=== PATIENT | male | born 1950 | race Caucasian/White ===

== ENCOUNTER → 2017-04-26 | Outpatient (CLI) | payer MEDICARE ==
[2017-04-26 11:00] LABS: Blood Urea Nitrogen 21 mg/dL (9-20)
== END | disposition home or self-care (01) ==
LOC: LABWHC1 10:19
PROVIDERS: ATTEND Orthopaedic Surgery
DX: S43.422A Sprain of left rotator cuff capsule, initial encounter (principal); M25.511 Pain in right shoulder; M75.41 Impingement syndrome of right shoulder; M65.811 Other synovitis and tenosynovitis, right shoulder; E11.9 Type 2 diabetes mellitus without complications; M19.011 Primary osteoarthritis, right shoulder; M25.512 Pain in left shoulder; M75.42 Impingement syndrome of left shoulder; M19.012 Primary osteoarthritis, left shoulder; M65.812 Other synovitis and tenosynovitis, left shoulder
CPT/HCPCS: 36415; 82565; 84520

== ENCOUNTER → 2017-04-30 | Outpatient (CLI) | payer MEDICARE ==
[2017-04-30 17:30] LABS: Blood Urea Nitrogen 21 mg/dL (9-20)
--- NOTE | 2017-04-30 18:08 | CT ---
EXAMINATION TYPE: CT shoulder RT w con DATE OF EXAM: 04/30/2017 COMPARISON: NONE HISTORY: Right shoulder pain. CT DLP: 318.8 mGycm Automated exposure control for dose reduction was used. CONTRAST: Performed with IV Contrast, patient injected with 100 mL of Omnipaque 300. FINDINGS: There is severe narrowing of the glenohumeral joint space. There is spurring of the humeral head and glenoid demi. There is subchondral cystic change on both sides of the shoulder joint. There is some spurring at the AC joint. There is some calcification at the greater tuberosity of the humerus. IMPRESSION: SEVERE OSTEOARTHRITIS AT THE GLENOHUMERAL JOINT. MILD CALCIFIC TENDINITIS. NO FRACTURE SEEN.
--- NOTE | 2017-04-30 18:42 | CT ---
EXAMINATION TYPE: CT shoulder LT w con DATE OF EXAM: 04/30/2017 COMPARISON: NONE HISTORY: Left shoulder pain and catching. CT DLP: 318.8 mGycm Automated exposure control for dose reduction was used. CONTRAST: Performed with IV Contrast, patient injected with 100 mL of Omnipaque 300. FINDINGS: There is extensive metal artifact from the left shoulder prosthesis. I see no fracture nor dislocatio n. There is spurring of the glenoid demi. The scapula appears intact. The acromioclavicular joint is intact. Prosthesis appears in reasonable anatomic position. I see no pathologic enhancement. IMPRESSION: LIMITED EXAM DUE TO METAL ARTIFACT. NO FRACTURE SEEN. PROSTHESIS APPEARS IN ANATOMIC POSITION.
== END | disposition home or self-care (01) ==
LOC: RADCTMAIN 15:50
PROVIDERS: ATTEND Orthopaedic Surgery
DX: M19.011 Primary osteoarthritis, right shoulder (principal); M25.512 Pain in left shoulder; M25.511 Pain in right shoulder; M75.41 Impingement syndrome of right shoulder; M65.811 Other synovitis and tenosynovitis, right shoulder; E11.9 Type 2 diabetes mellitus without complications; S43.422A Sprain of left rotator cuff capsule, initial encounter; M75.42 Impingement syndrome of left shoulder; M19.012 Primary osteoarthritis, left shoulder; M65.812 Other synovitis and tenosynovitis, left shoulder
CPT/HCPCS: 82565; 84520; 73201 ×2; Q9967

== ENCOUNTER → 2019-05-20 | Outpatient (CLI) | payer MEDICARE ==
--- NOTE | 2019-05-20 12:04 | XR ---
EXAMINATION TYPE: XR chest 2V DATE OF EXAM: 05/20/2019 COMPARISON: 10/19/2013 TECHNIQUE: PA and lateral views submitted. HISTORY: Preop FINDINGS: No pleural effusion or pneumothorax. Postsurgical change left shoulder. Degenerative change of the sp ine. Coarsened interstitium with subsegmental changes at both lung bases. IMPRESSION: 1. Basilar atelectasis bilaterally likely related to reduced inspiration. 2. Coarsened interstitium may been the basis of mild chronic interstitial lung disease or secondary t o poor inspiration. Interstitial pneumonitis or venous congestion felt less likely correlate clinical ly..
== END | disposition home or self-care (01) ==
LOC: RADXRMAIN 11:47
PROVIDERS: ATTEND Family Medicine
DX: J98.11 Atelectasis (principal); R91.8 Other nonspecific abnormal finding of lung field
CPT/HCPCS: 71046

== ENCOUNTER → 2019-10-01 | Outpatient (CLI) | payer MEDICARE ==
[2019-10-01 16:49] LABS: African American GFR (CKD) 101.4 (60.0-200.0); Albumin 4.1 g/dL (3.80-4.90); Albumin/Globulin Ratio 1.86 (1.60-3.17); Anion Gap 5.2 mmol/L (4.00-12.00); BUN/Creat Ratio 17.78 Ratio (12.00-20.00); Calcium 8.9 mg/dL (8.7-10.3); Carbon Dioxide 30.8 mmol/L (21.6-31.8); Chol/HDL Ratio 2.85; Globulin 2.2 g/dL (1.6-3.3); LDL Cholesterol,Calculated 59.8 mg/dL (0.0-131.0); Non-African American GFR(CKD) 87.5 (60.0-200.0); Potassium 4.3 mmol/L (3.5-5.5); Total Bilirubin 1.1 mg/dL (0.2-1.2); Total Protein 6.3 g/dL (6.2-8.2); VLDL Calculation 16.2 mg/dL (5.00-40.00)
[2019-10-01 17:45] LABS: Urine Creatinine 108.2 mg/dL
[2019-10-01 19:51] LABS: Hemoglobin A1C 7.1 % (4.0-6.0)
== END | disposition home or self-care (01) ==
LOC: LABWHC1 07:20
PROVIDERS: ATTEND Internal Medicine Endocrinology, Diabetes & Metabolism
DX: E11.65 Type 2 diabetes mellitus with hyperglycemia (principal)
CPT/HCPCS: 36415; 80053; 80061; 82043; 82570; 83036; 84443

== ENCOUNTER → 2020-01-11 | Outpatient (CLI) | payer MEDICARE ==
--- NOTE | 2020-01-11 16:11 | CT ---
EXAMINATION TYPE: CT chest wo con DATE OF EXAM: 01/11/2020 COMPARISON: Chest x-ray dated 12/24/2019 HISTORY: Pneumonia CT DLP: 1635.4 mGycm. Automated Exposure Control for Dose Reduction was Utilized. TECHNIQUE: CT scan of the thorax is performed without IV contrast in prone and supine positions in a limited fashion using high-resolution algorithm. FINDINGS: Lack of intravenous contrast could compromise sensitivity. LUNGS: The lungs are remarkable for some thickened parenchymal bands within the lingula, there is no concerning parenchymal mass or nodule identified. There is no pleural effusion or pneumothorax seen . The tracheobronchial tree is patent. MEDIASTINUM: Lack of IV contrast is noted to limit evaluation for mediastinal and especially hilar ad enopathy. There are no definitive greater than 1 cm hilar or mediastinal lymph nodes. No cardiomega ly or pericardial effusion is seen. There are prominent epicardial fat pads OTHER: Ascending aorta is aneurysmal at 4.8 cm, there are coronary artery calcifications, possible mi tral annular calcification. There is thoracic spondylosis. IMPRESSION: Pneumonia is not evident. Some probable scarring suspected within the lingula. Aortic ane urysm, coronary artery disease.
== END | disposition home or self-care (01) ==
LOC: RADCTMAIN 07:02
PROVIDERS: ATTEND Internal Medicine Critical Care Medicine
DX: I25.10 Atherosclerotic heart disease of native coronary artery without angina pectoris (principal); I25.41 Coronary artery aneurysm; J18.9 Pneumonia, unspecified organism
CPT/HCPCS: 71250

== ENCOUNTER 2020-05-10 12:43 | Inpatient (IN) | payer MEDICARE ==
[2020-05-10] MEDS ORDERED: ALBUTEROL NEBULIZED 2.5 MG/3 ML INHALATION STA (14:12)
--- NOTE | 2020-05-10 14:20 | ED ---
SOB HPI - General Chief Complaint: Shortness of Breath Stated Complaint: SOB Time Seen by Provider: 05/10/20 14:00 Source: patient, family, RN notes reviewed Mode of arrival: ambulatory Limitations: no limitations - History of Present Illness Initial Comments: Patient is 70-year-old male presents to emergency department complaining of shortness of breath. He noted that for about the last year he's been battling several bouts of pneumonia and has taken several antibiotic courses to no benefit. He states that he follows up with Dr. Lemos. He is also seen Dr. Galloway. He noted that the prednisone and albuterol inhaler help with shortness of breath temporarily. He noted that he is short of breath at rest, but can sit there for a decent amount time and then gets a dyspneic spell where he starts to cough. He noted that he has a dry cough and only infrequently gets a production of white/yellow mucus. He did note the patient has gained weight since being on steroids. Patient states that he has to sit up while laying in bed or chairs to prevent himself from being short of breath. She denied any chest pain headache nausea vomiting diarrhea constipation fever fatigue chills. 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 He does not smoke. - Related Data Home Medications Medication Instructions Recorded Confirmed Atorvastatin [Lipitor] 40 mg PO HS 07/26/13 05/10/20 Cetirizine HCl [Zyrtec] 10 mg PO DAILY 07/26/13 05/10/20 Albuterol Nebulized [Ventolin 2.5 mg INHALATION RT-QID PRN 05/10/20 05/10/20 Nebulized] Apixaban [Eliquis] 5 mg PO DAILY 05/10/20 05/10/20 Carvedilol [Coreg] 12.5 mg PO HS 05/10/20 05/10/20 Cyclobenzaprine [Flexeril] 10 mg PO TID PRN 05/10/20 05/10/20 Exenatide Microspheres [Bydureon 2 mg SQ MO 05/10/20 05/10/20 Pen] INSULIN ASPART (NovoLOG) [NovoLOG 5 - 15 unit SQ TID-W/MEALS 05/10/20 05/10/20 (formulary)] Insulin Glargine,Hum.rec.anlog 80 unit SQ DAILY 05/10/20 05/10/20 [Paulino Hicks] Magnesium Oxide [Funk] 500 mg PO HS 05/10/20 05/10/20 Multivitamins, Thera [Multivitamin 1 tab PO DAILY 05/10/20 05/10/20 (formulary)] Olmesartan Medoxomil [Benicar] 20 mg PO DAILY 05/10/20 05/10/20 Potassium Gluconate 99 mg PO HS 05/10/20 05/10/20 hydroCHLOROthiazide 25 mg PO DAILY 05/10/20 05/10/20 metFORMIN HCL [Glucophage] 1,000 mg PO BID 05/10/20 05/10/20 traMADol HCL [Ultram] 50 mg PO DAILY PRN 05/10/20 05/10/20 Allergies Allergy/AdvReac Type Severity Reaction Status Date / Time adhesive Allergy Rash/Hives Verified 05/10/20 12:59 Penicillins Allergy Rash/Hives Verified 05/10/20 12:59 Review of Systems ROS Statement: Those systems with pertinent positive or pertinent negative responses have been documented in the HPI. ROS Other: All systems not noted in ROS Statement are negative. Past Medical History Past Medical History: Diabetes Mellitus, Hyperlipidemia, Hypertension, Musculoskeletal Disorder, Sleep Apnea/CPAP/BIPAP Additional Past Medical History / Comment(s): HX OF BLACK LUNG, DOESN'T USE CPAP, History of Any Multi-Drug Resistant Organisms: None Reported Past Surgical History: Hernia Repair, Joint Replacement, Tonsillectomy Additional Past Surgical History / Comment(s): JACY KNEE REPLACEMENT, LEFT SHOULDER "BALL" REPLACED, Additional Past Anesthesia/Blood Transfusion Reaction / Comment(s): STATES HAS AWAKENED DURING SEVERAL SX INCLUDING JOINT REPLACEMENT Past Psychological History: No Psychological Hx Reported Smoking Status: Never smoker Past Alcohol Use History: None Reported Past Drug Use History: None Reported General Exam Limitations: no limitations General appearance: alert, in no apparent distress, obese Head exam: Present: atraumatic, normocephalic, normal inspection Eye exam: Present: normal appearance, PERRL, EOMI. Absent: scleral icterus, conjunctival injection, periorbital swelling ENT exam: Present: normal exam, mucous membranes moist Neck exam: Present: normal inspection. Absent: tenderness, meningismus, lymphadenopathy Respiratory exam: Present: wheezes (In the left middle lobe.), decreased breath sounds. Absent: respiratory distress, rales, rhonchi, stridor Cardiovascular Exam: Present: regular rate, normal rhythm, normal heart sounds. Absent: systolic murmur, diastolic murmur, rubs, gallop, clicks GI/Abdominal exam: Present: soft, normal bowel sounds. Absent: distended, tenderness, guarding, rebound, rigid Extremities exam: Present: normal inspection, full ROM, normal capillary refill. Absent: tenderness, pedal edema, joint swelling, calf tenderness Neurological exam: Present: alert, oriented X3, CN II-XII intact Psychiatric exam: Present: normal affect, normal mood Skin exam: Present: warm, dry, intact, normal color. Absent: rash Course Vital Signs 05/10/20 05/10/20 05/10/20 13:00 14:40 14:50 Temperature 98 F Pulse Rate 73 76 76 Respiratory 24 Rate Blood Pressure 149/88 O2 Sat by Pulse 93 L Oximetry 05/10/20 05/10/20 05/10/20 17:38 20:01 21:29 Temperature 97.9 F Pulse Rate 76 82 82 Respiratory 18 18 18 Rate Blood Pressure 114/66 124/75 133/79 O2 Sat by Pulse 93 L 94 L 94 L Oximetry - Reevaluation(s) Reevaluation #1: 05/10/20 16:12 Patient did note that the breathing treatment did improve his dyspnea. He noted that he was more relaxed. He was informed that we will be ordering a CT chest for PE. Reevaluation #2: 05/10/20 17:28 Upon reevaluation patient's blood glucose was borderline low, he was informed that we could give him a couple things of orange juice to raise her blood sugar. While he waits for CT. Medical Decision Making - Medical Decision Making 70-year-old male complaining of shortness of breath for the past year, located by several bouts of pneumonia. winemaker, EKG, oxygen via nasal cannula at 2 L/m him a labs, chest x-ray ordered. Albuterol nebulize treatment ordered. - Lab Data Result diagrams: 05/10/20 14:38 05/10/20 14:38 Lab Results 05/10/20 05/10/20 05/10/20 Range/Units 14:38 14:38 14:38 WBC 8.7 (3.8-10.6) k/uL RBC 6.06 H (4.30-5.90) m/uL Hgb 17.5 (13.0-17.5) gm/dL Hct 54.2 H (39.0-53.0) % MCV 89.5 (80.0-100.0) fL MCH 29.0 (25.0-35.0) pg MCHC 32.4 (31.0-37.0) g/dL RDW 14.2 (11.5-15.5) % Plt Count 242 (150-450) k/uL MPV 7.0 Neutrophils % 66 % Lymphocytes % 17 % Monocytes % 11 % Eosinophils % 3 % Basophils % 1 % Neutrophils # 5.7 (1.3-7.7) k/uL Lymphocytes # 1.5 (1.0-4.8) k/uL Monocytes # 1.0 (0-1.0) k/uL Eosinophils # 0.3 (0-0.7) k/uL Basophils # 0.1 (0-0.2) k/uL PT 10.2 (9.0-12.0) sec INR 0.9 (<1.2) APTT 24.7 (22.0-30.0) sec Sodium (137-145) mmol/L Potassium (3.5-5.1) mmol/L Chloride (98-107) mmol/L Carbon Dioxide (22-30) mmol/L Anion Gap mmol/L BUN (9-20) mg/dL Creatinine (0.66-1.25) mg/dL Est GFR (CKD-EPI)AfAm (>60 ml/min/1.73 sqM) Est GFR (CKD-EPI)NonAf (>60 ml/min/1.73 sqM) Glucose (74-99) mg/dL POC Glucose (mg/dL) (75-99) mg/dL POC Glu Label Drier ID Plasma Lactic Acid Vel (0.7-2.0) mmol/L Calcium (8.4-10.2) mg/dL Total Bilirubin (0.2-1.3) mg/dL AST (17-59) U/L ALT (4-49) U/L Alkaline Phosphatase (38-126) U/L Troponin I (0.000-0.034) ng/mL NT-Pro-B Natriuret Pep pg/mL Total Protein (6.3-8.2) g/dL Albumin (3.5-5.0) g/dL Urine Color Yellow Urine Appearance Clear (Clear) Urine pH 6.5 (5.0-8.0) Ur Specific Bradford 1.013 (1.001-1.035) Urine Protein Negative (Negative) Urine Glucose (UA) Negative (Negative) Urine Ketones Negative (Negative) Urine Blood Negative (Negative) Urine Nitrite Negative (Negative) Urine Bilirubin Negative (Negative) Urine Urobilinogen <2.0 (<2.0) mg/dL Ur Leukocyte Esterase Negative (Negative) Coronavirus (PCR) (Not Detectd) 05/10/20 05/10/20 05/10/20 Range/Units 14:38 14:38 14:38 WBC (3.8-10.6) k/uL RBC (4.30-5.90) m/uL Hgb (13.0-17.5) gm/dL Hct (39.0-53.0) % MCV (80.0-100.0) fL MCH (25.0-35.0) pg MCHC (31.0-37.0) g/dL RDW (11.5-15.5) % Plt Count (150-450) k/uL MPV Neutrophils % % Lymphocytes % % Monocytes % % Eosinophils % % Basophils % % Neutrophils # (1.3-7.7) k/uL Lymphocytes # (1.0-4.8) k/uL Monocytes # (0-1.0) k/uL Eosinophils # (0-0.7) k/uL Basophils # (0-0.2) k/uL PT (9.0-12.0) sec INR (<1.2) APTT (22.0-30.0) sec Sodium 139 (137-145) mmol/L Potassium 4.3 (3.5-5.1) mmol/L Chloride 100 (98-107) mmol/L Carbon Dioxide 31 H (22-30) mmol/L Anion Gap 8 mmol/L BUN 19 (9-20) mg/dL Creatinine 0.83 (0.66-1.25) mg/dL Est GFR (CKD-EPI)AfAm >90 (>60 ml/min/1.73 sqM) Est GFR (CKD-EPI)NonAf 90 (>60 ml/min/1.73 sqM) Glucose 77 (74-99) mg/dL POC Glucose (mg/dL) (75-99) mg/dL POC Glu Label Drier ID Plasma Lactic Acid Vel 1.4 (0.7-2.0) mmol/L Calcium 9.5 (8.4-10.2) mg/dL Total Bilirubin 1.8 H (0.2-1.3) mg/dL AST 34 (17-59) U/L ALT 38 (4-49) U/L Alkaline Phosphatase 80 (38-126) U/L Troponin I <0.012 (0.000-0.034) ng/mL NT-Pro-B Natriuret Pep pg/mL Total Protein 6.9 (6.3-8.2) g/dL Albumin 4.2 (3.5-5.0) g/dL Urine Color Urine Appearance (Clear) Urine pH (5.0-8.0) Ur Specific Bradford (1.001-1.035) Urine Protein (Negative) Urine Glucose (UA) (Negative) Urine Ketones (Negative) Urine Blood (Negative) Urine Nitrite (Negative) Urine Bilirubin (Negative) Urine Urobilinogen (<2.0) mg/dL Ur Leukocyte Esterase (Negative) Coronavirus (PCR) (Not Detectd) 05/10/20 05/10/20 05/10/20 Range/Units 14:38 17:24 18:51 WBC (3.8-10.6) k/uL RBC (4.30-5.90) m/uL Hgb (13.0-17.5) gm/dL Hct (39.0-53.0) % MCV (80.0-100.0) fL MCH (25.0-35.0) pg MCHC (31.0-37.0) g/dL RDW (11.5-15.5) % Plt Count (150-450) k/uL MPV Neutrophils % % Lymphocytes % % Monocytes % % Eosinophils % % Basophils % % Neutrophils # (1.3-7.7) k/uL Lymphocytes # (1.0-4.8) k/uL Monocytes # (0-1.0) k/uL Eosinophils # (0-0.7) k/uL Basophils # (0-0.2) k/uL PT (9.0-12.0) sec INR (<1.2) APTT (22.0-30.0) sec Sodium (137-145) mmol/L Potassium (3.5-5.1) mmol/L Chloride (98-107) mmol/L Carbon Dioxide (22-30) mmol/L Anion Gap mmol/L BUN (9-20) mg/dL Creatinine (0.66-1.25) mg/dL Est GFR (CKD-EPI)AfAm (>60 ml/min/1.73 sqM) Est GFR (CKD-EPI)NonAf (>60 ml/min/1.73 sqM) Glucose (74-99) mg/dL POC Glucose (mg/dL) 76 83 (75-99) mg/dL POC Glu Label Drier ID MarioDvein Tammy Plasma Lactic Acid Vel (0.7-2.0) mmol/L Calcium (8.4-10.2) mg/dL Total Bilirubin (0.2-1.3) mg/dL AST (17-59) U/L ALT (4-49) U/L Alkaline Phosphatase (38-126) U/L Troponin I (0.000-0.034) ng/mL NT-Pro-B Natriuret Pep 225 pg/mL Total Protein (6.3-8.2) g/dL Albumin (3.5-5.0) g/dL Urine Color Urine Appearance (Clear) Urine pH (5.0-8.0) Ur Specific Bradford (1.001-1.035) Urine Protein (Negative) Urine Glucose (UA) (Negative) Urine Ketones (Negative) Urine Blood (Negative) Urine Nitrite (Negative) Urine Bilirubin (Negative) Urine Urobilinogen (<2.0) mg/dL Ur Leukocyte Esterase (Negative) Coronavirus (PCR) (Not Detectd) 05/10/20 Range/Units 20:02 WBC (3.8-10.6) k/uL RBC (4.30-5.90) m/uL Hgb (13.0-17.5) gm/dL Hct (39.0-53.0) % MCV (80.0-100.0) fL MCH (25.0-35.0) pg MCHC (31.0-37.0) g/dL RDW (11.5-15.5) % Plt Count (150-450) k/uL MPV Neutrophils % % Lymphocytes % % Monocytes % % Eosinophils % % Basophils % % Neutrophils # (1.3-7.7) k/uL Lymphocytes # (1.0-4.8) k/uL Monocytes # (0-1.0) k/uL Eosinophils # (0-0.7) k/uL Basophils # (0-0.2) k/uL PT (9.0-12.0) sec INR (<1.2) APTT (22.0-30.0) sec Sodium (137-145) mmol/L Potassium (3.5-5.1) mmol/L Chloride (98-107) mmol/L Carbon Dioxide (22-30) mmol/L Anion Gap mmol/L BUN (9-20) mg/dL Creatinine (0.66-1.25) mg/dL Est GFR (CKD-EPI)AfAm (>60 ml/min/1.73 sqM) Est GFR (CKD-EPI)NonAf (>60 ml/min/1.73 sqM) Glucose (74-99) mg/dL POC Glucose (mg/dL) (75-99) mg/dL POC Glu Label Drier ID Plasma Lactic Acid Vel (0.7-2.0) mmol/L Calcium (8.4-10.2) mg/dL Total Bilirubin (0.2-1.3) mg/dL AST (17-59) U/L ALT (4-49) U/L Alkaline Phosphatase (38-126) U/L Troponin I (0.000-0.034) ng/mL NT-Pro-B Natriuret Pep pg/mL Total Protein (6.3-8.2) g/dL Albumin (3.5-5.0) g/dL Urine Color Urine Appearance (Clear) Urine pH (5.0-8.0) Ur Specific Bradford (1.001-1.035) Urine Protein (Negative) Urine Glucose (UA) (Negative) Urine Ketones (Negative) Urine Blood (Negative) Urine Nitrite (Negative) Urine Bilirubin (Negative) Urine Urobilinogen (<2.0) mg/dL Ur Leukocyte Esterase (Negative) Coronavirus (PCR) Not Detected (Not Detectd) - EKG Data -: EKG Interpreted by Me EKG Comments: Ventricular rate 73 bpm, SD interval*'s, QRS duration 106 she'll sinus, QT/QTc 416/458 ms, PheartT axes 2064/-67/98. Atrial flutter, left axis deviation, pulmonary disease pattern, incomplete right bundle branch block, inferior infarct, age undetermined, abnormal ECG. - Radiology Data Radiology results: report reviewed, image reviewed Chest x-ray: Mild cardiomegaly without acute pulmonary process CT chest angiogram:No acute PE or other cardiopulmonary abnormality. Disposition Clinical Impression: Dyspnea Disposition: ADMITTED IP TO THIS HOSP Is patient prescribed a controlled substance at d/c from ED?: No Time of Disposition: 21:45
--- NOTE | 2020-05-10 14:40 | XR ---
EXAMINATION TYPE: XR chest 2V DATE OF EXAM: 05/10/2020 COMPARISON: Chest x-ray May 20, 2019. CT chest January 11, 2020 HISTORY: Difficulty in breathing. Cough for one year. TECHNIQUE: Frontal and lateral views of the chest are obtained. FINDINGS: There is mild chronic parenchymal change without suspicious new focal air space opacity, p leural effusion, or pneumothorax seen. The cardiac silhouette size is stable and mildly enlarged. Gill rgical changes in both shoulders partially imaged. IMPRESSION: Mild cardiomegaly without acute pulmonary process.
[2020-05-10 14:53] LABS: Appearance,Urine Clear (Clear); Basophils # (A) 0.1 k/uL (0-0.2); Basophils % (A) 1 %; Bilirubin,Urine Negative (Negative); Blood,Urine Negative (Negative); Color,Urine Yellow; Eosinophils # (A) 0.3 k/uL (0-0.7); Eosinophils % (A) 3 %; Glucose,Urine (UA) Negative (Negative); HCT 54.2 % (39.0-53.0); HGB 17.5 gm/dL (13.0-17.5); Ketones,Urine Negative (Negative); Leukocyte Esterase,Urine Negative (Negative); Lymphocytes # (A) 1.5 k/uL (1.0-4.8); Lymphocytes % (A) 17 %; MCHC 32.4 g/dL (31.0-37.0); MCV 89.5 fL (80.0-100.0); Monocytes % (A) 11 %; Neutrophils # (A) 5.7 k/uL (1.3-7.7); Neutrophils % (A) 66 %; Nitrite,Urine Negative (Negative); PH, Urine 6.5 (5.0-8.0); Platelet Count 242 k/uL (150-450); Protein,Urine Negative (Negative); RBC 6.06 m/uL (4.30-5.90); RDW 14.2 % (11.5-15.5); Specific Gravity,Urine 1.013 (1.001-1.035); Urobilinogen,Urine <2.0 mg/dL (<2.0); WBC 8.7 k/uL (3.8-10.6)
[2020-05-10 15:04] LABS: INR 0.9 (<1.2); Partial Thromboplastin Time 24.7 sec (22.0-30.0); Prothrombin Time 10.2 sec (9.0-12.0)
[2020-05-10 15:08] LABS: ALT 38 U/L (4-49); AST 34 U/L (17-59); African American GFR (CKD) >90 (>60 ml/min/1.73 sqM); Albumin 4.2 g/dL (3.5-5.0); Alkaline Phosphatase 80 U/L (38-126); Anion Gap 8 mmol/L; Blood Urea Nitrogen 19 mg/dL (9-20); Calcium 9.5 mg/dL (8.4-10.2); Carbon Dioxide 31 mmol/L (22-30); Chloride 100 mmol/L (98-107); Glucose 77 mg/dL (74-99); Non-African American GFR(CKD) 90 (>60 ml/min/1.73 sqM); Potassium 4.3 mmol/L (3.5-5.1); Sodium 139 mmol/L (137-145); Total Bilirubin 1.8 mg/dL (0.2-1.3); Total Protein 6.9 g/dL (6.3-8.2)
[2020-05-10 17:25] LABS: Glucose,Whole Blood 76 mg/dL (75-99)
--- NOTE | 2020-05-10 18:11 | CT ---
EXAMINATION TYPE: CT chest angio for PE DATE OF EXAM: 05/10/2020 COMPARISON: Same-day radiograph. CT 01/11/2020. HISTORY: Dyspnea upon exertion x1 year. CT DLP: 856.7 mGycm Automated exposure control for dose reduction was used. CONTRAST: CT Chest for pulmonary embolism performed with with IV Contrast, patient injected with 100ml mL of Is ovue 370. FINDINGS: LUNGS: The lungs are grossly clear, there is no concerning parenchymal mass or nodule identified. T here is no pleural effusion or pneumothorax seen. The tracheobronchial tree is patent. MEDIASTINUM: There is satisfactory enhancement of the pulmonary artery and its branches, there is no CT evidence for pulmonary embolism. There are no greater than 1 cm hilar or mediastinal lymph nodes. No pericardial effusion is seen. OTHER: No additional significant abnormality is seen. Moderate to severe lumbar spondylosis with ank ylosis of T7-T9. IMPRESSION: No acute PE or other cardiopulmonary abnormality.
[2020-05-10 18:53] LABS: Glucose,Whole Blood 83 mg/dL (75-99)
[2020-05-10] MEDS ORDERED: ALBUTEROL NEBULIZED 2.5 MG/3 ML INHALATION PRN (21:11)
[2020-05-10] MEDS ORDERED: traMADol 50 MG TAB PO PRN (21:11)
[2020-05-10] MEDS ORDERED: CYCLOBENZAPRINE 10 MG TAB PO PRN (21:11)
[2020-05-11] MEDS: IPRATROPIUM-ALBUTEROL 3 ML NEB INHALATION PRN (00:34)
[2020-05-11 07:20] LABS: Glucose,Whole Blood 186 mg/dL (75-99)
[2020-05-11] MEDS ORDERED: INSULIN ASPART (NovoLOG) 100 UNIT/ML VIAL SQ SCH (07:30)
[2020-05-11] MEDS: IPRATROPIUM-ALBUTEROL 3 ML NEB INHALATION SCH ×4 (07:51→19:49)
[2020-05-11] MEDS: INSULIN DETEMIR (LEVEMIR) 100 UNIT/ML SYR SQ SCH (08:44)
[2020-05-11] MEDS: INSULIN ASPART (NovoLOG) 100 UNIT/ML VIAL SQ SCH ×5 (08:44→22:50)
[2020-05-11] MEDS: PANTOPRAZOLE 40 MG TABLET PO SCH (08:46)
[2020-05-11] MEDS: metFORMIN 500 MG TAB PO SCH ×2 (08:46→22:51)
[2020-05-11] MEDS: LOSARTAN 50 MG TAB PO SCH (08:47)
[2020-05-11] MEDS: hydroCHLOROthiazide 25 MG TAB PO SCH (08:47)
[2020-05-11] MEDS: MULTIVITAMINS, THERA 1 EACH TAB PO SCH (08:47)
[2020-05-11] MEDS ORDERED: APIXABAN 5 MG TAB PO SCH (09:00)
[2020-05-11] MEDS ORDERED: dexAMETHasone 2 MG TAB PO SCH (09:00)
[2020-05-11 09:20] LABS: HCT 53.3 % (39.6-50.0); HGB 16.5 g/dL (13.0-17.0); MCH 28.5 pg (27.0-32.0); MCV 92.2 fL (80.0-97.0); Mean Platelet Volume 9.7 fL (9.5-12.2); Platelet Count 217 X 10*3/uL (140-440); RBC 5.78 X 10*6/uL (4.40-5.60); RDW 14.4 % (11.5-14.5); WBC 7.62 X 10*3/uL (4.50-10.00)
[2020-05-11] MEDS: DOXYCYCLINE 100 MG CAP PO SCH (09:35)
[2020-05-11] MEDS: acetaZOLAMIDE 250 MG TAB PO SCH (09:35)
[2020-05-11] MEDS: LORATADINE 10 MG TAB PO SCH (09:40)
[2020-05-11 10:18] LABS: African American GFR (CKD) 88.6 (60.0-200.0); Albumin 4.2 g/dL (3.80-4.90); Albumin/Globulin Ratio 2.33 (1.60-3.17); Anion Gap 10.1 mmol/L (4.00-12.00); Calcium 8.7 mg/dL (8.7-10.3); Carbon Dioxide 29.9 mmol/L (21.6-31.8); Globulin 1.8 g/dL (1.6-3.3); Non-African American GFR(CKD) 76.5 (60.0-200.0); Potassium 4.4 mmol/L (3.5-5.5); Total Bilirubin 1.6 mg/dL (0.2-1.2)
--- NOTE | 2020-05-11 10:46 | ECHOF ---
Referral Reason:LVF MEASUREMENTS -------- HEIGHT: 172.7 cm WEIGHT: 152.0 kg BP: 134/84 RVIDd: 3.3 cm (< 3.3) IVSd: 1.8 cm (0.6 - 1.1) LVIDd: 4.2 cm (3.9 - 5.3) LVPWd: 1.6 cm (0.6 - 1.1) IVSs: 2.0 cm LVIDs: 2.1 cm LVPWs: 2.1 cm LA Diam: 4.2 cm (2.7 - 3.8) Ao Diam: 3.3 cm (2.0 - 3.7) AV Cusp: 2.1 cm (1.5 - 2.6) AV maxP.92 mmHg AV meanP.69 mmHg RAP: 5.00 mmHg RVSP: 40.64 mmHg FINDINGS -------- This was a technically difficult study with suboptimal views. The left ventricular size is normal. There is severe concentric left ventricular hypertrophy. Lef t ventricular systolic function is hyperdynamic with an estimated EF of >70%. The right ventricle is mildly enlarged. The left atrium is mildly dilated. The right atrium is normal in size. 5.0mg of Lumason was utilized for enhancement of images Interatrial and interventricular septum intact. Aortic valve is trileaflet and is mildly thickened. Peak/mean gradient across the Aortic Valve is 1 4.92mmHg / 8.69mmHg. The mitral valve is normal. Mild tricuspid regurgitation present. There is mild pulmonary hypertension. The right ventricular systolic pressure, as measured by Doppler, is 40.64mmHg. The pulmonic valve was not well visualized. The aortic root size is normal. Normal inferior vena cava with normal inspiratory collapse consistent with estimated right atrial pre ssure of 5 mmHg. There is no pericardial effusion. CONCLUSIONS -------- 1. This was a technically difficult study with suboptimal views. 2. The left ventricular size is normal. 3. There is severe concentric left ventricular hypertrophy. 4. Left ventricular systolic function is hyperdynamic with an estimated EF of >70%. 5. The right ventricle is mildly enlarged. 6. The left atrium is mildly dilated. 7. 5.0mg of Lumason was utilized for enhancement of images 8. Aortic valve is trileaflet and is mildly thickened. 9. Peak/mean gradient across the Aortic Valve is 14.92mmHg / 8.69mmHg. 10. Mild tricuspid regurgitation present. 11. There is mild pulmonary hypertension. 12. The right ventricular systolic pressure, as measured by Doppler, is 40.64mmHg. 13. There is no pericardial effusion. ACOUSTICAL ENGINEER: CALISTA Cruz
[2020-05-11 11:40] LABS: Glucose,Whole Blood 217 mg/dL (75-99)
--- NOTE | 2020-05-11 11:47 | P.CNPUL ---
History of Present Illness Consult date: 05/11/20 Requesting physician: Salbador Ward Reason for consult: dyspnea, cough, asthma, COPD Chief complaint: Shortness of breath and cough. History of present illness: 70-year-old male, who presented to the emergency department, complaining of shortness of breath and cough. He's had this problem for about a year or so. I saw him for the first time in the office back in December 2019. When I saw him, his complaint was that of recurrent episodes of bronchitis, requiring antibiotics and corticosteroids. When I saw him, I was impressed with the fact that he likely had acute bronchospasm, of unclear etiology. I thought it might relate to underlying infection. He is a lifelong nonsmoker. His pulmonary function was more consistent with restriction. He had a computed tomography scan which did not reveal any major abnormalities other than for some minor lingular scarring. On this admission, the patient had a chest x-ray that was normal, and a CT angiogram that was negative, for anything acute, and negative for pulmonary embolism. He does cough up occasional phlegm, with some slight yellow mucus. He seems to think that sometimes it relates to his sinuses. He does get relief with breathing treatments and corticosteroids although, the corticosteroids have caused him to gain weight. 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 Again, he is a lifelong nonsmoker. He is quite obese. In addition to the above, I did recommend a sleep evaluation for possible obstructive sleep apnea syndrome. He has a history of diabetes mellitus, hyperlipidemia, hypertension, and probable sleep apnea syndrome. He apparently was recently scheduled for sleep study but canceled it. He also tells me that he has a history of "black lung". Review of Systems REVIEW OF SYSTEMS: CONSTITUTIONAL: [Negative.] NEUROLOGIC: [ Negative.] HEENT: [ Negative.] CARDIAC: [Negative.] PULMONARY: Shortness of breath, cough, occasional phlegm production. GI: [Negative.] : [Negative.] RHEUMATOLOGIC: [ Negative.] IMMUNOLOGIC: [ Negative.] ENDOCRINE: [Negative. ] DERMATOLOGIC: [Negative.] Past Medical History Past Medical History: Atrial Flutter, COPD, Diabetes Mellitus, Hyperlipidemia, Hypertension, Musculoskeletal Disorder, Pneumonia, Prostate Disorder, Sleep Apnea/CPAP/BIPAP Additional Past Medical History / Comment(s): HX OF BLACK LUNG, DOESN'T USE CPAP, History of Any Multi-Drug Resistant Organisms: None Reported Past Surgical History: Back Surgery, Hernia Repair, Joint Replacement, Tonsillectomy Additional Past Surgical History / Comment(s): JACY KNEE REPLACEMENT, LEFT SHOULDER "BALL" REPLACED, Additional Past Anesthesia/Blood Transfusion Reaction / Comment(s): STATES HAS AWAKENED DURING SEVERAL SX INCLUDING JOINT REPLACEMENT Past Psychological History: No Psychological Hx Reported Smoking Status: Never smoker Past Alcohol Use History: None Reported Past Drug Use History: None Reported - Past Family History Mother Family Medical History: CVA/TIA Father Additional Family Medical History / Comment(s): etoh Medications and Allergies Home Medications Medication Instructions Recorded Confirmed Type Atorvastatin [Lipitor] 40 mg PO HS 07/26/13 05/10/20 History Cetirizine HCl [Zyrtec] 10 mg PO DAILY 07/26/13 05/10/20 History Albuterol Nebulized [Ventolin 2.5 mg INHALATION RT-QID PRN 05/10/20 05/10/20 History Nebulized] Apixaban [Eliquis] 5 mg PO DAILY 05/10/20 05/10/20 History Carvedilol [Coreg] 12.5 mg PO HS 05/10/20 05/10/20 History Cyclobenzaprine [Flexeril] 10 mg PO TID PRN 05/10/20 05/10/20 History Exenatide Microspheres [Bydureon 2 mg SQ MO 05/10/20 05/10/20 History Pen] INSULIN ASPART (NovoLOG) [NovoLOG 5 - 15 unit SQ TID-W/MEALS 05/10/20 05/10/20 History (formulary)] Insulin Glargine,Hum.rec.anlog 80 unit SQ DAILY 05/10/20 05/10/20 History [Tokrista Solostdesiree] Magnesium Oxide [Funk] 500 mg PO HS 05/10/20 05/10/20 History Multivitamins, Thera [Multivitamin 1 tab PO DAILY 05/10/20 05/10/20 History (formulary)] Olmesartan Medoxomil [Benicar] 20 mg PO DAILY 05/10/20 05/10/20 History Potassium Gluconate 99 mg PO HS 05/10/20 05/10/20 History hydroCHLOROthiazide 25 mg PO DAILY 05/10/20 05/10/20 History metFORMIN HCL [Glucophage] 1,000 mg PO BID 05/10/20 05/10/20 History traMADol HCL [Ultram] 50 mg PO DAILY PRN 05/10/20 05/10/20 History Allergies Allergy/AdvReac Type Severity Reaction Status Date / Time adhesive Allergy Rash/Hives Verified 05/10/20 12:59 Penicillins Allergy Rash/Hives Verified 05/10/20 12:59 Physical Exam Osteopathic Statement: *. No significant issues noted on an osteopathic structural exam other than those noted in the History and Physical/Consult. Vitals: Vital Signs Temp Pulse Pulse Pulse Resp BP BP 05/11/20 08:01 82 05/11/20 08:00 20 05/11/20 07:51 79 05/11/20 07:00 97.7 F 104 H 20 134/84 05/11/20 02:55 98.1 F 50 L 20 136/89 05/11/20 00:37 88 05/10/20 21:56 97.5 F L 87 22 120/81 05/10/20 21:29 97.9 F 82 18 133/79 05/10/20 20:01 82 18 124/75 05/10/20 17:38 76 18 114/66 05/10/20 14:50 76 05/10/20 14:40 76 05/10/20 13:00 98 F 73 24 149/88 Pulse Ox 05/11/20 08:01 05/11/20 08:00 05/11/20 07:51 95 05/11/20 07:00 95 05/11/20 02:55 92 L 05/11/20 00:37 05/10/20 21:56 94 L 05/10/20 21:29 94 L 05/10/20 20:01 94 L 05/10/20 17:38 93 L 05/10/20 14:50 05/10/20 14:40 05/10/20 13:00 93 L Intake and Output 05/10/20 05/11/20 05/11/20 22:59 06:59 14:59 Intake Total 416 Balance 416 Intake: Oral 416 Other: Voiding Method Toilet # Voids 1 Weight 151.953 kg No acute distress, oriented 3. Frequent wet cough, and no conversational dyspnea, or audible wheezing. HEENT examination is grossly unremarkable. Mucous membranes are moist. No oral lesions. Neck supple. Full range of motion. No adenopathy thyromegaly or neck vein distention. Cardiovascular examination reveals regular rhythm rate. S1-S2 normal. No S3 or S4. No discernible murmur noted. Heart sounds are distant. Heart rate is 75 bpm. Lungs reveal expiratory wheezes and rhonchi. The patient is bronchospastic. No crackles. Slight prolongation on forced maneuver. Exhalation does cause the patient to cough. Abdomen soft bowel sounds are heard. No masses or tenderness. Extremities are intact. No cyanosis clubbing or edema. Skin is without rash or lesion. Neurologic examination is brief but nonfocal. Results - Laboratory Findings CBC and BMP: 05/11/20 05:24 05/11/20 05:24 PT/INR, D-dimer PT 10.2 sec (9.0-12.0) 05/10/20 14:38 INR 0.9 (<1.2) 05/10/20 14:38 Abnormal lab findings: Abnormal Labs 05/10/20 05/10/20 05/11/20 14:38 14:38 05:24 RBC 6.06 H 5.78 H Hct 54.2 H 53.3 H MCHC 31.0 L Carbon Dioxide 31 H Glucose POC Glucose (mg/dL) Total Bilirubin 1.8 H Total Protein 05/11/20 05/11/20 05:24 07:17 RBC Hct MCHC Carbon Dioxide Glucose 259 H POC Glucose (mg/dL) 186 H Total Bilirubin 1.6 H Total Protein 6.0 L - Diagnostic Findings Chest x-ray: image reviewed CT scan - chest: image reviewed Assessment and Plan Assessment: Acute on chronic bronchitis with bronchospasm, possibly related to underlying asthma. No evidence of any acute process on CT angiogram including pulmonary embolism. History of hyperlipidemia. Probable sleep apnea syndrome. History of diabetes mellitus. History of hypertension. Morbid obesity. Plan: Plan dated 05/11/2020. The patient's white count is 7.62, hemoglobin 16.5, hematocrit 53.3, and emy telet count 217,000. PT, INR, and PTT are normal. Electrolyte profile including sodium, potassium, chloride, CO2, anion gap, BUN, and creatinine, are normal. Calcium 8.7, bilirubin 1.6, liver function tests normal. N-terminal proBNP normal. Troponin negative. Urine was negative. Chest x-ray and CAT scan of both reviewed. No abnormalities noted. Office notes are reviewed. Medications will be reviewed. The patient should be on Solu-Medrol 60 mg every 6 hours, Pulmicort and formoterol twice a day, and duo nebs 4 times a day and when necessary. In addition, will put him on an oral antibiotic. Additional recommendations and suggestions are forthcoming. Prognosis is guarded. Time with Patient: Greater than 30
[2020-05-11] MEDS ORDERED: INSULIN ASPART (NovoLOG) 100 UNIT/ML VIAL SQ ONE (12:01)
[2020-05-11] MEDS: methylPREDNISolone SOD SUCCI 125 MG/2 ML VIAL IV SCH ×2 (12:22→17:51)
--- NOTE | 2020-05-11 13:11 | P.HPIM ---
History of Present Illness H&P Date: 05/11/20 HISTORY OF PRESENT ILLNESS This is a 70-year-old male patient of Dr. Lemos and Dr. Galloway with past medical history of diabetes mellitus type 2, hypertension, hy perlipidemia, suspected obstructive sleep apnea, history of atrial flutter on eliquis. He complains of cough and has been seen by Dr. Nava and placed on steroids on 2 episodes along with antibiotics. He states that he completes the steroids and the cough returns in about 2 weeks after that. He states he is having difficulty laying flat cough and choking. Patient states he was at his PCP office for a regularly scheduled appointment and his doctor found him gasping for air was unable to catch his breath and was instructed to come in the hospital for evaluation. Patient presented to [facility] emergency center and found to be afebrile, heart rate 73, respiratory rate 24, blood pressure 149/88, pulse ox 93% on room air. Chest x-ray revealed mild cardiomegaly without acute pulmonary process. CAT scan angiogram of the chest showed no pulmonary embolism. No cardial pulm onary abnormality. CBC is unremarkable. CO2 31 otherwise electrolytes and renal function normal. Blood sugar 77. Urinalysis negative for infection. Lactic acid 1.4. Troponin negative. Liver function tests within normal limits. ProBNP 225. Carotid virus PCR not detected. EKG atrial flutter. Echocardiogram reveals EF greater than 70%, severe concentric left and clear hypertrophy, mild tricuspid regurgitation, mild pulmonary hypertension. [facility] and consult with pulmonary medicine requested. REVIEW OF SYSTEMS Constitutional: No fever, no chills, no night sweats. No weight change. No weakness, fatigue or lethargy. No daytime sleepiness. EENT: No headache. No blurred vision or double vision, no loss of vision. No loss of Hearing, no ringing in the ears, no dizziness. No nasal drainage or congestion. No epistaxis. No sore throat. Lungs: Reports shortness of breath, reports cough, no sputum production. Reports wheezing. Cardiovascular: No chest pain, no lower extremity edema. No palpitations. No paroxysmal nocturnal dyspnea. Reports orthopnea. No lightheadedness or dizziness. No syncopal episodes. Abdominal: No abdominal pain. No nausea, vomiting. No diarrhea. No constipation. No bloody or tarry stools.. No loss of appetite. Genitourinary: No dysuria, increased frequency, urgency. No urinary retention. Musculoskeletal: No myalgias. No muscle weakness, no gait dysfunction, no frequent falls. No back pain. No neck pain. Integumentary: No wounds, no lesions. No rash or pruritus. No unusual b ruising. No change in hair or nails. Neurologic: No aphasia. No facial droop. No change in mentation. No head injury. No headache. No paralysis. No paresthesia. Psychiatric: No depression. No anxiety. Endocrine: No abnormal blood sugars. SOCIAL HISTORY Patient is a lifelong nonsmoker, no illicit drug use, no marijuana use. No alcohol abuse. 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 He does not have oxygen, nebulizer, CPAP. FAMILY HISTORY Father is alive at age 89 with history of alcohol abuse. Mother in her late 60s from a CVA. Patient has 2 sisters and 1 brother. One brother has diabetes. PHYSICAL EXAMINATION Gen: This is a morbidly obese male sitting in recliner and appears to be comfortable at rest. HEENT: Head is atraumatic, normocephalic. Pupils equal, round. Sclerae is anicteric. NECK: Supple. No JVD. No lymphadenopathy. No thyromegaly. LUNGS: Scattered wheezes and rhonchi throughout. No intercostal retractions. HEART: Regular rate and rhythm. No murmur. ABDOMEN: Soft. Bowel sounds are present. No masses. No tenderness. EXTREMITIES: No pedal edema. No calf tenderness. Dorsalis pedis palpable bilaterally. NEUROLOGICAL: Patient is awake, alert and oriented x3. Cranial nerves 2 through 12 are grossly intact. ASSESSMENT AND PLAN 1. Acute on chronic bronchitis with bronchospasm, no pneumonia noted on CT/chest x-ray. Consult with pulmonary medicine appreciated. Continue DuoNeb treatments 4 times daily and every 4 hours as needed, Pulmicort 1 mg twice daily, doxycycline 100 mg twice daily, Diamox 250 mg daily, Solu-Medrol 60 mg IV every 6 hours, Perforomist. 2. Suspected obstructive sleep apnea. Patient has been advised for sleep study. 3. History of atrial flutter. Continue eliquis 5 mg twice daily. 4. Hypertension. Continue Coreg 12.5 mg at bedtime, hydrochlorothiazide 25 mg daily, Benicar 20 mg daily. 5. Hyperlipidemia. Continue Lipitor 40 mg at bedtime. 6. Diabetes mellitus type 2. Continue Levemir 60 units daily, NovoLog scale before meals and at bedtime, metformin 1000 mg twice daily. 7. Seasonal ALLERGIES. Claritin 10 mg daily, Singulair 10 mg at bedtime. 8. Suspected GERD and GI prophylaxis. Protonix 40 mg daily. 9. DVT prophylaxis. Heparin subcu. Patient will be admitted to the hospital for a minimum of 2 night stay. DISCHARGE PLAN Home from a possible home care. Impression and plan of care have been directed as dictated by the signing physician. Tawnya Mir nurse practitioner acting as scribe for signing physician. Past Medical History Past Medical History: Atrial Flutter, COPD, Diabetes Mellitus, Hyperlipidemia, Hypertension, Musculoskeletal Disorder, Pneumonia, Prostate Disorder, Sleep Apnea/CPAP/BIPAP Additional Past Medical History / Comment(s): HX OF BLACK LUNG, DOESN'T USE CPAP, History of Any Multi-Drug Resistant Organisms: None Reported Past Surgical History: Back Surgery, Hernia Repair, Joint Replacement, Tonsillectomy Additional Past Surgical History / Comment(s): JACY KNEE REPLACEMENT, LEFT SHOULDER "BALL" REPLACED, right shoulder reverse arthroplasty in September 2019 at [facility] Additional Past Anesthesia/Blood Transfusion Reaction / Comment(s): STATES HAS AWAKENED DURING SEVERAL SX INCLUDING JOINT REPLACEMENT Past Psychological History: No Psychological Hx Reported Smoking Status: Never smoker Past Alcohol Use History: None Reported Past Drug Use History: None Reported - Past Family History Mother Family Medical History: CVA/TIA Father Additional Family Medical History / Comment(s): etoh Medications and Allergies Home Medications Medication Instructions Recorded Confirmed Type Atorvastatin [Lipitor] 40 mg PO HS 07/26/13 05/10/20 History Cetirizine HCl [Zyrtec] 10 mg PO DAILY 07/26/13 05/10/20 History Albuterol Nebulized [Ventolin 2.5 mg INHALATION RT-QID PRN 05/10/20 05/10/20 History Nebulized] Apixaban [Eliquis] 5 mg PO DAILY 05/10/20 05/10/20 History Carvedilol [Coreg] 12.5 mg PO HS 05/10/20 05/10/20 History Cyclobenzaprine [Flexeril] 10 mg PO TID PRN 05/10/20 05/10/20 History Exenatide Microspheres [Bydureon 2 mg SQ MO 05/10/20 05/10/20 History Pen] INSULIN ASPART (NovoLOG) [NovoLOG 5 - 15 unit SQ TID-W/MEALS 05/10/20 05/10/20 History (formulary)] Insulin Glargine,Hum.rec.anlog 80 unit SQ DAILY 05/10/20 05/10/20 History [Tokrista Solluciano] Magnesium Oxide [Funk] 500 mg PO HS 05/10/20 05/10/20 History Multivitamins, Thera [Multivitamin 1 tab PO DAILY 05/10/20 05/10/20 History (formulary)] Olmesartan Medoxomil [Benicar] 20 mg PO DAILY 05/10/20 05/10/20 History Potassium Gluconate 99 mg PO HS 05/10/20 05/10/20 History hydroCHLOROthiazide 25 mg PO DAILY 05/10/20 05/10/20 History metFORMIN HCL [Glucophage] 1,000 mg PO BID 05/10/20 05/10/20 History traMADol HCL [Ultram] 50 mg PO DAILY PRN 05/10/20 05/10/20 History Allergies Allergy/AdvReac Type Severity Reaction Status Date / Time adhesive Allergy Rash/Hives Verified 05/10/20 12:59 Penicillins Allergy Rash/Hives Verified 05/10/20 12:59 Physical Exam Vitals: Vital Signs Temp Pulse Pulse Pulse Resp BP BP 05/11/20 08:01 82 05/11/20 07:51 79 05/11/20 07:00 97.7 F 104 H 20 134/84 05/11/20 02:55 98.1 F 50 L 20 136/89 05/11/20 00:37 88 05/10/20 21:56 97.5 F L 87 22 120/81 05/10/20 21:29 97.9 F 82 18 133/79 05/10/20 20:01 82 18 124/75 05/10/20 17:38 76 18 114/66 05/10/20 14:50 76 05/10/20 14:40 76 05/10/20 13:00 98 F 73 24 149/88 Pulse Ox 02/24/21 08:01 05/11/20 07:51 95 05/11/20 07:00 95 05/11/20 02:55 92 L 05/11/20 00:37 05/10/20 21:56 94 L 05/10/20 21:29 94 L 05/10/20 20:01 94 L 05/10/20 17:38 93 L 05/10/20 14:50 05/10/20 14:40 05/10/20 13:00 93 L Intake and Output 05/10/20 05/11/20 05/11/20 22:59 06:59 14:59 Other: # Voids 1 Weight 151.953 kg Results CBC & Chem 7: 05/11/20 05:24 05/11/20 05:24 Labs: Abnormal Lab Results - Last 24 Hours (Table) 05/10/20 05/10/20 05/11/20 Range/Units 14:38 14:38 07:17 RBC 6.06 H (4.30-5.90) m/uL Hct 54.2 H (39.0-53.0) % Carbon Dioxide 31 H (22-30) mmol/L POC Glucose (mg/dL) 186 H (75-99) mg/dL Total Bilirubin 1.8 H (0.2-1.3) mg/dL Thrombosis Risk Factor Assmnt - Choose All That Apply Any of the Below Risk Factors Present?: Yes Each Factor Represents 1 point: Abnormal pulmonary function (COPD), Obesity (BMI >25) Other Risk Factors: Yes Each Risk Factor Represents 2 Points: Age 61-74 years Other congenital or acquired thrombophilia - If yes, enter type in comment: No Thrombosis Risk Factor Assessment Total Risk Factor Score: 4 Thrombosis Risk Factor Assessment Level: Moderate Risk
[2020-05-11 16:40] LABS: Glucose,Whole Blood 237 mg/dL (75-99)
[2020-05-11] MEDS: carvediloL 12.5 MG TAB PO SCH (17:40)
[2020-05-11 19:45] LABS: Glucose,Whole Blood 284 mg/dL (75-99)
[2020-05-11] MEDS: FORMOTEROL FUMARATE 20 MCG/2 ML NEBU INHALATION SCH (19:49)
[2020-05-11] MEDS: BUDESONIDE 1 MG/2 ML NEBU INHALATION SCH (19:49)
[2020-05-11] MEDS ORDERED: NON FORMULARY DRUG (Potassium Gluconate [Potassium Gluconate] 99 MG Tablet.Er) PO SCH (21:00)
[2020-05-11] MEDS ORDERED: carvediloL 12.5 MG TAB PO SCH (21:00)
[2020-05-11] MEDS: MONTELUKAST 10 MG TAB PO SCH (22:51)
[2020-05-11] MEDS: APIXABAN 5 MG TAB PO SCH (22:51)
[2020-05-11] MEDS: MAGNESIUM OXIDE 400 MG TAB PO SCH ×2 (22:51→22:52)
[2020-05-11] MEDS: ATORVASTATIN 40 MG TAB PO SCH (22:52)
[2020-05-12] MEDS: methylPREDNISolone SOD SUCCI 125 MG/2 ML VIAL IV SCH ×4 (00:17→21:36)
[2020-05-12 00:22] LABS: Glucose,Whole Blood 313 mg/dL (75-99)
[2020-05-12] MEDS ORDERED: INSULIN ASPART (NovoLOG) 100 UNIT/ML VIAL SQ ONE (00:25)
[2020-05-12] MEDS: DOXYCYCLINE 100 MG CAP PO SCH ×3 (00:34→21:41)
[2020-05-12 05:05] LABS: Glucose,Whole Blood 263 mg/dL (75-99)
[2020-05-12 07:01] LABS: Glucose,Whole Blood 282 mg/dL (75-99)
[2020-05-12] MEDS: IPRATROPIUM-ALBUTEROL 3 ML NEB INHALATION SCH ×4 (07:20→19:27)
[2020-05-12] MEDS: BUDESONIDE 1 MG/2 ML NEBU INHALATION SCH ×2 (07:20→19:27)
[2020-05-12] MEDS: FORMOTEROL FUMARATE 20 MCG/2 ML NEBU INHALATION SCH ×2 (07:20→19:40)
[2020-05-12] MEDS: INSULIN DETEMIR (LEVEMIR) 100 UNIT/ML SYR SQ SCH (08:14)
[2020-05-12] MEDS: INSULIN ASPART (NovoLOG) 100 UNIT/ML VIAL SQ SCH ×7 (08:15→21:37)
[2020-05-12] MEDS: LORATADINE 10 MG TAB PO SCH (08:16)
[2020-05-12] MEDS: hydroCHLOROthiazide 25 MG TAB PO SCH (08:16)
[2020-05-12] MEDS: MULTIVITAMINS, THERA 1 EACH TAB PO SCH (08:16)
[2020-05-12] MEDS: metFORMIN 500 MG TAB PO SCH ×2 (08:16→21:38)
[2020-05-12] MEDS: carvediloL 12.5 MG TAB PO SCH ×2 (08:16→18:30)
[2020-05-12] MEDS: LOSARTAN 50 MG TAB PO SCH (08:16)
[2020-05-12] MEDS: APIXABAN 5 MG TAB PO SCH ×2 (08:16→21:38)
[2020-05-12] MEDS: PANTOPRAZOLE 40 MG TABLET PO SCH (08:16)
[2020-05-12] MEDS: acetaZOLAMIDE 250 MG TAB PO SCH (08:16)
--- NOTE | 2020-05-12 08:46 | P.PN ---
Subjective Progress Note Date: 05/12/20 HISTORY OF PRESENT ILLNESS This is a 70-year-old male patient of Dr. Lemos and Dr. Galloway with past medical history of diabetes mellitus type 2, hypertension, hyperlip idemia, suspected obstructive sleep apnea, history of atrial flutter on eliquis. He complains of cough and has been seen by Dr. Nava and placed on steroids on 2 episodes along with antibiotics. He states that he completes the steroids and the cough returns in about 2 weeks after that. He states he is having difficulty laying flat cough and choking. Patient states he was at his PCP office for a regularly scheduled appointment and his doctor found him gasping for air was unable to catch his breath and was instructed to come in the hospital for evaluation. Patient presented to [facility] emergency center and found to be afebrile, heart rate 73, respiratory rate 24, blood pressure 149/88, pulse ox 93% on room air. Chest x-ray revealed mild cardiomegaly without acute pulmonary process. CAT scan angiogram of the chest showed no pulmonary embolism. No cardial pulmonary abnormality. CBC is unremarkable. CO2 31 otherwise electrolytes and renal function normal. Blood sugar 77. Urinalysis negative for infection. Lactic acid 1.4. Troponin negative. Liver function tests within normal limits. ProBNP 225. Carotid virus PCR not detected. EKG atrial flutter. Echo cardiogram reveals EF greater than 70%, severe concentric left and clear hypertrophy, mild tricuspid regurgitation, mild pulmonary hypertension. Patient admitted to the [facility] floor and consult with pulmonary medicine requested. 05/12: Has been seen by phone or medicine and medications have been adjusted. No plan for bronchoscopy. He has been started on Solu-Medrol 60 mg IV every 6 hours. Blood sugars have been running in the 200s to low 300s and NovoLog with meals has been added. He has been afebrile, heart rate 104, blood pressure 118/80, pulse ox 92% on room air. Patient states he was able to lie flat for 3 hours last night without coughing. He starts coughing with deep inspiration. No fever or chills. PT has recommended home with home care. REVIEW OF SYSTEMS Constitutional: No fever, no chills, no night sweats. No weight change. No weakness, fatigue or lethargy. No daytime sleepiness. EENT: No headache. No blurred vision or double vision, no loss of vision. No loss of Hearing, no ringing in the ears, no dizziness. No nasal drainage or congestion. No epistaxis. No sore throat. Lungs: Reports shortness of breath, reports cough, no sputum production. Reports wheezing. Cardiovascular: No chest pain, no lower extremity edema. No palpitations. No paroxysmal nocturnal dyspnea. No lightheadedness or dizziness. No syncopal episodes. Abdominal: No abdominal pain. No nausea, vomiting. No diarrhea. No constipation. No bloody or tarry stools.. No loss of appetite. Genitourinary: No dysuria, increased frequency, urgency. No urinary retention. Musculoskeletal: No myalgias. No muscle weakness, no gait dysfunction, no frequent falls. No back pain. No neck pain. Integumentary: No wounds, no lesions. No rash or pruritus. No unusual bruising. No change in hair or nails. Neurologic: No aphasia. No facial droop. No change in mentation. No head injury. No headache. No paralysis. No paresthesia. Psychiatric: No depression. No anxiety. Endocrine: No abnormal blood sugars. PHYSICAL EXAMINATION Gen: This is a morbidly obese male sitting in recliner and appears to be comfortable at rest. HEENT: Head is atraumatic, normocephalic. Pupils equal, round. Sclerae is anicteric. NECK: Supple. No JVD. No lymphadenopathy. No thyromegaly. LUNGS: Scattered wheezes and rhonchi throughout bilat. No intercostal retractions. +cough. HEART: Regular rate and rhythm. No murmur. ABDOMEN: Soft. Bowel sounds are present. No masses. No tenderness. EXTREMITIES: No pedal edema. No calf tenderness. Dorsalis pedis palpable bilaterally. NEUROLOGICAL: Patient is awake, alert and oriented x3. Cranial nerves 2 through 12 are grossly intact. ASSESSMENT AND PLAN 1. Acute on chronic bronchitis with bronchospasm, no pneumonia noted on CT/chest x-ray. Consult with pulmonary medicine appreciated. Continue DuoNeb treatments 4 times daily and every 4 hours as needed, Pulmicort 1 mg twice daily, doxycycline 100 mg twice daily, Diamox 250 mg daily, Solu-Medrol 60 mg IV every 6 hours, Perforomist. 2. Suspected obstructive sleep apnea. Patient has been advised for sleep study as an outpatient. 3. History of atrial flutter. Continue eliquis 5 mg twice daily. 4. Hypertension. Continue Coreg 12.5 mg at bedtime, hydrochlorothiazide 25 mg daily, Benicar 20 mg daily. 5. Hyperlipidemia. Continue Lipitor 40 mg at bedtime. 6. Diabetes mellitus type 2. Continue Levemir 60 units daily, NovoLog scale before meals and at bedtime, metformin 1000 mg twice daily. 7. Seasonal ALLERGIES. Claritin 10 mg daily, Singulair 10 mg at bedtime. 8. Suspected GERD and GI prophylaxis. Protonix 40 mg daily. 9. DVT prophylaxis. Heparin subcu. DISCHARGE PLAN Home with home care. Impression and plan of care have been directed as dictated by the signing physician. Tawnya Mir nurse practitioner acting as scribe for signing physician. Objective - Vital Signs Vital signs: Vital Signs Temp 98.4 F 05/12/20 02:00 Pulse 104 H 05/12/20 07:46 Resp 20 05/12/20 07:32 BP 99/67 05/12/20 02:00 Pulse Ox 94 L 05/12/20 02:00 Intake & Output 05/11/20 05/12/20 05/12/20 18:59 06:59 18:59 Intake Total 596 Balance 596 Intake: Oral 596 Other: Voiding Method Toilet # Voids 2 1 - Labs CBC & Chem 7: 05/11/20 05:24 05/11/20 05:24 Labs: Abnormal Lab Results - Last 24 Hours (Table) 05/11/20 05/11/20 05/11/20 Range/Units 05:24 05:24 11:39 RBC 5.78 H (4.40-5.60) X 10*6/uL Hct 53.3 H (39.6-50.0) % MCHC 31.0 L (32.0-37.0) g/dL Glucose 259 H (70-110) mg/dL POC Glucose (mg/dL) 217 H (75-99) mg/dL Total Bilirubin 1.6 H (0.2-1.2) mg/dL Total Protein 6.0 L (6.2-8.2) g/dL 05/11/20 05/11/20 05/12/20 Range/Units 16:39 19:42 00:16 RBC (4.40-5.60) X 10*6/uL Hct (39.6-50.0) % MCHC (32.0-37.0) g/dL Glucose (70-110) mg/dL POC Glucose (mg/dL) 237 H 284 H 313 H (75-99) mg/dL Total Bilirubin (0.2-1.2) mg/dL Total Protein (6.2-8.2) g/dL 05/12/20 05/12/20 Range/Units 05:02 06:59 RBC (4.40-5.60) X 10*6/uL Hct (39.6-50.0) % MCHC (32.0-37.0) g/dL Glucose (70-110) mg/dL POC Glucose (mg/dL) 263 H 282 H (75-99) mg/dL Total Bilirubin (0.2-1.2) mg/dL Total Protein (6.2-8.2) g/dL
[2020-05-12 10:31] LABS: Hemoglobin A1C 8.1 % (4.0-6.0)
[2020-05-12 11:14] LABS: Glucose,Whole Blood 288 mg/dL (75-99)
--- NOTE | 2020-05-12 12:59 | P.PN ---
Subjective Progress Note Date: 05/12/20 Principal diagnosis: Acute exacerbation of chronic bronchitis with bronchospasm 70-year-old male, who presented to the emergency department, complaining of shortness of breath and cough. He's had this problem for about a year or so. I saw him for the first time in the office back in December 2019. When I saw him, his complaint was that of recurrent episodes of bronchitis, requiring antibiotics and corticosteroids. When I saw him, I was impressed with the fact that he likely had acute bronchospasm, of unclear etiology. I thought it might relate to underlying infection. He is a lifelong nonsmoker. His pulmonary function was more consistent with restriction. He had a computed tomography scan which did not reveal any major abnormalities other than for some minor paolo gular scarring. On this admission, the patient had a chest x-ray that was normal, and a CT angiogram that was negative, for anything acute, and negative for pulmonary embolism. He does cough up occasional phlegm, with some slight yellow mucus. He seems to think that sometimes it relates to his sinuses. He does get relief with breathing treatments and corticosteroids although, the corticosteroids have caused him to gain weight. 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 Again, he is a lifelong nonsmoker. He is quite obese. In addition to the above, I did recommend a sleep evaluation for possible obstructive sleep apnea syndrome. He has a history of diabetes mellitus, hyperlipidemia, hypertension, and probable sleep apnea syndrome. He apparently was recently scheduled for sleep study but canceled it. He also tells me that he has a history of "black lung". The patient is seen today 05/12/2020 in follow-up on the regular medical floor. He is currently sitting up in a chair at the bedside. Awake and alert in no acute distress. Doing quite a bit better today compared to yesterday. Less bronchospastic. He will have a conversation without coughing. Maintaining O2 saturations in the 90s on room air. He's been afebrile. Blood glucose 288. He remains on Diamox. DuoNeb inhalations, Pulmicort and Perforomist inhalations, Singulair, IV Solu-Medrol. Empiric antibiotics in the form of doxycycline. Anticoagulated with Eliquis. Objective - Vital Signs Vital signs: Vital Signs Temp 97.4 F L 05/12/20 07:00 Pulse 100 05/12/20 11:06 Resp 20 05/12/20 07:32 BP 118/80 05/12/20 07:00 Pulse Ox 92 L 05/12/20 07:00 Intake & Output 05/11/20 05/12/20 05/12/20 18:59 06:59 18:59 Intake Total 596 Balance 596 Intake: Oral 596 Other: Voiding Method Toilet # Voids 2 1 - Exam GENERAL EXAM: Alert, morbidly obese 70-year-old gentleman, on room air comfortable in no apparent distress. HEAD: Normocephalic. EYES: Normal reaction of pupils, equal size. NOSE: Clear with pink turbinates. THROAT: There is crowding the posterior pharynx. No erythema or exudates. NECK: Short No masses, no JVD. CHEST: No chest wall deformity. LUNGS: Equal air entry with bilateral end expiratory wheeze CVS: S1 and S2 normal with no audible murmur, regular rhythm. ABDOMEN: No hepatosplenomegaly, normal bowel sounds, no guarding or rigidity. SPINE: No scoliosis or deformity SKIN: No rashes CENTRAL NERVOUS SYSTEM: No focal deficits, tone is normal in all 4 extremities. EXTREMITIES: There is 1+ peripheral edema. No clubbing, no cyanosis. Peripheral pulses are intact. - Labs CBC & Chem 7: 05/11/20 05:24 05/11/20 05:24 Labs: Abnormal Lab Results - Last 24 Hours (Table) 05/11/20 05/11/20 05/12/20 Range/Units 16:39 19:42 00:16 POC Glucose (mg/dL) 237 H 284 H 313 H (75-99) mg/dL Hemoglobin A1c (4.0-6.0) % 05/12/20 05/12/20 05/12/20 Range/Units 05:02 05:37 06:59 POC Glucose (mg/dL) 263 H 282 H (75-99) mg/dL Hemoglobin A1c 8.1 H (4.0-6.0) % 05/12/20 Range/Units 11:12 POC Glucose (mg/dL) 288 H (75-99) mg/dL Hemoglobin A1c (4.0-6.0) % Assessment and Plan Assessment: 1 Acute on chronic bronchitis with bronchospasm, possibly related to underlying asthma. No evidence of any acute process on CT angiogram including pulmonary embolism. 2 History of hyperlipidemia. 3 Probable sleep apnea syndrome. 4 History of diabetes mellitus. 5 History of hypertension. 6 Morbid obesity. Plan: The patient was seen and evaluated by Dr. Galloway Improved but not quite back to his baseline Continue the current treatment plan Increase his activity as tolerated We will continue to follow I, the cosigning physician, performed a history & physical examination of the patient. Lungs sounds with bilateral end expiratory wheeze. Maintaining good O2 saturations in the 90s on room air. I discussed the assessment and plan of care with my nurse practitioner, Carlie Sarabia. I attest to the above note as dictated by her.
[2020-05-12 17:17] LABS: Glucose,Whole Blood 274 mg/dL (75-99)
[2020-05-12 21:21] LABS: Glucose,Whole Blood 278 mg/dL (75-99)
[2020-05-12] MEDS: ATORVASTATIN 40 MG TAB PO SCH (21:39)
[2020-05-12] MEDS: MONTELUKAST 10 MG TAB PO SCH (21:39)
[2020-05-13 00:22] LABS: Glucose,Whole Blood 216 mg/dL (75-99)
[2020-05-13] MEDS ORDERED: INSULIN ASPART (NovoLOG) 100 UNIT/ML VIAL SQ ONE (00:24)
[2020-05-13] MEDS: methylPREDNISolone SOD SUCCI 125 MG/2 ML VIAL IV SCH ×3 (00:30→12:09)
[2020-05-13 07:18] LABS: Glucose,Whole Blood 259 mg/dL (75-99)
[2020-05-13] MEDS: FORMOTEROL FUMARATE 20 MCG/2 ML NEBU INHALATION SCH ×2 (07:30→20:29)
[2020-05-13] MEDS ORDERED: INSULIN ASPART (NovoLOG) 100 UNIT/ML VIAL SQ SCH (07:30)
[2020-05-13] MEDS: BUDESONIDE 1 MG/2 ML NEBU INHALATION SCH ×2 (07:30→20:29)
[2020-05-13] MEDS: IPRATROPIUM-ALBUTEROL 3 ML NEB INHALATION SCH ×4 (07:30→20:30)
[2020-05-13] MEDS: INSULIN ASPART (NovoLOG) 100 UNIT/ML VIAL SQ SCH ×6 (07:45→20:07)
[2020-05-13] MEDS: carvediloL 12.5 MG TAB PO SCH ×2 (07:46→18:14)
[2020-05-13] MEDS: PANTOPRAZOLE 40 MG TABLET PO SCH (07:48)
[2020-05-13] MEDS: INSULIN DETEMIR (LEVEMIR) 100 UNIT/ML SYR SQ SCH (08:32)
[2020-05-13] MEDS: metFORMIN 500 MG TAB PO SCH ×2 (08:32→20:07)
[2020-05-13] MEDS: acetaZOLAMIDE 250 MG TAB PO SCH (08:32)
[2020-05-13] MEDS: LORATADINE 10 MG TAB PO SCH (08:32)
[2020-05-13] MEDS: MULTIVITAMINS, THERA 1 EACH TAB PO SCH (08:33)
[2020-05-13] MEDS: hydroCHLOROthiazide 25 MG TAB PO SCH (08:33)
[2020-05-13] MEDS: LOSARTAN 50 MG TAB PO SCH (08:33)
[2020-05-13] MEDS: APIXABAN 5 MG TAB PO SCH ×2 (08:33→20:08)
[2020-05-13] MEDS: DOXYCYCLINE 100 MG CAP PO SCH ×2 (08:33→20:08)
--- NOTE | 2020-05-13 11:28 | P.PN ---
Subjective Progress Note Date: 05/13/20 HISTORY OF PRESENT ILLNESS This is a 70-year-old male patient of Dr. Lemos and Dr. Galloway with past medical history of diabetes mellitus type 2, hypertension, hyperlip idemia, suspected obstructive sleep apnea, history of atrial flutter on eliquis. He complains of cough and has been seen by Dr. Nava and placed on steroids on 2 episodes along with antibiotics. He states that he completes the steroids and the cough returns in about 2 weeks after that. He states he is having difficulty laying flat cough and choking. Patient states he was at his PCP office for a regularly scheduled appointment and his doctor found him gasping for air was unable to catch his breath and was instructed to come in the hospital for evaluation. Patient presented to [facility] emergency center and found to be afebrile, heart rate 73, respiratory rate 24, blood pressure 149/88, pulse ox 93% on room air. Chest x-ray revealed mild cardiomegaly without acute pulmonary process. CAT scan angiogram of the chest showed no pulmonary embolism. No cardial pulmonary abnormality. CBC is unremarkable. CO2 31 otherwise electrolytes and renal function normal. Blood sugar 77. Urinalysis negative for infection. Lactic acid 1.4. Troponin negative. Liver function tests within normal limits. ProBNP 225. Carotid virus PCR not detected. EKG atrial flutter. Echo cardiogram reveals EF greater than 70%, severe concentric left and clear hypertrophy, mild tricuspid regurgitation, mild pulmonary hypertension. Patient admitted to the MedSur floor and consult with pulmonary medicine requested. 05/12: Has been seen by phone or medicine and medications have been adjusted. No plan for bronchoscopy. He has been started on Solu-Medrol 60 mg IV every 6 hours. Blood sugars have been running in the 200s to low 300s and NovoLog with meals has been added. He has been afebrile, heart rate 104, blood pressure 118/80, pulse ox 92% on room air. Patient states he was able to lie flat for 3 hours last night without coughing. He starts coughing with deep inspiration. No fever or chills. PT has recommended home with home care. 05/13: Patient remains afebrile, heart rate running 102-108, blood pressure this morning was 116/78 prior to medications. Pulse ox 92-94% on room air. Sugars are running between 216 and 278. Scheduled NovoLog will be increased from 8 units to 10 units with meals. Patient states that he is getting better. He was able to sleep without coughing through the night. He is having less cough throughout the day. REVIEW OF SYSTEMS Constitutional: No fever, no chills, no night sweats. No weight change. No weakness, fatigue or lethargy. No daytime sleepiness. EENT: No headache. No blurred vision or double vision, no loss of vision. No loss of Hearing, no ringing in the ears, no dizziness. No nasal drainage or congestion. No epistaxis. No sore throat. Lungs: Reports shortness of breath, reports cough, no sputum production. Reports wheezing. Cardiovascular: No chest pain, no lower extremity edema. No palpitations. No paroxysmal nocturnal dyspnea. No lightheadedness or dizziness. No syncopal episodes. Abdominal: No abdominal pain. No nausea, vomiting. No diarrhea. No constipation. No bloody or tarry stools.. No loss of appetite. Genitourinary: No dysuria, increased frequency, urgency. No urinary retention. Musculoskeletal: No myalgias. No muscle weakness, no gait dysfunction, no freq uent falls. No back pain. No neck pain. Integumentary: No wounds, no lesions. No rash or pruritus. No unusual bruising. No change in hair or nails. Neurologic: No aphasia. No facial droop. No change in mentation. No head injury. No headache. No paralysis. No paresthesia. Psychiatric: No depression. No anxiety. Endocrine: Reported abnormal blood sugars. PHYSICAL EXAMINATION Gen: This is a morbidly obese male sitting in recliner and appears to be comfortable at rest. HEENT: Head is atraumatic, normocephalic. Pupils equal, round. Sclerae is anicteric. NECK: Supple. No JVD. No lymphadenopathy. No thyromegaly. LUNGS: Scattered wheezes and rhonchi throughout bilat. No intercostal retractions. +cough. HEART: Regular rate and rhythm. No murmur. ABDOMEN: Soft. Bowel sounds are present. No masses. No tenderness. EXTREMITIES: No pedal edema. No calf tenderness. Dorsalis pedis palpable bilaterally. NEUROLOGICAL: Patient is awake, alert and oriented x3. Cranial nerves 2 through 12 are grossly intact. ASSESSMENT AND PLAN 1. Acute on chronic bronchitis with bronchospasm, no pneumonia noted on CT/chest x-ray. Consult with pulmonary medicine appreciated. Continue DuoNeb treatments 4 times daily and every 4 hours as needed, Pulmicort 1 mg twice daily, doxycycline 100 mg twice daily, Diamox 250 mg daily, Solu-Medrol 60 mg IV every 6 hours, Perforomist. 2. Suspected obstructive sleep apnea. Patient has been advised for sleep study as an outpatient. 3. History of atrial flutter. Continue eliquis 5 mg twice daily. 4. Hypertension. Continue Coreg 12.5 mg at bedtime, hydrochlorothiazide 25 mg daily, Benicar 20 mg daily. 5. Hyperlipidemia. Continue Lipitor 40 mg at bedtime. 6. Diabetes mellitus type 2, uncontrolled with hyperglycemia secondary to steroids. Continue Levemir 60 units daily, NovoLog scheduled 10 units with meals, NovoLog scale before meals and at bedtime, metformin 1000 mg twice daily. 7. Seasonal ALLERGIES. Claritin 10 mg daily, Singulair 10 mg at bedtime. 8. Suspected GERD and GI prophylaxis. Protonix 40 mg daily. 9. DVT prophylaxis. Heparin subcu. DISCHARGE PLAN Home this weekend. Impression and plan of care have been directed as dictated by the signing physician. Tawnya Mir nurse practitioner acting as scribe for signing physician. Objective - Vital Signs Vital signs: Vital Signs Temp 97.8 F 05/13/20 07:00 Pulse 104 H 05/13/20 08:01 Resp 20 05/13/20 07:00 BP 166/103 05/13/20 07:00 Pulse Ox 92 L 05/13/20 07:00 Intake & Output 05/12/20 05/13/20 05/13/20 18:59 06:59 18:59 Intake Total 400 Balance 400 Intake: Oral 400 Other: Voiding Method Toilet # Voids 2 3 - Labs CBC & Chem 7: 05/11/20 05:24 05/11/20 05:24 Labs: Abnormal Lab Results - Last 24 Hours (Table) 05/12/20 05/12/20 05/12/20 Range/Units 05:37 11:12 17:15 POC Glucose (mg/dL) 288 H 274 H (75-99) mg/dL Hemoglobin A1c 8.1 H (4.0-6.0) % 05/12/20 05/13/20 05/13/20 Range/Units 21:20 00:21 07:17 POC Glucose (mg/dL) 278 H 216 H 259 H (75-99) mg/dL Hemoglobin A1c (4.0-6.0) %
[2020-05-13 12:09] LABS: Glucose,Whole Blood 326 mg/dL (75-99)
--- NOTE | 2020-05-13 13:31 | P.PN ---
Subjective Progress Note Date: 05/13/20 Principal diagnosis: Acute exacerbation of chronic bronchitis with bronchospasm 70-year-old male, who presented to the emergency department, complaining of shortness of breath and cough. He's had this problem for about a year or so. I saw him for the first time in the office back in December 2019. When I saw him, his complaint was that of recurrent episodes of bronchitis, requiring antibiotics and corticosteroids. When I saw him, I was impressed with the fact that he likely had acute bronchospasm, of unclear etiology. I thought it might relate to underlying infection. He is a lifelong nonsmoker. His pulmonary function was more consistent with restriction. He had a computed tomography scan which did not reveal any major abnormalities other than for some minor paolo gular scarring. On this admission, the patient had a chest x-ray that was normal, and a CT angiogram that was negative, for anything acute, and negative for pulmonary embolism. He does cough up occasional phlegm, with some slight yellow mucus. He seems to think that sometimes it relates to his sinuses. He does get relief with breathing treatments and corticosteroids although, the corticosteroids have caused him to gain weight. 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 Again, he is a lifelong nonsmoker. He is quite obese. In addition to the above, I did recommend a sleep evaluation for possible obstructive sleep apnea syndrome. He has a history of diabetes mellitus, hyperlipidemia, hypertension, and probable sleep apnea syndrome. He apparently was recently scheduled for sleep study but canceled it. He also tells me that he has a history of "black lung". The patient is seen today 05/12/2020 in follow-up on the regular medical floor. He is currently sitting up in a chair at the bedside. Awake and alert in no acute distress. Doing quite a bit better today compared to yesterday. Less bronchospastic. He will have a conversation without coughing. Maintaining O2 saturations in the 90s on room air. He's been afebrile. Blood glucose 288. He remains on Diamox. DuoNeb inhalations, Pulmicort and Perforomist inhalations, Singulair, IV Solu-Medrol. Empiric antibiotics in the form of doxycycline. Anticoagulated with Eliquis. The patient is seen today for very 2020 follow-up on the regular medical floor. He is currently sitting up in a chair at the bedside. Awake and alert in no acute distress. Continues to improve daily. With short of breath. Less edema of the lower extremities. He is having issues with elevated blood glucose levels. Currently 326. He remains on DuoNeb inhalations, Pulmicort and Perforomist inhalations, IV Solu-Medrol, Singulair. Anticoagulated with Eliquis. Empiric antibiotics in the form of doxycycline. Objective - Vital Signs Vital signs: Vital Signs Temp 97.8 F 05/13/20 07:00 Pulse 104 H 05/13/20 11:35 Resp 22 05/13/20 08:00 BP 166/103 05/13/20 07:00 Pulse Ox 92 L 05/13/20 07:00 Intake & Output 05/12/20 05/13/20 05/13/20 18:59 06:59 18:59 Intake Total 400 Balance 400 Intake: Oral 400 Other: Voiding Method Toilet # Voids 2 3 - Exam GENERAL EXAM: Alert, morbidly obese, 70-year-old gentleman, on room air, comfortable in no apparent distress. HEAD: Normocephalic. EYES: Normal reaction of pupils, equal size. NOSE: Clear with pink turbinates. THROAT: There is crowding the posterior pharynx. No erythema or exudates. NECK: Short No masses, no JVD. CHEST: No chest wall deformity. LUNGS: Equal air entry with bilateral end expiratory wheeze, diminished. CVS: S1 and S2 normal with no audible murmur, regular rhythm. ABDOMEN: No hepatosplenomegaly, normal bowel sounds, no guarding or rigidity. SPINE: No scoliosis or deformity SKIN: No rashes CENTRAL NERVOUS SYSTEM: No focal deficits, tone is normal in all 4 extremities. EXTREMITIES: There is 1+ peripheral edema. No clubbing, no cyanosis. Perip heral pulses are intact. - Labs CBC & Chem 7: 05/11/20 05:24 05/11/20 05:24 Labs: Abnormal Lab Results - Last 24 Hours (Table) 05/12/20 05/12/20 05/13/20 Range/Units 17:15 21:20 00:21 POC Glucose (mg/dL) 274 H 278 H 216 H (75-99) mg/dL 05/13/20 05/13/20 Range/Units 07:17 12:07 POC Glucose (mg/dL) 259 H 326 H (75-99) mg/dL Assessment and Plan Assessment: 1 Acute on chronic bronchitis with bronchospasm, possibly related to underlying asthma. No evidence of any acute process on CT angiogram including pulmonary embolism. 2 History of hyperlipidemia. 3 Probable sleep apnea syndromepickwickian syndrome. 4 Diabetes mellitus. 5 History of hypertension. 6 Morbid obesity. Plan: The patient was seen and evaluated by Dr. Galloway Continue the current treatment plan We'll discontinue IV Solu-Medrol Started prednisone taper at 40 mg daily 4 days Increase his activity as tolerated Cleared for discharge from the pulmonary standpoint Follow up with Dr. Galloway in our office in 1-2 weeks I, the cosigning physician, performed a history & physical examination of the patient. Lungs sounds with bilateral end expiratory wheeze. Maintaining good O2 saturations in the 90s on room air. I discussed the assessment and plan of care with my nurse practitioner, Carlie Sarabia. I attest to the above note as dictated by her.
[2020-05-13 17:37] LABS: Glucose,Whole Blood 280 mg/dL (75-99)
[2020-05-13 19:59] LABS: Glucose,Whole Blood 246 mg/dL (75-99)
[2020-05-13] MEDS: ATORVASTATIN 40 MG TAB PO SCH (20:07)
[2020-05-13] MEDS: MONTELUKAST 10 MG TAB PO SCH (20:08)
[2020-05-13] MEDS: MAGNESIUM OXIDE 400 MG TAB PO SCH (20:08)
[2020-05-14] MEDS: IPRATROPIUM-ALBUTEROL 3 ML NEB INHALATION PRN (04:51)
[2020-05-14] MEDS: BUDESONIDE 1 MG/2 ML NEBU INHALATION SCH (06:59)
[2020-05-14] MEDS: IPRATROPIUM-ALBUTEROL 3 ML NEB INHALATION SCH ×3 (07:00→15:49)
[2020-05-14] MEDS: FORMOTEROL FUMARATE 20 MCG/2 ML NEBU INHALATION SCH (07:00)
[2020-05-14 07:11] LABS: Glucose,Whole Blood 134 mg/dL (75-99)
[2020-05-14 07:17] VITALS: RESP 20; TEMP 98.1
[2020-05-14] MEDS: INSULIN ASPART (NovoLOG) 100 UNIT/ML VIAL SQ SCH ×4 (08:09→13:06)
[2020-05-14] MEDS: APIXABAN 5 MG TAB PO SCH (08:20)
[2020-05-14] MEDS: metFORMIN 500 MG TAB PO SCH (08:20)
[2020-05-14] MEDS: carvediloL 12.5 MG TAB PO SCH (08:20)
[2020-05-14] MEDS: hydroCHLOROthiazide 25 MG TAB PO SCH (08:21)
[2020-05-14] MEDS: acetaZOLAMIDE 250 MG TAB PO SCH (08:21)
[2020-05-14] MEDS: PANTOPRAZOLE 40 MG TABLET PO SCH (08:21)
[2020-05-14] MEDS: DOXYCYCLINE 100 MG CAP PO SCH (08:21)
[2020-05-14] MEDS: LOSARTAN 50 MG TAB PO SCH (08:21)
[2020-05-14] MEDS: MULTIVITAMINS, THERA 1 EACH TAB PO SCH (08:21)
[2020-05-14] MEDS: LORATADINE 10 MG TAB PO SCH (08:21)
[2020-05-14] MEDS: INSULIN DETEMIR (LEVEMIR) 100 UNIT/ML SYR SQ SCH (08:37)
[2020-05-14] MEDS ORDERED: predniSONE 20 MG TAB PO SCH (09:00)
--- NOTE | 2020-05-14 11:11 | P.DS ---
Providers Date of admission: 05/11/20 09:43 Expected date of discharge: 05/14/20 Attending physician: Salbador Ward Consults: 05/10/20 20:26 Consult Physician Routine Consulting Provider: Thony Galloway Consult Reason/Comments: established pt, sob, cyanosis Do you want consulting provider notified?: Yes, Notify in am Primary care physician: Julio Canelo [facility] Course: HISTORY OF PRESENT ILLNESS This is a 70-year-old male patient of Dr. Lemos and Dr. Galloway with past medical history of diabetes mellitus type 2, hypertension, hyperli pidemia, suspected obstructive sleep apnea, history of atrial flutter on eliquis. He complains of cough and has been seen by Dr. Nava and placed on steroids on 2 episodes along with antibiotics. He states that he completes the steroids and the cough returns in about 2 weeks after that. He states he is having difficulty laying flat cough and choking. Patient states he was at his PCP office for a regularly scheduled appointment and his doctor found him gasping for air was unable to catch his breath and was instructed to come in the hospital for evaluation. Patient presented to [facility] emergency center and found to be afebrile, heart rate 73, respiratory rate 24, blood pressure 149/88, pulse ox 93% on room air. Chest x-ray revealed mild cardiomegaly without acute pulmonary process. CAT scan angiogram of the chest showed no pulmonary embolism. No cardial pulmonary abnormality. CBC is unremarkable. CO2 31 otherwise electrolytes and renal function normal. Blood sugar 77. Urinalysis negative for infection. Lactic acid 1.4. Troponin negative. Liver function tests within normal limits. ProBNP 225. Carotid virus PCR not detected. EKG atrial flutter. Ech ocardiogram reveals EF greater than 70%, severe concentric left and clear hypertrophy, mild tricuspid regurgitation, mild pulmonary hypertension. Patient admitted to the MedSurg floor and consult with pulmonary medicine requested. 05/12: Has been seen by phone or medicine and medications have been adjusted. No plan for bronchoscopy. He has been started on Solu-Medrol 60 mg IV every 6 hours. Blood sugars have been running in the 200s to low 300s and NovoLog with meals has been added. He has been afebrile, heart rate 104, blood pressure 118/80, pulse ox 92% on room air. Patient states he was able to lie flat for 3 hours last night without coughing. He starts coughing with deep inspiration. No fever or chills. PT has recommended home with home care. 05/13: Patient remains afebrile, heart rate running 102-108, blood pressure this morning was 116/78 prior to medications. Pulse ox 92-94% on room air. Sugars are running between 216 and 278. Scheduled NovoLog will be increased from 8 uni ts to 10 units with meals. Patient states that he is getting better. He was able to sleep without coughing through the night. He is having less cough throughout the day. 05/14: Patient states that he continues to progress and feel better. He is able to talk without coughing. He states he was also able to sleep during the night. He states he had 2 episodes where he was drinking water and felt that his airway blocked off. He is able to eat without any difficulty. Patient drank tea at the bedside to demonstrate and he was able to swallow without any difficulties. No coughing or aspiration was noted. Discussed in detail the patient may benefit from ALLERGY testing as well as sleep study as an outpatient. He has been afebrile, heart rate 82, blood pressure 113/69, pulse ox 89% on room air. Patient was cleared for discharge yesterday by pulmonary medicine. He was transitioned from IV Solu-Medrol to prednisone. Patient will be discharged home today in stable condition. ASSESSMENT AND PLAN 1. Acute on chronic bronchitis with bronchospasm, no pneumonia noted on CT/chest x-ray. 2. Suspected obstructive sleep apnea. 3. History of atrial flutter. 4. Hypertension. 5. Hyperlipidemia. 6. Diabetes mellitus type 2, uncontrolled with hyperglycemia secondary to steroids. 7. Seasonal ALLERGIES. 8. Suspected GERD. DISCHARGE PLAN Home. Impression and plan of care have been directed as dictated by the signing physician. Tawnya Mir nurse practitioner acting as scribe for signing physician. Plan - Discharge Summary New Discharge Prescriptions: New Ipratropium-Albuterol Nebulize [Duoneb 0.5 mg-3 mg/3 ml Soln] 3 ml INHALATION QID #120 neb predniSONE 0 mg PO DIRECTED #30 tab Pantoprazole [Protonix] 40 mg PO AC-BRKFST #30 tablet. Montelukast [Singulair] 10 mg PO HS #30 tab Doxycycline [Vibramycin] 100 mg PO BID #10 cap Budesonide [Pulmicort] 1 mg INHALATION BID #60 neb Continue Atorvastatin [Lipitor] 40 mg PO HS Cetirizine HCl [Zyrtec] 10 mg PO DAILY Multivitamins, Thera [Multivitamin (formulary)] 1 tab PO DAILY Magnesium Oxide [Funk] 500 mg PO HS Cyclobenzaprine [Flexeril] 10 mg PO TID PRN PRN Reason: Pain traMADol HCL [Ultram] 50 mg PO DAILY PRN PRN Reason: Pain Olmesartan Medoxomil [Benicar] 20 mg PO DAILY Insulin Glargine,Hum.rec.anlog [Toujeo Solostar] 80 unit SQ DAILY INSULIN ASPART (NovoLOG) [NovoLOG (formulary)] 5 - 15 unit SQ TID-W/MEALS hydroCHLOROthiazide 25 mg PO DAILY metFORMIN HCL [Glucophage] 1,000 mg PO BID Apixaban [Eliquis] 5 mg PO DAILY Carvedilol [Coreg] 12.5 mg PO BID-W/MEALS Exenatide Microspheres [Bydureon Pen] 2 mg SQ MO Albuterol Nebulized [Ventolin Nebulized] 2.5 mg INHALATION RT-QID PRN PRN Reason: Shortness Of Breath Potassium Gluconate 99 mg PO HS Discharge Medication List Atorvastatin [Lipitor] 40 mg PO HS 07/26/13 [History] Cetirizine HCl [Zyrtec] 10 mg PO DAILY 07/26/13 [History] Albuterol Nebulized [Ventolin Nebulized] 2.5 mg INHALATION RT-QID PRN 05/10/20 [History] Apixaban [Eliquis] 5 mg PO DAILY 05/10/20 [History] Carvedilol [Coreg] 12.5 mg PO BID-W/MEALS 05/10/20 [History] Cyclobenzaprine [Flexeril] 10 mg PO TID PRN 05/10/20 [History] Exenatide Microspheres [Bydureon Pen] 2 mg SQ MO 05/10/20 [History] INSULIN ASPART (NovoLOG) [NovoLOG (formulary)] 5 - 15 unit SQ TID-W/MEALS 05/10/20 [History] Insulin Glargine,Hum.rec.anlog [Toujeo Solostar] 80 unit SQ DAILY 05/10/20 [History] Magnesium Oxide [Funk] 500 mg PO HS 05/10/20 [History] Multivitamins, Thera [Multivitamin (formulary)] 1 tab PO DAILY 05/10/20 [History] Olmesartan Medoxomil [Benicar] 20 mg PO DAILY 05/10/20 [History] Potassium Gluconate 99 mg PO HS 05/10/20 [History] hydroCHLOROthiazide 25 mg PO DAILY 05/10/20 [History] metFORMIN HCL [Glucophage] 1,000 mg PO BID 05/10/20 [History] traMADol HCL [Ultram] 50 mg PO DAILY PRN 05/10/20 [History] Ipratropium-Albuterol Nebulize [Duoneb 0.5 mg-3 mg/3 ml Soln] 3 ml INHALATION QID #120 neb 05/13/20 [Rx] Budesonide [Pulmicort] 1 mg INHALATION BID #60 neb 05/14/20 [Rx] Doxycycline [Vibramycin] 100 mg PO BID #10 cap 05/14/20 [Rx] Montelukast [Singulair] 10 mg PO HS #30 tab 05/14/20 [Rx] Pantoprazole [Protonix] 40 mg PO AC-BRKFST #30 tablet. 05/14/20 [Rx] predniSONE 0 mg PO DIRECTED #30 tab 05/14/20 [Rx] Follow up Appointment(s)/Referral(s): [facility] [NON-STAFF] - As Needed (Supplier of nebulizer. ) Thony Galloway DO [Family Provider] - 1 Week Julio Lemos DO [Primary Care Provider] - 1 Week Activity/Diet/Wound Care/Special Instructions: [facility] can be reached at and a fax number of . Discharge Disposition: HOME SELF-CARE
--- NOTE | 2020-05-14 11:32 | P.PN ---
Subjective Progress Note Date: 05/14/20 Principal diagnosis: Acute exacerbation of chronic bronchitis with bronchospasm 70-year-old male, who presented to the emergency department, complaining of shortness of breath and cough. He's had this problem for about a year or so. I saw him for the first time in the office back in December 2019. When I saw him, his complaint was that of recurrent episodes of bronchitis, requiring antibiotics and corticosteroids. When I saw him, I was impressed with the fact that he likely had acute bronchospasm, of unclear etiology. I thought it might relate to underlying infection. He is a lifelong nonsmoker. His pulmonary function was more consistent with restriction. He had a computed tomography scan which did not reveal any major abnormalities other than for some minor paolo gular scarring. On this admission, the patient had a chest x-ray that was normal, and a CT angiogram that was negative, for anything acute, and negative for pulmonary embolism. He does cough up occasional phlegm, with some slight yellow mucus. He seems to think that sometimes it relates to his sinuses. He does get relief with breathing treatments and corticosteroids although, the corticosteroids have caused him to gain weight. 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 Again, he is a lifelong nonsmoker. He is quite obese. In addition to the above, I did recommend a sleep evaluation for possible obstructive sleep apnea syndrome. He has a history of diabetes mellitus, hyperlipidemia, hypertension, and probable sleep apnea syndrome. He apparently was recently scheduled for sleep study but canceled it. He also tells me that he has a history of "black lung". The patient is seen today 05/12/2020 in follow-up on the regular medical floor. He is currently sitting up in a chair at the bedside. Awake and alert in no acute distress. Doing quite a bit better today compared to yesterday. Less bronchospastic. He will have a conversation without coughing. Maintaining O2 saturations in the 90s on room air. He's been afebrile. Blood glucose 288. He remains on Diamox. DuoNeb inhalations, Pulmicort and Perforomist inhalations, Singulair, IV Solu-Medrol. Empiric antibiotics in the form of doxycycline. Anticoagulated with Eliquis. The patient is seen today for very 26 2020 follow-up on the regular medical floor. He is currently sitting up in a chair at the bedside. Awake and alert in no acute distress. Continues to improve daily. With short of breath. Less edema of the lower extremities. He is having issues with elevated blood glucose levels. Currently 326. He remains on DuoNeb inhalations, Pulmicort and Perforomist inhalations, IV Solu-Medrol, Singulair. Anticoagulated with Eliquis. Empiric antibiotics in the form of doxycycline. The patient is seen today 05/14/2020 follow-up on the regular medical floor. Awake and alert in no acute distress. Up in a chair at the bedside. Breathing is pretty much back to his baseline. O2 saturation 89% on room air. He remains on DuoNeb inhalations, Pulmicort and Perforomist inhalations, IV Solu-Medrol, Singulair. Anticoagulated with Eliquis. Empiric antibiotics in the form of doxycycline. Objective - Vital Signs Vital signs: Vital Signs Temp 98.1 F 05/14/20 07:00 Pulse 94 05/14/20 11:16 Resp 20 05/14/20 07:00 BP 113/69 05/14/20 07:00 Pulse Ox 89 L 05/14/20 07:00 Intake & Output 05/13/20 05/14/20 05/14/20 18:59 06:59 18:59 Intake Total 240 300 Balance 240 300 Intake: Oral 240 300 Other: Voiding Method Toilet Toilet # Voids 2 - Exam GENERAL EXAM: Alert, morbidly obese, 70-year-old gentleman, on room air, comfortable in no apparent distress. HEAD: Normocephalic. EYES: Normal reaction of pupils, equal size. NOSE: Clear with pink turbinates. THROAT: There is crowding the posterior pharynx. No erythema or exudates. NECK: Short No masses, no JVD. CHEST: No chest wall deformity. LUNGS: Equal air entry with bilateral end expiratory wheeze, diminished. CVS: S1 and S2 normal with no audible murmur, regular rhythm. ABDOMEN: No hepatosplenomegaly, normal bowel sounds, no guarding or rigidity. SPINE: No scoliosis or deformity SKIN: No rashes CENTRAL NERVOUS SYSTEM: No focal deficits, tone is normal in all 4 extremities. EXTREMITIES: There is 1+ peripheral edema. No clubbing, no cyanosis. Peripheral pulses are intact. - Labs CBC & Chem 7: 05/11/20 05:24 05/11/20 05:24 Labs: Abnormal Lab Results - Last 24 Hours (Table) 05/13/20 05/13/20 05/13/20 Range/Units 12:07 17:36 19:57 POC Glucose (mg/dL) 326 H 280 H 246 H (75-99) mg/dL 05/14/20 Range/Units 07:09 POC Glucose (mg/dL) 134 H (75-99) mg/dL Assessment and Plan Assessment: 1 Acute on chronic bronchitis with bronchospasm, possibly related to underlying asthma. No evidence of any acute process on CT angiogram including pulmonary embolism. 2 History of hyperlipidemia. 3 Probable sleep apnea syndromepickwickian syndrome. 4 Diabetes mellitus. 5 History of hypertension. 6 Morbid obesity. Plan: The patient was seen and evaluated by Dr. Galloway Continue the current treatment plan Cleared for discharge from the pulmonary standpoint Follow up with Dr. Galloway in our office in 1-2 weeks I, the cosigning physician, performed a history & physical examination of the patient. Lungs sounds with bilateral end expiratory wheeze. Maintaining good O2 saturations in the 90s on room air. I discussed the assessment and plan of care with my nurse practitioner, Carlie Sarabia. I attest to the above note as dictated by her.
[2020-05-14 11:57] LABS: Glucose,Whole Blood 233 mg/dL (75-99)
[2020-05-14] MEDS ORDERED: INSULIN DETEMIR (LEVEMIR) 100 UNIT/ML SYR SQ SCH (14:34)
[2020-05-14 15:27] VITALS: BP 111/72
[2020-05-14 16:01] VITALS: PULSE 76
[2020-05-14 17:17] LABS: Glucose,Whole Blood 139 mg/dL (75-99)
[2020-05-16] MEDS ORDERED: EXENATIDE MICROSPHERES 2 MG/0.65 ML SQ SCH (09:00)
== END 2020-05-14 17:37 | disposition home or self-care (01) | DRG 202 ==
LOC: EC 12:43 → 6NMEDSUR 20:26 → OBSVTOIN 05-11 09:43
PROVIDERS: ADMIT Internal Medicine Geriatric Medicine; ATTEND Internal Medicine Geriatric Medicine
DX: J20.9 Acute bronchitis, unspecified (principal); J44.0 Chronic obstructive pulmonary disease with (acute) lower respiratory infection; J44.1 Chronic obstructive pulmonary disease with (acute) exacerbation; I48.92 Unspecified atrial flutter; J96.11 Chronic respiratory failure with hypoxia; E11.65 Type 2 diabetes mellitus with hyperglycemia; Z79.4 Long term (current) use of insulin; I10 Essential (primary) hypertension; E78.5 Hyperlipidemia, unspecified; G47.33 Obstructive sleep apnea (adult) (pediatric); Z79.01 Long term (current) use of anticoagulants; I27.20 Pulmonary hypertension, unspecified; J30.2 Other seasonal allergic rhinitis; K21.9 Gastro-esophageal reflux disease without esophagitis; Z79.52 Long term (current) use of systemic steroids; E66.01 Morbid (severe) obesity due to excess calories; J60 Coalworker's pneumoconiosis; T38.0X5A Adverse effect of glucocorticoids and synthetic analogues, initial encounter; Z96.653 Presence of artificial knee joint, bilateral; Z96.612 Presence of left artificial shoulder joint
CPT/HCPCS: 36415; 71046; 71275; 80053; 81003; 83036; 83605; 83880; 84484; 85025; 85027; 85610; 85730; 87635; 93005; 93306; 94640; 94760; 99285

== ENCOUNTER → 2020-08-24 | Outpatient (CLI) | payer MEDICARE ==
[2020-08-24 08:41] LABS: ABG Base Excess 13.4 mmol/L; ABG HCO3 38 mmol/L (21-25); ABG PCO2 56 mmHg (35-45); ABG PH 7.44 (7.35-7.45); ABG PO2 66 mmHg (83-108); ABG TCO2 39 mmol/L (19-24); Allen Test Performed? Yes
== END | disposition home or self-care (01) ==
LOC: LABWHC1 08:11
PROVIDERS: ATTEND Internal Medicine Critical Care Medicine
DX: E66.2 Morbid (severe) obesity with alveolar hypoventilation (principal)
CPT/HCPCS: 36600; 82805

== ENCOUNTER 2020-09-01 11:34 | Inpatient (IN) | payer MEDICARE ==
[2020-09-01] MEDS ORDERED: FUROSEMIDE 10 MG/ML 4 ML VIAL IV STA (12:38)
--- NOTE | 2020-09-01 12:42 | ED ---
SOB HPI - General Chief Complaint: Shortness of Breath Stated Complaint: sob Time Seen by Provider: 09/01/20 12:16 Source: patient, family (White), RN notes reviewed Mode of arrival: ambulatory Limitations: physical limitation - History of Present Illness Initial Comments: 70-year-old hard of hearing white male presents to the emergency room with shortness of breath it's been worsening since April. Patient has been seeing Dr. Lemos and Dr. Galloway over the past week and was told yesterday by Dr. Galloway to come to the hospital for admission. Patient has a history of atrial fibrillation, COPD, diabetes, hypertension, and black lung disease. Patient's states that he had a sleep study done and needs CPAP however patient does not use a CPAP machine. Patient recently finished a dose of doxycycline on August 25 for change in sputum with his COPD. Patient states he's gained 47 pounds over the past couple of months and has noticed increased swelling in his bilateral lower extremities. Patient denies any chest pain, nausea vomiting or fevers. states that Dr. Galloway wants patient admitted for IV lasix. MD Complaint: shortness of breath, cough -: month(s) (4 /2) Severity scale (1-10): 0 Associated Symptoms: cough, orthopnea Treatments Prior to Arrival: other (Finished antibiotics August 25) - Related Data Home Medications Medication Instructions Recorded Confirmed Atorvastatin [Lipitor] 40 mg PO HS 07/26/13 09/01/20 Cetirizine HCl [Zyrtec] 10 mg PO DAILY 07/26/13 09/01/20 Apixaban [Eliquis] 5 mg PO BID 05/10/20 09/01/20 Carvedilol [Coreg] 12.5 mg PO BID-W/MEALS 05/10/20 09/01/20 Exenatide Microspheres [Bydureon 2 mg SQ TH 05/10/20 09/01/20 Pen] INSULIN ASPART (NovoLOG) [NovoLOG See Protocol SQ TID-W/MEALS 05/10/20 09/01/20 (formulary)] Insulin Glargine,Hum.rec.anlog 80 unit SQ DAILY 05/10/20 09/01/20 [Paulino Hicks] Magnesium Oxide [Funk] 500 mg PO HS 05/10/20 09/01/20 Multivitamins, Thera [Multivitamin 1 tab PO DAILY 05/10/20 09/01/20 (formulary)] Olmesartan Medoxomil [Benicar] 20 mg PO DAILY 05/10/20 09/01/20 Potassium Gluconate 99 mg PO HS 05/10/20 09/01/20 metFORMIN HCL [Glucophage] 1,000 mg PO BID 05/10/20 09/01/20 Budesonide/Formoterol Fumarate 2 puff INHALATION RT-BID 09/01/20 09/01/20 [Symbicort 160-4.5 Mcg Inhaler] Dextromethorphan Polistirex 10 ml PO DAILY PRN 09/01/20 09/01/20 [Delsym] Dm/Acetaminophen/Doxylamine [Vicks 30 ml PO HS 09/01/20 09/01/20 Nyquil Cold-Flu Liquid] Ipratropium-Albuterol Nebulize 3 ml INHALATION RT-QID 09/01/20 09/01/20 [Duoneb 0.5 mg-3 mg/3 ml Soln] hydroCHLOROthiazide [Hydrodiuril] 50 mg PO DAILY 09/01/20 09/01/20 predniSONE 5 mg PO DAILY 09/01/20 09/01/20 Allergies Allergy/AdvReac Type Severity Reaction Status Date / Time adhesive Allergy Rash/Hives Verified 09/01/20 13:01 Penicillins Allergy Rash/Hives Verified 09/01/20 13:01 Review of Systems ROS Statement: Those systems with pertinent positive or pertinent negative responses have been documented in the HPI. ROS Other: All systems not noted in ROS Statement are negative. Past Medical History Past Medical History: Atrial Flutter, COPD, Diabetes Mellitus, Hyperlipidemia, Hypertension, Musculoskeletal Disorder, Pneumonia, Prostate Disorder, Sleep Apnea/CPAP/BIPAP Additional Past Medical History / Comment(s): HX OF BLACK LUNG, home oxygen History of Any Multi-Drug Resistant Organisms: None Reported Past Surgical History: Back Surgery, Hernia Repair, Joint Replacement, Tonsillectomy Additional Past Surgical History / Comment(s): JACY KNEE REPLACEMENT, LEFT SHOULDER "BALL" REPLACED, right shoulder reverse arthroplasty in September 2019 at [facility] Additional Past Anesthesia/Blood Transfusion Reaction / Comment(s): STATES HAS AWAKENED DURING SEVERAL SX INCLUDING JOINT REPLACEMENT Past Psychological History: No Psychological Hx Reported Smoking Status: Never smoker Past Alcohol Use History: None Reported Past Drug Use History: None Reported - Past Family History Mother Family Medical History: CVA/TIA Father Additional Family Medical History / Comment(s): etoh General Exam Limitations: no limitations ([place] VIEUX), physical limitation General appearance: alert, in no apparent distress Head exam: Present: atraumatic, normocephalic, normal inspection Eye exam: Present: normal appearance, PERRL, EOMI. Absent: scleral icterus, conjunctival injection, periorbital swelling Pupils: Present: normal accommodation ENT exam: Present: normal exam, normal oropharynx, mucous membranes moist Neck exam: Present: normal inspection, full ROM. Absent: tenderness, meningismus, lymphadenopathy Respiratory exam: Present: rales, decreased breath sounds. Absent: respiratory distress (Basis), wheezes, stridor, chest wall tenderness, accessory muscle use Cardiovascular Exam: Present: regular rate, irregular rhythm (Atrial flutter), normal heart sounds. Absent: systolic murmur, diastolic murmur, rubs, gallop, clicks GI/Abdominal exam: Present: soft, distended, normal bowel sounds. Absent: tenderness, guarding, rebound, rigid Rectal exam: Present: deferred Extremities exam: Present: pedal edema (3+ bilateral lower extremity edema). Absent: tenderness, calf tenderness Back exam: Present: normal inspection. Absent: tenderness, CVA tenderness (R), CVA tenderness (L), muscle spasm, paraspinal tenderness Neurological exam: Present: alert, oriented X3, CN II-XII intact Psychiatric exam: Present: normal affect, normal mood Skin exam: Present: warm, dry, intact, normal color. Absent: rash, cyanosis, diaphoretic, erythema, petechiae, pallor, mottled Course Vital Signs 09/01/20 09/01/20 11:49 14:05 Temperature 98.6 F 97.6 F Pulse Rate 72 72 Respiratory 20 18 Rate Blood Pressure 135/70 139/88 O2 Sat by Pulse 95 94 L Oximetry Medical Decision Making - Medical Decision Making 70-year-old morbidly obese male presents to the emergency room with shortness of breath since April. Patient states that he finished antibiotic doxycycline August 25. Was referred to the emergency room by Dr. Galloway yesterday for increasing shortness of breath since April bilateral lower extremity edema. Troponin is negative at 0.012, EKG shows atrial flutter with no significant ch anges compared to April 2020. BNP is 288, WBC count is 7.4, potassium is 3.9 make is 1.9, hemoglobin and hematocrit 15 and 49 consecutively. Chest x-ray shows venous congestion correlates clinically with patient's fluid overload. Patient was given Lasix 40 mg IV and will be admitted for exacerbation of congestive heart failure. Case discussed with Dr. Sanchez and will admit patient to Dr. Cabral with Dr. Galloway on consult. - Lab Data Result diagrams: 09/01/20 12:52 09/01/20 12:52 Lab Results 09/01/20 09/01/20 09/01/20 Range/Units 12:52 12:52 12:52 WBC 7.4 (3.8-10.6) k/uL RBC 5.44 (4.30-5.90) m/uL Hgb 15.4 (13.0-17.5) gm/dL Hct 49.3 (39.0-53.0) % MCV 90.7 (80.0-100.0) fL MCH 28.4 (25.0-35.0) pg MCHC 31.3 (31.0-37.0) g/dL RDW 14.3 (11.5-15.5) % Plt Count 204 (150-450) k/uL MPV 7.4 Neutrophils % 70 % Lymphocytes % 18 % Monocytes % 8 % Eosinophils % 2 % Basophils % 0 % Neutrophils # 5.2 (1.3-7.7) k/uL Lymphocytes # 1.3 (1.0-4.8) k/uL Monocytes # 0.6 (0-1.0) k/uL Eosinophils # 0.2 (0-0.7) k/uL Basophils # 0.0 (0-0.2) k/uL Hypochromasia Slight PT 10.1 (9.0-12.0) sec INR 0.9 (<1.2) APTT 23.9 (22.0-30.0) sec Sodium 139 (137-145) mmol/L Potassium 3.9 (3.5-5.1) mmol/L Chloride 98 (98-107) mmol/L Carbon Dioxide 37 H (22-30) mmol/L Anion Gap 4 mmol/L BUN 14 (9-20) mg/dL Creatinine 0.70 (0.66-1.25) mg/dL Est GFR (CKD-EPI)AfAm >90 (>60 ml/min/1.73 sqM) Est GFR (CKD-EPI)NonAf >90 (>60 ml/min/1.73 sqM) Glucose 141 H (74-99) mg/dL Calcium 9.4 (8.4-10.2) mg/dL Magnesium 1.9 (1.6-2.3) mg/dL Total Bilirubin 1.9 H (0.2-1.3) mg/dL AST 29 (17-59) U/L ALT 29 (4-49) U/L Alkaline Phosphatase 72 (38-126) U/L Troponin I (0.000-0.034) ng/mL NT-Pro-B Natriuret Pep pg/mL Total Protein 6.6 (6.3-8.2) g/dL Albumin 4.3 (3.5-5.0) g/dL 09/01/20 09/01/20 Range/Units 12:52 12:52 WBC (3.8-10.6) k/uL RBC (4.30-5.90) m/uL Hgb (13.0-17.5) gm/dL Hct (39.0-53.0) % MCV (80.0-100.0) fL MCH (25.0-35.0) pg MCHC (31.0-37.0) g/dL RDW (11.5-15.5) % Plt Count (150-450) k/uL MPV Neutrophils % % Lymphocytes % % Monocytes % % Eosinophils % % Basophils % % Neutrophils # (1.3-7.7) k/uL Lymphocytes # (1.0-4.8) k/uL Monocytes # (0-1.0) k/uL Eosinophils # (0-0.7) k/uL Basophils # (0-0.2) k/uL Hypochromasia PT (9.0-12.0) sec INR (<1.2) APTT (22.0-30.0) sec Sodium (137-145) mmol/L Potassium (3.5-5.1) mmol/L Chloride (98-107) mmol/L Carbon Dioxide (22-30) mmol/L Anion Gap mmol/L BUN (9-20) mg/dL Creatinine (0.66-1.25) mg/dL Est GFR (CKD-EPI)AfAm (>60 ml/min/1.73 sqM) Est GFR (CKD-EPI)NonAf (>60 ml/min/1.73 sqM) Glucose (74-99) mg/dL Calcium (8.4-10.2) mg/dL Magnesium (1.6-2.3) mg/dL Total Bilirubin (0.2-1.3) mg/dL AST (17-59) U/L ALT (4-49) U/L Alkaline Phosphatase (38-126) U/L Troponin I <0.012 (0.000-0.034) ng/mL NT-Pro-B Natriuret Pep 288 pg/mL Total Protein (6.3-8.2) g/dL Albumin (3.5-5.0) g/dL - EKG Data Rate: normal (Atrial flutter with Ventricular rate 75, QRS of 0.114, QTC 0.466) When compared to previous EKG there are: no significant change (05/10/20) Disposition Clinical Impression: Fluid overload, unspecified, Pulmonary venous congestion Disposition: ADMITTED IP TO THIS HOSP Condition: Fair Is patient prescribed a controlled substance at d/c from ED?: No Referrals: Julio Lemos DO [Primary Care Provider] - 1-2 days Decision Date: 09/01/20 Decision Time: 14:52
[2020-09-01 13:21] LABS: Basophils % (A) 0 %; Eosinophils # (A) 0.2 k/uL (0-0.7); Eosinophils % (A) 2 %; HCT 49.3 % (39.0-53.0); HGB 15.4 gm/dL (13.0-17.5); Hypochromasia Slight; Lymphocytes # (A) 1.3 k/uL (1.0-4.8); Lymphocytes % (A) 18 %; MCH 28.4 pg (25.0-35.0); MCHC 31.3 g/dL (31.0-37.0); MCV 90.7 fL (80.0-100.0); Mean Platelet Volume 7.4; Monocytes # (A) 0.6 k/uL (0-1.0); Monocytes % (A) 8 %; Neutrophils # (A) 5.2 k/uL (1.3-7.7); Neutrophils % (A) 70 %; Platelet Count 204 k/uL (150-450); RBC 5.44 m/uL (4.30-5.90); RDW 14.3 % (11.5-15.5); WBC 7.4 k/uL (3.8-10.6)
--- NOTE | 2020-09-01 13:27 | XR ---
EXAMINATION TYPE: XR chest 2V DATE OF EXAM: 09/01/2020 COMPARISON: 05/10/2020 TECHNIQUE: PA and lateral views submitted. HISTORY: Difficulty breathing FINDINGS: The lungs are clear and there is no pneumothorax, pleural effusion, or focal pneumonia. Postsurgica l change involving the shoulders. Heart enlarged and there is a diffuse interstitial pattern. IMPRESSION: 1. Correlate for venous congestion or interstitial pneumonia.
[2020-09-01 13:33] LABS: ALT 29 U/L (4-49); AST 29 U/L (17-59); African American GFR (CKD) >90 (>60 ml/min/1.73 sqM); Albumin 4.3 g/dL (3.5-5.0); Alkaline Phosphatase 72 U/L (38-126); Anion Gap 4 mmol/L; Blood Urea Nitrogen 14 mg/dL (9-20); Calcium 9.4 mg/dL (8.4-10.2); Carbon Dioxide 37 mmol/L (22-30); Chloride 98 mmol/L (98-107); Glucose 141 mg/dL (74-99); Magnesium 1.9 mg/dL (1.6-2.3); Non-African American GFR(CKD) >90 (>60 ml/min/1.73 sqM); Potassium 3.9 mmol/L (3.5-5.1); Sodium 139 mmol/L (137-145); Total Bilirubin 1.9 mg/dL (0.2-1.3); Total Protein 6.6 g/dL (6.3-8.2)
[2020-09-01 13:35] LABS: INR 0.9 (<1.2); Partial Thromboplastin Time 23.9 sec (22.0-30.0); Prothrombin Time 10.1 sec (9.0-12.0)
[2020-09-01] MEDS ORDERED: NALOXONE 0.4 MG/ML 1 ML VIAL IV PRN (14:49)
[2020-09-01 16:57] LABS: Glucose,Whole Blood 110 mg/dL (75-99)
[2020-09-01] MEDS: FUROSEMIDE 10 MG/ML 4 ML VIAL IV SCH ×2 (17:46→20:56)
[2020-09-01 20:56] LABS: Glucose,Whole Blood 157 mg/dL (75-99)
[2020-09-01] MEDS: carvediloL 12.5 MG TAB PO SCH (20:56)
[2020-09-01] MEDS: metFORMIN 500 MG TAB PO SCH (20:56)
[2020-09-01] MEDS: ATORVASTATIN 40 MG TAB PO SCH (20:56)
[2020-09-01] MEDS: APIXABAN 5 MG TAB PO SCH (20:56)
[2020-09-01] MEDS: INSULIN ASPART (NovoLOG) 100 UNIT/ML VIAL SQ SCH (20:57)
[2020-09-02] MEDS ORDERED: IPRATROPIUM-ALBUTEROL 3 ML NEB INHALATION PRN (02:39)
[2020-09-02 06:16] LABS: Glucose,Whole Blood 109 mg/dL (75-99)
[2020-09-02] MEDS: INSULIN ASPART (NovoLOG) 100 UNIT/ML VIAL SQ SCH ×4 (06:17→20:42)
[2020-09-02] MEDS: IPRATROPIUM-ALBUTEROL 3 ML NEB INHALATION SCH ×4 (07:37→20:08)
[2020-09-02] MEDS: FUROSEMIDE 10 MG/ML 4 ML VIAL IV SCH ×3 (08:31→23:30)
[2020-09-02] MEDS: metFORMIN 500 MG TAB PO SCH ×2 (08:31→20:39)
[2020-09-02] MEDS: APIXABAN 5 MG TAB PO SCH ×2 (08:31→20:39)
[2020-09-02] MEDS: carvediloL 12.5 MG TAB PO SCH ×2 (08:31→16:13)
--- NOTE | 2020-09-02 10:21 | P.CRDCN ---
History of Present Illness History of present illness: HISTORY OF PRESENTING ILLNESS This is a pleasant 70-year-old male past medical history significant for chronic persistent atrial fibrillation on long-term anticoagulation, sleep apnea, hypertension, dyslipidemia, diabetes mellitus and morbid obesity. He follows in the office with Dr. Sapp. We have been asked to see in consultation for heart failure. Continued to the hospital with symptoms of worsening shortness of breath. He states this is been going on for essentially the previous one year. He states with minimal activity he becomes short of breath. He can no longer golf and walk the course that he used to due to exertional shortness of breath. He is unable to perform his activities of daily living without having to take frequent breaks. He states when he starts getting short of breath he starts coughing and he cannot catch his breath. He has followed with the deputy chief executive and states over the course of the previous year he has been tried on many courses of antibiotics and steroids which to seem to help but the relief only lasts for about 2 weeks and then was returned. The last time he saw Dr. Sapp in the office was October 2019 and at that time he was recommended to undergo a EVA cardioversion. The patient states he has been unable to make it back to the office due to his symptoms of shortness of breath. On admission here to the hospital today he underwent an EKG which revealed incomplete right bundle branch block with underlying atrial flutter with controlled rate. Chest x-ray reveals venous congestion. Telemetry tracings reveal typical atrial flutter with controlled ventricular rates. Laboratory data reviewed, CBC unremarkable, sodium 139, potassium 3.9, creatinine 0.7, magnesium 1.9, cardiac enzymes negative 1 and an T proBNP 288. Current daily cardiac medications include Eliquis 5 mg twice a day, atorvastatin 40 mg daily, Coreg 12.5 mg twice a day and hydrochlorothiazide 50 mg daily. Most recent echocardiogram obtained April 2020 revealed severe concentric LVH, hyperdynamic LV systolic function with ejection fraction greater than 70%, mildly thickened aortic leaflets with a mean gradient of 8 mmHg, mild TR and mild pulmonary hypertension with an RVSP of 40 mmHg. REVIEW OF SYSTEMS At the time of my exam: CONSTITUTIONAL: Denies fever or chills. CARDIOVASCULAR: Complains of shortness of breath and orthopnea. Denies chest pain, PND or palpitations. RESPIRATORY: Denies cough. GASTROINTESTINAL: Denies abdominal pain, diarrhea, constipation, nausea or vomiting. MUSCULOSKELETAL: Denies myalgias. NEUROLOGIC: Denies numbness, tingling, headacbe or weakness. ENDOCRINE: Denies fatigue, weight change, polydipsia or polyurina. GENITOURINARY: Denies burning, hematuria or urgency with micturation. HEMATOLOGIC: Denies history of anemia or bleeding. PHYSICAL EXAMINATION Blood pressure 116/58 heart rate 92afebrile and maintaining oxygen saturation on nasal cannula. CONSTITUTIONAL: No apparent distress. HEENT: Head is normocephalic. Pupils are equal, round. Sclerae anicteric. Mucous membranes of the mouth are moist. No JVD. No carotid bruit. CHEST EXAMINATION: Lungs are clear to auscultation. No chest wall tenderness is noted on palpation or with deep breathing. HEART EXAMINATION: Regular rate and rhythm. S1, S2 heard. Systolic ejection murmur at the base, no gallops or rub. ABDOMEN: Soft, nontender. Positive bowel sounds. EXTREMITIES: 2+ peripheral pulses, 3+ bilateral lower extremity pitting edema an d no calf tenderness. NEUROLOGIC EXAMINATION: Patient is awake, alert and oriented x3. ASSESSMENT Acute diastolic heart failure could be related to atrial flutter Chronic persistent atrial flutter with controlled ventricular rates Hypertension Dyslipidemia Diabetes mellitus Morbid obesity, BMI 52 PLAN NPO for EVA/cardioversion this afternoon with Dr. Sapp. Continue IV diuresis. Follow renal function and electrolytes in the morning. Further recommendations to follow based on clinical course. Thank you kindly for this consultation. Nurse Practitioner note has been reviewed, I agree with a documented findings and plan of care. Patient was seen and examined. Past Medical History Past Medical History: Atrial Flutter, COPD, Diabetes Mellitus, Hyperlipidemia, Hypertension, Musculoskeletal Disorder, Pneumonia, Prostate Disorder, Sleep Apnea/CPAP/BIPAP Additional Past Medical History / Comment(s): HX OF BLACK LUNG, home oxygen History of Any Multi-Drug Resistant Organisms: None Reported Past Surgical History: Back Surgery, Hernia Repair, Joint Replacement, Tonsillectomy Additional Past Surgical History / Comment(s): JACY KNEE REPLACEMENT, LEFT SHOULDER "BALL" REPLACED, right shoulder reverse arthroplasty in September 2019 at [facility] Additional Past Anesthesia/Blood Transfusion Reaction / Comment(s): STATES HAS AWAKENED DURING SEVERAL SX INCLUDING JOINT REPLACEMENT Past Psychological History: No Psychological Hx Reported Smoking Status: Never smoker Past Alcohol Use History: None Reported Past Drug Use History: None Reported - Past Family History Mother Family Medical History: CVA/TIA Father Additional Family Medical History / Comment(s): etoh Medications and Allergies Home Medications Medication Instructions Recorded Confirmed Type Atorvastatin [Lipitor] 40 mg PO HS 07/26/13 09/01/20 History Cetirizine HCl [Zyrtec] 10 mg PO DAILY 07/26/13 09/01/20 History Apixaban [Eliquis] 5 mg PO BID 05/10/20 09/01/20 History Carvedilol [Coreg] 12.5 mg PO BID-W/MEALS 05/10/20 09/01/20 History Exenatide Microspheres [Bydureon 2 mg SQ TH 05/10/20 09/01/20 History Pen] INSULIN ASPART (NovoLOG) [NovoLOG See Protocol SQ TID-W/MEALS 05/10/20 09/01/20 History (formulary)] Insulin Glargine,Hum.rec.anlog 80 unit SQ DAILY 05/10/20 09/01/20 History [Paulino Hicks] Magnesium Oxide [Funk] 500 mg PO HS 05/10/20 09/01/20 History Multivitamins, Thera [Multivitamin 1 tab PO DAILY 05/10/20 09/01/20 History (formulary)] Olmesartan Medoxomil [Benicar] 20 mg PO DAILY 05/10/20 09/01/20 History Potassium Gluconate 99 mg PO HS 05/10/20 09/01/20 History metFORMIN HCL [Glucophage] 1,000 mg PO BID 05/10/20 09/01/20 History Budesonide/Formoterol Fumarate 2 puff INHALATION RT-BID 09/01/20 09/01/20 History [Symbicort 160-4.5 Mcg Inhaler] Dextromethorphan Polistirex 10 ml PO DAILY PRN 09/01/20 09/01/20 History [Delsym] Dm/Acetaminophen/Doxylamine [Vicks 30 ml PO HS 09/01/20 09/01/20 History Nyquil Cold-Flu Liquid] Ipratropium-Albuterol Nebulize 3 ml INHALATION RT-QID 09/01/20 09/01/20 History [Duoneb 0.5 mg-3 mg/3 ml Soln] hydroCHLOROthiazide [Hydrodiuril] 50 mg PO DAILY 09/01/20 09/01/20 History predniSONE 5 mg PO DAILY 09/01/20 09/01/20 History Allergies Allergy/AdvReac Type Severity Reaction Status Date / Time adhesive Allergy Rash/Hives Verified 09/01/20 13:01 Penicillins Allergy Rash/Hives Verified 09/01/20 13:01 Physical Exam Vitals: Vital Signs Temp Pulse Pulse Resp BP BP Pulse Ox 09/02/20 07:55 92 09/02/20 07:37 88 09/02/20 04:00 98.1 F 62 20 116/58 95 09/02/20 02:51 76 09/02/20 02:41 76 09/02/20 02:00 76 20 09/02/20 00:00 76 20 124/60 96 09/01/20 20:00 98.4 F 86 20 132/66 94 L 09/01/20 16:00 74 18 09/01/20 15:24 74 18 91/35 94 L 09/01/20 14:05 97.6 F 72 18 139/88 94 L 09/01/20 11:49 98.6 F 72 20 135/70 95 Intake and Output 09/01/20 09/02/20 09/02/20 22:59 06:59 14:59 Intake Total 240 240 180 Output Total 1900 1125 Balance -1660 -885 180 Intake: Oral 240 240 180 Output: Urine 1900 1125 Other: Voiding Method Urinal Urinal # Voids 4 Weight 161.932 kg 157.1 kg Results 09/01/20 12:52 09/01/20 12:52 Cardiac Enzymes 09/01/20 09/01/20 Range/Units 12:52 12:52 AST 29 (17-59) U/L Troponin I <0.012 (0.000-0.034) ng/mL Coagulation 09/01/20 Range/Units 12:52 PT 10.1 (9.0-12.0) sec APTT 23.9 (22.0-30.0) sec CBC 09/01/20 Range/Units 12:52 WBC 7.4 (3.8-10.6) k/uL RBC 5.44 (4.30-5.90) m/uL Hgb 15.4 (13.0-17.5) gm/dL Hct 49.3 (39.0-53.0) % Plt Count 204 (150-450) k/uL Comprehensive Metabolic Panel 09/01/20 Range/Units 12:52 Sodium 139 (137-145) mmol/L Potassium 3.9 (3.5-5.1) mmol/L Chloride 98 (98-107) mmol/L Carbon Dioxide 37 H (22-30) mmol/L BUN 14 (9-20) mg/dL Creatinine 0.70 (0.66-1.25) mg/dL Glucose 141 H (74-99) mg/dL Calcium 9.4 (8.4-10.2) mg/dL AST 29 (17-59) U/L ALT 29 (4-49) U/L Alkaline Phosphatase 72 (38-126) U/L Total Protein 6.6 (6.3-8.2) g/dL Albumin 4.3 (3.5-5.0) g/dL Current Medications Generic Name Dose Route Start Last Admin Trade Name Freq PRN Reason Stop Dose Admin Albuterol/Ipratropium 3 ml 09/02/20 08:00 09/02/20 07:37 Ipratropium-Albuterol 3 Ml Neb INHALATION 3 ml RT-QID SOPHIE Administration Albuterol/Ipratropium 3 ml 09/02/20 02:39 09/02/20 02:41 Ipratropium-Albuterol 3 Ml Neb INHALATION 3 ml RT-QID PRN Administration Shortness Of Breath Or Wheezing Apixaban 5 mg 09/01/20 21:00 09/01/20 20:56 Apixaban 5 Mg Tab PO 5 mg BID SOPHIE Administration Protocol Atorvastatin Calcium 40 mg 09/01/20 21:00 09/01/20 20:56 Atorvastatin 40 Mg Tab PO 40 mg HS SOPHIE Administration Carvedilol 12.5 mg 09/01/20 20:45 09/01/20 20:56 Carvedilol 12.5 Mg Tab PO 12.5 mg BID-W/MEALS SOPHIE Administration Furosemide 40 mg 09/01/20 16:00 09/01/20 20:56 Furosemide 10 Mg/Ml 4 Ml Vial IV 40 mg Q8HR SOPHIE Administration Insulin Aspart 0 unit 09/01/20 21:00 09/02/20 06:17 Insulin Aspart (Novolog) 100 Unit/Ml Vial SQ Not Given ACHS SOPHIE Protocol Metformin HCl 1,000 mg 09/01/20 21:00 09/01/20 20:56 Metformin 500 Mg Tab PO 1,000 mg BID SOPHIE Administration Naloxone HCl 0.2 mg 09/01/20 14:49 Naloxone 0.4 Mg/Ml 1 Ml Vial IV Q2M PRN Opioid Reversal Intake and Output 09/01/20 09/02/20 09/02/20 22:59 06:59 14:59 Intake Total 240 240 180 Output Total 1900 1125 Balance -1660 885 180 Intake: Oral 240 240 180 Output: Urine 1900 1125 Other: Voiding Method Urinal Urinal # Voids 4 Weight 161.932 kg 157.1 kg 09/01/20 12:52 09/01/20 12:52
[2020-09-02 11:42] LABS: Glucose,Whole Blood 141 mg/dL (75-99)
[2020-09-02] MEDS ORDERED: SODIUM CHLORIDE 0.9% 1,000 ML IV ONE ×3 (13:18)
--- NOTE | 2020-09-02 14:31 | P.CNPUL ---
History of Present Illness Consult date: 09/02/20 Reason for consult: dyspnea History of present illness: This is a 70-year-old morbidly obese male patient who is coming in to the hospital because of worsening shortness of breath, cough, congestion and mucus production. The patient is quite short of breath during activities of daily today life. Since his residential, and over the past 10 years, the patient has gained more than 100 pounds. Currently carries a BMI of 52.7. He is a nonsmoke r. He has severe obstructive sleep apnea and based on a recent sleep study, the patient had an AHI of 86.7 and he also had severe nocturnal oxygen desaturation with a minimum pulse ox was low at 34% and the patient spent approximately 70% of the sleep time at a pulse ox of less than 90%. History was extensively fragmented. The patient is scheduled to undergo a CPAP titration at a later stage. He is also utilizing oxygen at baseline at 2 L due to chronic hypoxic respiratory failure. He is got multiple other medical problems and comorbidities including diabetes mellitus, hyperlipidemia, and prostate disease, chronic A. fib/flutter. Based on our records, the patient has been utilizing a nebulizer at home. He has been utilizing Symbicort 2 puffs twice a day, DuoNeb nebulized treatments around the clock, along with prednisone 5 mg on a daily basis. He has been also using dextromethorphan for cough and congestion. Note that the patient has also received several courses of antibiotics and steroids on outpatient basis through his primary care physician and through our office. Based on pulmonary function test is not available at this point in time. His previous echo cardiac exam is shown a preserved LV function with an ejection fraction of about 70%. He has [id number] degree of pulmonary hypertension with a PA pressure of 40. No valvular abnormalities. CTA of the chest showed clear lungs from 05/10/2020. He has been on long-term articulation for A. fib/flutter and the patient has no history of pulmonary embolism. The workup thus far shows chronic hypoxic and hypercapnic respiratory failure room air blood gas that showed a pH of 7.44 with a pCO2 of 56 and pO2 of 66. The patient had normal renal function. The patient normal electrolytes. Troponin 1 is been negative. ProBNP level is at 288. COVID-19 testing is been negative. The white cell count of 7.4 with a hemoglobin of 15.4 and platelets of 203. Normal coagulation profile. Chest x-ray showing pulmonary vessel congestion/interstitial edema. Review of Systems Constitutional: Reports daytime sleepiness, Reports weakness, Reports weight gain Eyes: denies as per HPI, denies blurred vision, denies bulging eye, denies decreased vision, denies diplopia, denies discharge, denies dry eye, denies irritation, denies itching, denies pain, denies photophobia, denies loss of peripheral vision, denies loss of vision, denies tunnel vision/blind spots Ears: deny: decreased hearing, ear discharge, earache, tinnitus Ears, nose, mouth and throat: Reports as per HPI Breasts: absent: as per HPI, gynecomastia Cardiovascular: Reports decreased exercise tolerance, Reports dyspnea on exertion Respiratory: Reports cough with sputum, Reports dyspnea, Reports home oxygen, Reports respiratory infections, Reports sleep apnea, Reports snoring Gastrointestinal: Reports as per HPI Genitourinary: Reports as per HPI Musculoskeletal: Reports as per HPI Musculoskeletal: bilateral: ankle swelling, absent: ankle pain, ankle stiffness Integumentary: Reports as per HPI Neurological: Reports as per HPI Psychiatric: Reports as per HPI Endocrine: Reports as per HPI Hematologic/Lymphatic: Reports as per HPI Allergic/Immunologic: Reports as per HPI Past Medical History Past Medical History: Atrial Flutter, COPD, Diabetes Mellitus, Hyperlipidemia, Hypertension, Musculoskeletal Disorder, Pneumonia, Prostate Disorder, Sleep Apnea/CPAP/BIPAP Additional Past Medical History / Comment(s): HX OF BLACK LUNG, home oxygen History of Any Multi-Drug Resistant Organisms: None Reported Past Surgical History: Back Surgery, Hernia Repair, Joint Replacement, Tonsillectomy Additional Past Surgical History / Comment(s): JACY KNEE REPLACEMENT, LEFT SHOULDER "BALL" REPLACED, right shoulder reverse arthroplasty in September 2019 at [facility] Additional Past Anesthesia/Blood Transfusion Reaction / Comment(s): STATES HAS AWAKENED DURING SEVERAL SX INCLUDING JOINT REPLACEMENT Past Psychological History: No Psychological Hx Reported Smoking Status: Never smoker Past Alcohol Use History: None Reported Past Drug Use History: None Reported - Past Family History Mother Family Medical History: CVA/TIA Father Additional Family Medical History / Comment(s): etoh Medications and Allergies Home Medications Medication Instructions Recorded Confirmed Type Atorvastatin [Lipitor] 40 mg PO HS 07/26/13 09/01/20 History Cetirizine HCl [Zyrtec] 10 mg PO DAILY 07/26/13 09/01/20 History Apixaban [Eliquis] 5 mg PO BID 05/10/20 09/01/20 History Carvedilol [Coreg] 12.5 mg PO BID-W/MEALS 05/10/20 09/01/20 History Exenatide Microspheres [Bydureon 2 mg SQ TH 05/10/20 09/01/20 History Pen] INSULIN ASPART (NovoLOG) [NovoLOG See Protocol SQ TID-W/MEALS 05/10/20 09/01/20 History (formulary)] Insulin Glargine,Hum.rec.anlog 80 unit SQ DAILY 05/10/20 09/01/20 History [Paulino Hicks] Magnesium Oxide [Funk] 500 mg PO HS 05/10/20 09/01/20 History Multivitamins, Thera [Multivitamin 1 tab PO DAILY 05/10/20 09/01/20 History (formulary)] Olmesartan Medoxomil [Benicar] 20 mg PO DAILY 05/10/20 09/01/20 History Potassium Gluconate 99 mg PO HS 05/10/20 09/01/20 History metFORMIN HCL [Glucophage] 1,000 mg PO BID 05/10/20 09/01/20 History Budesonide/Formoterol Fumarate 2 puff INHALATION RT-BID 09/01/20 09/01/20 History [Symbicort 160-4.5 Mcg Inhaler] Dextromethorphan Polistirex 10 ml PO DAILY PRN 09/01/20 09/01/20 History [Delsym] Dm/Acetaminophen/Doxylamine [Vicks 30 ml PO HS 09/01/20 09/01/20 History Nyquil Cold-Flu Liquid] Ipratropium-Albuterol Nebulize 3 ml INHALATION RT-QID 09/01/20 09/01/20 History [Duoneb 0.5 mg-3 mg/3 ml Soln] hydroCHLOROthiazide [Hydrodiuril] 50 mg PO DAILY 09/01/20 09/01/20 History predniSONE 5 mg PO DAILY 09/01/20 09/01/20 History Allergies Allergy/AdvReac Type Severity Reaction Status Date / Time adhesive Allergy Rash/Hives Verified 09/01/20 13:01 Penicillins Allergy Rash/Hives Verified 09/01/20 13:01 Physical Exam Vitals: Vital Signs Temp Pulse Pulse Pulse Resp BP Pulse Ox 09/02/20 14:11 85 16 104/59 93 L 09/02/20 13:56 81 16 111/59 93 L 09/02/20 13:41 74 16 154/72 96 09/02/20 12:00 70 18 100/68 92 L 09/02/20 11:04 80 09/02/20 10:49 76 09/02/20 08:00 97.9 F 72 18 150/72 92 L 09/02/20 07:55 92 09/02/20 07:37 88 09/02/20 04:00 98.1 F 62 20 116/58 95 09/02/20 02:51 76 09/02/20 02:41 76 09/02/20 02:00 76 20 09/02/20 00:00 76 20 124/60 96 09/01/20 20:00 98.4 F 86 20 132/66 94 L 09/01/20 16:00 74 18 09/01/20 15:24 74 18 91/35 94 L Intake and Output 09/01/20 09/02/20 09/02/20 22:59 06:59 14:59 Intake Total 240 240 280 Output Total 1900 1125 1100 Balance -1669 -885 -820 Intake: IV 100 Oral 240 240 180 Output: Urine 1900 1125 1100 Other: Voiding Method Urinal Urinal Urinal # Voids 4 1 Weight 161.932 kg 157.1 kg CONSTITUTIONAL: No apparent distress. Head exam was generally normal. There was no scleral icterus or corneal arcus. Mucous membranes were moist. Neck was supple and without jugular venous distension, thyromegaly, or carotid bruits. Carotids were easily palpable bilaterally. There was no adenopathy. Significant crowding of posterior pharynx with able lymphatic less for CHEST EXAMINATION: Lungs sounds are diminished and there is scattered rhonchi heard throughout the lung moore bilaterally HEART EXAMINATION: Irregular consistent with atrial fibrillation/flutter, irregular S1, S2 heard. Systolic ejection murmur at the base, no gallops or rub. ABDOMEN: Soft, nontender. Positive bowel sounds. EXTREMITIES: 1+ peripheral pulses, 3+ bilateral lower extremity pitting edema and no calf tenderness. NEUROLOGIC EXAMINATION: Patient is awake, alert and oriented x3. Results - Laboratory Findings CBC and BMP: 09/01/20 12:52 09/01/20 12:52 PT/INR, D-dimer PT 10.1 sec (9.0-12.0) 09/01/20 12:52 INR 0.9 (<1.2) 09/01/20 12:52 Abnormal lab findings: Abnormal Labs 09/01/20 09/01/20 09/01/20 12:52 16:51 20:35 Carbon Dioxide 37 H Glucose 141 H POC Glucose (mg/dL) 110 H 157 H Total Bilirubin 1.9 H 09/02/20 09/02/20 06:15 11:39 Carbon Dioxide Glucose POC Glucose (mg/dL) 109 H 141 H Total Bilirubin - Diagnostic Findings Chest x-ray: image reviewed Assessment and Plan Plan: 1 shortness of breath, multifactorial. The patient has chronic respiratory insufficiency in addition to chronic hypoxic and hypercapnic respiratory failure due to obstructive sleep apnea/obesity hypoventilation syndrome. Nevertheless, there are silent symptoms of ongoing tracheal bronchitis with increased congestion cough and mucus production. COPD is doubtful. Previous CAT scan of the chest that showed no evidence of any lung abnormalities in the lungs were essentially within normal limits. No evidence of any pulmonary embolism. Patient has been on long-term anticoagulation. No obvious signs of decompensated heart failure. The patient has a low BNP level. 2 severe obstructive sleep apnea, AHI of 86 associated with severe nocturnal ox ygen desaturation. 3 obesity hypoventilation syndrome with chronic hypercapnic respiratory failure 4 chronic hypoxic respiratory failure 5 morbid obesity with BMI 52.7 6 chronic atrial fibrillation/flutter 7 preserved LV function with mild hypertension secondary to above 8 hypertension 9 hyperlipidemia 10 diabetes mellitus 11 chronic prostate disease Plan Obtain sputum Gram stain and culture Put the patient on Levaquin 750 on a daily basis Continue DuoNeb nebulized treatments around the clock Restart Symbicort Continue deterioration with Eliquis 5 mg by mouth twice a day Resume prednisone 5 mg by mouth daily. No need for higher dose of steroids at this point in time Consider bronchoscopy if the symptoms remain unchanged and no definitive diagnosis in terms of microbial infection The patient is in need for a CPAP titration as the patient has severe obstructive sleep apnea and this will be done within the next few weeks at the sleep Center Cardiology consultation We'll continue to follow
[2020-09-02] MEDS: LEVOFLOXACIN 750 MG TAB PO SCH (16:13)
[2020-09-02] MEDS: LOSARTAN 50 MG TAB PO SCH (16:14)
[2020-09-02] MEDS: predniSONE 5 MG TAB PO SCH (16:14)
[2020-09-02 16:37] LABS: Glucose,Whole Blood 160 mg/dL (75-99)
--- NOTE | 2020-09-02 16:40 | P.HPIM ---
History of Present Illness H&P Date: 09/02/20 This is a 70-year-old male patient of Dr. Lemos and Dr. Galloway with past medical history of diabetes mellitus type 2, hypertension, hyperlipidemia, suspected obstructive sleep apnea, history of atrial flutter on eliquis. He complains of cough and shortness of breath, for the past 4 weeks, for which she was managed by Dr. Gonzalez and the PCP, 5 visits over the past 4 weeks, to include an antibiotic, oral steroids, rescue inhalers and steroid inhalers, he does have purulence with a cough, increasing lower leg edema, shortness of breath and dyspnea on exertion, and palpitations. He does have PND, and orthopnea, and was subsequently seen in emergency room for worsening symptoms, and was found to be in congestive heart failure, with purulent tracheal bronchitis with bronchospasm. Echocardiogram was 60 obtained April 2020, shows severe concentric LVH, ejection fraction greater than 70%, right ventricular systolic pressure 40, mild TR, mild pulmonary hypertension, mildly thickened aortic valve leaflets with mean gradient of 8, troponin negative 1, NT proBNP of 288, patient is on a eliquis Coreg hydrochlorothiazide, and is currently in the cardiac lab, for EVA cardioversion, 40 shortness of breath. EKG showed incomplete right bundle branch block, with underlying atrial flutter controlled rate, chest x-ray showed venous congestion. On the interim, he had a sleep apnea machine, ordered by pulmonary, for which he stopped breathing 50 times in one hour, AHI of 50, for which CPAP machine was ordered by Dr. Reyez, and this will be expedited Review of Systems Constitutional: Reports as per HPI, Denies anorexia, Denies chills, Denies chronic headaches, Denies chronic pain, Denies daytime sleepiness, Denies fatigue, Denies fever, Denies lethargy, Denies malaise, Denies night sweats, Denies poor appetite, Denies sweats, Denies weakness, Denies weight gain, Denies weight loss Ears, nose, mouth and throat: Reports as per HPI Cardiovascular: Reports decreased exercise tolerance, Reports dyspnea on exertion, Reports edema, Reports irregular heart beat, Reports palpitations Respiratory: Reports cough, Reports cough with sputum, Reports dyspnea, Reports sleep apnea, Reports snoring Gastrointestinal: Reports as per HPI Integumentary: Reports as per HPI, Denies acne, Denies boils, Denies brittle nails, Denies change in hair/nails, Denies color changes, Denies darkening of skin, Denies depigmentation, Denies dryness, Denies foot/leg ulcers, Denies growths, Denies hirsutism, Denies lesions, Denies onychomycosis, Denies pruritus, Denies rash, Denies sores, Denies striae, Denies unusual bruising, Denies wounds Neurological: Reports as per HPI, Denies aphasia, Denies ataxia, Denies balance difficulties, Denies burning pain, Denies change in mentation, Denies change in smell/taste, Denies change in speech, Denies confusion, Denies convulsions, Denies double vision, Denies gait dysfunction, Denies head injury, Denies headaches, Denies hearing difficulties, Denies lack of coordination, Denies loss of vision, Denies memory loss, Denies migraines, Denies motor disturbance, Denies numbness, Denies paralysis, Denies paresthesias, Denies seizures, Denies sensory deficit, Denies spasticity, Denies syncope, Denies tic, Denies tingling, Denies transient paralysis, Denies tremors, Denies vertigo, Denies weakness, Denies visual changes Psychiatric: Reports as per HPI, Reports sleep disturbances Endocrine: Reports as per HPI, Reports fatigue, Reports palpitations Hematologic/Lymphatic: Reports as per HPI Allergic/Immunologic: Reports as per HPI, Reports wheezing, Denies angioedema Past Medical History Past Medical History: Atrial Flutter, COPD, Diabetes Mellitus, Hyperlipidemia, Hypertension, Musculoskeletal Disorder, Pneumonia, Prostate Disorder, Sleep Apnea/CPAP/BIPAP Additional Past Medical History / Comment(s): HX OF BLACK LUNG, home oxygen History of Any Multi-Drug Resistant Organisms: None Reported Past Surgical History: Back Surgery, Hernia Repair, Joint Replacement, Tonsillectomy Additional Past Surgical History / Comment(s): JACY KNEE REPLACEMENT, LEFT SHOULDER "BALL" REPLACED, right shoulder reverse arthroplasty in September 2019 at [facility] Additional Past Anesthesia/Blood Transfusion Reaction / Comment(s): STATES HAS AWAKENED DURING SEVERAL SX INCLUDING JOINT REPLACEMENT Past Psychological History: No Psychological Hx Reported Smoking Status: Never smoker Past Alcohol Use History: None Reported Past Drug Use History: None Reported - Past Family History Mother Family Medical History: CVA/TIA Father Additional Family Medical History / Comment(s): etoh Medications and Allergies Home Medications Medication Instructions Recorded Confirmed Type Atorvastatin [Lipitor] 40 mg PO HS 07/26/13 09/01/20 History Cetirizine HCl [Zyrtec] 10 mg PO DAILY 07/26/13 09/01/20 History Apixaban [Eliquis] 5 mg PO BID 05/10/20 09/01/20 History Carvedilol [Coreg] 12.5 mg PO BID-W/MEALS 05/10/20 09/01/20 History Exenatide Microspheres [Bydureon 2 mg SQ TH 05/10/20 09/01/20 History Pen] INSULIN ASPART (NovoLOG) [NovoLOG See Protocol SQ TID-W/MEALS 05/10/20 09/01/20 History (formulary)] Insulin Glargine,Hum.rec.anlog 80 unit SQ DAILY 05/10/20 09/01/20 History [Paulino Hicks] Magnesium Oxide [Funk] 500 mg PO HS 05/10/20 09/01/20 History Multivitamins, Thera [Multivitamin 1 tab PO DAILY 05/10/20 09/01/20 History (formulary)] Olmesartan Medoxomil [Benicar] 20 mg PO DAILY 05/10/20 09/01/20 History Potassium Gluconate 99 mg PO HS 05/10/20 09/01/20 History metFORMIN HCL [Glucophage] 1,000 mg PO BID 05/10/20 09/01/20 History Budesonide/Formoterol Fumarate 2 puff INHALATION RT-BID 09/01/20 09/01/20 History [Symbicort 160-4.5 Mcg Inhaler] Dextromethorphan Polistirex 10 ml PO DAILY PRN 09/01/20 09/01/20 History [Delsym] Dm/Acetaminophen/Doxylamine [Vicks 30 ml PO HS 09/01/20 09/01/20 History Nyquil Cold-Flu Liquid] Ipratropium-Albuterol Nebulize 3 ml INHALATION RT-QID 09/01/20 09/01/20 History [Duoneb 0.5 mg-3 mg/3 ml Soln] hydroCHLOROthiazide [Hydrodiuril] 50 mg PO DAILY 09/01/20 09/01/20 History predniSONE 5 mg PO DAILY 09/01/20 09/01/20 History Allergies Allergy/AdvReac Type Severity Reaction Status Date / Time adhesive Allergy Rash/Hives Verified 09/01/20 13:01 Penicillins Allergy Rash/Hives Verified 09/01/20 13:01 Physical Exam Vitals: Vital Signs Temp Pulse Pulse Resp BP BP Pulse Ox 09/02/20 10:49 76 09/02/20 07:55 92 09/02/20 07:37 88 09/02/20 04:00 98.1 F 62 20 116/58 95 09/02/20 02:51 76 09/02/20 02:41 76 09/02/20 02:00 76 20 09/02/20 00:00 76 20 124/60 96 09/01/20 20:00 98.4 F 86 20 132/66 94 L 09/01/20 16:00 74 18 09/01/20 15:24 74 18 91/35 94 L 09/01/20 14:05 97.6 F 72 18 139/88 94 L 09/01/20 11:49 98.6 F 72 20 135/70 95 Intake and Output 09/01/20 09/02/20 09/02/20 22:59 06:59 14:59 Intake Total 240 240 180 Output Total 1900 1125 Balance -1660 -885 180 Intake: Oral 240 240 180 Output: Urine 1900 1125 Other: Voiding Method Urinal Urinal # Voids 4 Weight 161.932 kg 157.1 kg - Constitutional General appearance: morbidly obese - EENT Eyes: EOMI, PERRLA, dentition normal, poor dentition ENT: NA/AT - Neck Neck: normal ROM - Respiratory Respiratory: bilateral: CTA, negative: diminished, dullness, rales - Cardiovascular Rhythm: regular Heart sounds: normal: S1, S2 Abnormal Heart Sounds: no systolic murmur, no diastolic murmur, no rub, no S3 Gallop, no S4 Gallop, no click, no other - Gastrointestinal General gastrointestinal: normal bowel sounds, soft - Integumentary Integumentary: decreased turgor, normal - Neurologic Neurologic: CNII-XII intact - Musculoskeletal Musculoskeletal: gait normal, strength equal bilaterally - Psychiatric Psychiatric: A&O x's 3, appropriate affect, intact judgment & insight Results CBC & Chem 7: 09/01/20 12:52 09/01/20 12:52 Labs: Abnormal Lab Results - Last 24 Hours (Table) 09/01/20 09/01/20 09/01/20 Range/Units 12:52 16:51 20:35 Carbon Dioxide 37 H (22-30) mmol/L Glucose 141 H (74-99) mg/dL POC Glucose (mg/dL) 110 H 157 H (75-99) mg/dL Total Bilirubin 1.9 H (0.2-1.3) mg/dL 09/02/20 Range/Units 06:15 Carbon Dioxide (22-30) mmol/L Glucose (74-99) mg/dL POC Glucose (mg/dL) 109 H (75-99) mg/dL Total Bilirubin (0.2-1.3) mg/dL Laboratory Results WBC 7.4 k/uL (3.8-10.6) 09/01/20 12:52 RBC 5.44 m/uL (4.30-5.90) 09/01/20 12:52 Hgb 15.4 gm/dL (13.0-17.5) 09/01/20 12:52 Hct 49.3 % (39.0-53.0) 09/01/20 12:52 MCV 90.7 fL (80.0-100.0) 09/01/20 12:52 MCH 28.4 pg (25.0-35.0) 09/01/20 12:52 MCHC 31.3 g/dL (31.0-37.0) 09/01/20 12:52 RDW 14.3 % (11.5-15.5) 09/01/20 12:52 Plt Count 204 k/uL (150-450) 09/01/20 12:52 MPV 7.4 09/01/20 12:52 Neutrophils % 70 % 09/01/20 12:52 Lymphocytes % 18 % 09/01/20 12:52 Monocytes % 8 % 09/01/20 12:52 Eosinophils % 2 % 09/01/20 12:52 Basophils % 0 % 09/01/20 12:52 Neutrophils # 5.2 k/uL (1.3-7.7) 09/01/20 12:52 Lymphocytes # 1.3 k/uL (1.0-4.8) 09/01/20 12:52 Monocytes # 0.6 k/uL (0-1.0) 09/01/20 12:52 Eosinophils # 0.2 k/uL (0-0.7) 09/01/20 12:52 Basophils # 0.0 k/uL (0-0.2) 09/01/20 12:52 Hypochromasia Slight 09/01/20 12:52 PT 10.1 sec (9.0-12.0) 09/01/20 12:52 INR 0.9 (<1.2) 09/01/20 12:52 APTT 23.9 sec (22.0-30.0) 09/01/20 12:52 Sodium 139 mmol/L (137-145) 09/01/20 12:52 Potassium 3.9 mmol/L (3.5-5.1) 09/01/20 12:52 Chloride 98 mmol/L (98-107) 09/01/20 12:52 Carbon Dioxide 37 mmol/L (22-30) H 09/01/20 12:52 Anion Gap 4 mmol/L 09/01/20 12:52 BUN 14 mg/dL (9-20) 09/01/20 12:52 Creatinine 0.70 mg/dL (0.66-1.25) 09/01/20 12:52 Est GFR (CKD-EPI)AfAm >90 (>60 ml/min/1.73 sqM) 09/01/20 12:52 Est GFR (CKD-EPI)NonAf >90 (>60 ml/min/1.73 sqM) 09/01/20 12:52 Glucose 141 mg/dL (74-99) H 09/01/20 12:52 POC Glucose (mg/dL) 141 mg/dL (75-99) H 09/02/20 11:39 POC Glu Double Reamer Operator ID Khushi Cameron 09/02/20 11:39 Calcium 9.4 mg/dL (8.4-10.2) 09/01/20 12:52 Magnesium 1.9 mg/dL (1.6-2.3) 09/01/20 12:52 Total Bilirubin 1.9 mg/dL (0.2-1.3) H 09/01/20 12:52 AST 29 U/L (17-59) 09/01/20 12:52 ALT 29 U/L (4-49) 09/01/20 12:52 Alkaline Phosphatase 72 U/L (38-126) 09/01/20 12:52 Troponin I <0.012 ng/mL (0.000-0.034) 09/01/20 12:52 NT-Pro-B Natriuret Pep 288 pg/mL 09/01/20 12:52 Total Protein 6.6 g/dL (6.3-8.2) 09/01/20 12:52 Albumin 4.3 g/dL (3.5-5.0) 09/01/20 12:52 Coronavirus (PCR) Not Detected (Not Detectd) 09/01/20 15:29 Thrombosis Risk Factor Assmnt - DVT/VTE Prophylaxis DVT/VTE Prophylaxis: Pharmacologic Prophylaxis ordered - Choose All That Apply Each Factor Represents 1 point: Heart failure (<1month), Swollen legs (current) Other Risk Factors: Yes Each Risk Factor Represents 2 Points: Age 61-74 years Other congenital or acquired thrombophilia - If yes, enter type in comment: No Thrombosis Risk Factor Assessment Total Risk Factor Score: 4 Thrombosis Risk Factor Assessment Level: Moderate Risk Assessment and Plan Plan: 1. Acute diastolic CHF, with persistent atrial flutter, requiring EVA with cardioversion, Dr. Sapp on 09/02/2020, electrolytes will be followed, patient's on AEliquis and Coreg 2. Acute purulent on chronic bronchitis with bronchospasm, no pneumonia noted on /chest x-ray. Consult with pulmonary medicine appreciated. Continue DuoNeb treatments 4 times daily and every 4 hours as needed, Pulmicort 1 mg twice daily, Levaquin 750 mg daily Symbicort 160 on maintenance prednisone 5 mg daily 2. obstructive sleep apnea. Sleep machine to be designated by pulmonary, on discharge, device referral is in progress, device to arrive expeditiously soon 3. History of atrial flutter. Continue eliquis 5 mg twice daily. 4. Hypertension. Continue Coreg 12.5 mg at bedtime, hydrochlorothiazide 25 mg daily, Benicar 20 mg daily. 5. Hyperlipidemia. Continue Lipitor 40 mg at bedtime. 6. Diabetes mellitus type 2. Patient was on tuojeo 80 units daily Bydureon 2 mg every , NovoLog scale before meals and at bedtime, patient started on metformin 1000 mg twice daily. However sugars are in the low 100, Tuojeo and Byjhonnyreon is on hold currently on a scale blood sugars needs to be a chested, 7. Seasonal ALLERGIES. Claritin 10 mg daily, Singulair 10 mg at bedtime. 8. Suspected GERD and GI prophylaxis. Protonix 40 mg daily. 9. DVT prophylaxis. Heparin subcu.
[2020-09-02] MEDS: SYMBICORT 160-4.5 MCG INHALER INHALATION SCH (20:08)
[2020-09-02 20:18] LABS: Glucose,Whole Blood 285 mg/dL (75-99)
[2020-09-02] MEDS: MAGNESIUM OXIDE 400 MG TAB PO SCH (20:39)
[2020-09-02] MEDS: ATORVASTATIN 40 MG TAB PO SCH (20:39)
[2020-09-03 05:55] LABS: Glucose,Whole Blood 195 mg/dL (75-99)
[2020-09-03] MEDS: carvediloL 12.5 MG TAB PO SCH ×2 (06:46→17:30)
[2020-09-03] MEDS: INSULIN ASPART (NovoLOG) 100 UNIT/ML VIAL SQ SCH ×4 (06:47→20:46)
[2020-09-03] MEDS: FUROSEMIDE 10 MG/ML 4 ML VIAL IV SCH ×3 (08:00→23:40)
[2020-09-03] MEDS: IPRATROPIUM-ALBUTEROL 3 ML NEB INHALATION SCH ×4 (08:18→19:31)
[2020-09-03] MEDS: SYMBICORT 160-4.5 MCG INHALER INHALATION SCH ×2 (08:30→19:31)
[2020-09-03 08:50] LABS: African American GFR (CKD) >90 (>60 ml/min/1.73 sqM); Anion Gap 5 mmol/L; Blood Urea Nitrogen 20 mg/dL (9-20); Calcium 8.7 mg/dL (8.4-10.2); Carbon Dioxide 38 mmol/L (22-30); Chloride 94 mmol/L (98-107); Glucose 229 mg/dL (74-99); Non-African American GFR(CKD) >90 (>60 ml/min/1.73 sqM); Potassium 3.8 mmol/L (3.5-5.1); Sodium 137 mmol/L (137-145)
[2020-09-03] MEDS: MULTIVITAMINS, THERA 1 EACH TAB PO SCH (09:31)
[2020-09-03] MEDS: LOSARTAN 50 MG TAB PO SCH (09:32)
[2020-09-03] MEDS: metFORMIN 500 MG TAB PO SCH ×2 (09:32→20:47)
[2020-09-03] MEDS: APIXABAN 5 MG TAB PO SCH ×2 (09:32→20:46)
[2020-09-03] MEDS: LEVOFLOXACIN 750 MG TAB PO SCH (09:32)
[2020-09-03] MEDS: predniSONE 5 MG TAB PO SCH (09:37)
--- NOTE | 2020-09-03 10:15 | P.PN ---
Subjective Progress Note Date: 09/03/20 This is a 70-year-old morbidly obese male patient who is coming in to the hospital because of worsening shortness of breath, cough, congestion and mucus production. The patient is quite short of breath during activities of daily today life. Since his snf, and over the past 10 years, the patient has gained more than 100 pounds. Currently carries a BMI of 52.7. He is a nonsmoker. He has severe obstructive sleep apnea and based on a recent sleep study, the patient had an AHI of 86.7 and he also had severe nocturnal oxygen desaturation with a minimum pulse ox was low at 34% and the patient spent approximately 70% of the sleep time at a pulse ox of less than 90%. History was extensively fragmented. The patient is scheduled to undergo a CPAP titration at a later stage. He is also utilizing oxygen at baseline at 2 L due to chronic hypoxic respiratory failure. He is got multiple other medical problems and comorbidities including diabetes mellitus, hyperlipidemia, and prostate disease, chronic A. fib/flutter. Based on our records, the patient has been utilizing a nebulizer at home. He has been utilizing Symbicort 2 puffs twice a day, DuoNeb nebulized treatments around the clock, along with prednisone 5 mg on a daily basis. He has been also using dextromethorphan for cough and congestion. Note that the patient has also received several courses of antibiotics and steroids o n outpatient basis through his primary care physician and through our office. Based on pulmonary function test is not available at this point in time. His previous echo cardiac exam is shown a preserved LV function with an ejection fraction of about 70%. He has [id number] degree of pulmonary hypertension with a PA pressure of 40. No valvular abnormalities. CTA of the chest showed clear lungs from 05/10/2020. He has been on long-term articulation for A. fib/flutter and the patient has no history of pulmonary embolism. The workup thus far shows chronic hypoxic and hypercapnic respiratory failure room air blood gas that showed a pH of 7.44 with a pCO2 of 56 and pO2 of 66. The patient had normal renal function. The patient normal electrolytes. Troponin 1 is been negative. ProBNP level is at 288. COVID-19 testing is been negative. The white cell count of 7.4 with a hemoglobin of 15.4 and platelets of 203. Normal coagulation profile. Chest x-ray showing pulmonary vessel congestion/interstitial edema. 09/03/2020, the patient's coughing has dried up significantly and is not producing much of mucus. No fever. No chills. Is on Levaquin. He is also on 5 mg of prednisone a daily basis. No other significant events overnight. He is on Symbicort. Is on DuoNeb nebulized treatments around the clock. He remains on long-term medical condition with Eliquis. There was need a CPAP titration regarding his severe symptomatic obstructive sleep apnea. No signs of any fluid overload. Objective - Vital Signs Vital signs: Vital Signs Temp 97.8 F 09/03/20 08:00 Pulse 84 09/03/20 08:30 Resp 16 09/03/20 08:00 BP 112/55 09/03/20 08:00 Pulse Ox 94 L 09/03/20 08:00 Intake & Output 09/02/20 09/03/20 09/03/20 18:59 06:59 18:59 Intake Total 470 Output Total 1800 2540 340 Balance -1330 -2540 -340 Weight 159.5 kg Intake: IV 50 Oral 420 Output: Urine 1800 2540 340 Other: Voiding Method Urinal Urinal # Voids 1 1 - Exam CONSTITUTIONAL: No apparent distress. Head exam was generally normal. There was no scleral icterus or corneal arcus. Mucous membranes were moist. Neck was supple and without jugular venous distension, thyromegaly, or carotid bruits. Carotids were easily palpable bilaterally. There was no adenopathy. Significant crowding of posterior pharynx with able lymphatic less for CHEST EXAMINATION: Lungs sounds are diminished and there is scattered rhonchi heard throughout the lung moore bilaterally HEART EXAMINATION: Irregular consistent with atrial fibrillation/flutter, irregular S1, S2 heard. Systolic ejection murmur at the base, no gallops or rub. ABDOMEN: Soft, nontender. Positive bowel sounds. EXTREMITIES: 1+ peripheral pulses, 3+ bilateral lower extremity pitting edema and no calf tenderness. NEUROLOGIC EXAMINATION: Patient is awake, alert and oriented x3. - Labs CBC & Chem 7: 09/01/20 12:52 09/03/20 08:03 Labs: Abnormal Lab Results - Last 24 Hours (Table) 09/02/20 09/02/20 09/02/20 Range/Units 11:39 16:31 20:16 Chloride (98-107) mmol/L Carbon Dioxide (22-30) mmol/L Glucose (74-99) mg/dL POC Glucose (mg/dL) 141 H 160 H 285 H (75-99) mg/dL 09/03/20 09/03/20 Range/Units 05:54 08:03 Chloride 94 L (98-107) mmol/L Carbon Dioxide 38 H (22-30) mmol/L Glucose 229 H (74-99) mg/dL POC Glucose (mg/dL) 195 H (75-99) mg/dL Assessment and Plan Plan: 1 shortness of breath, multifactorial. The patient has chronic respiratory insufficiency in addition to chronic hypoxic and hypercapnic respiratory failure due to obstructive sleep apnea/obesity hypoventilation syndrome. Nevertheless, there are silent symptoms of ongoing tracheal bronchitis with increased congestion cough and mucus production. COPD is doubtful. Previous CAT scan of the chest that showed no evidence of any lung abnormalities in the lungs were essentially within normal limits. No evidence of any pulmonary embolism. Patient has been on long-term anticoagulation. No obvious signs of decompensat ed heart failure. The patient has a low BNP level. 2 severe obstructive sleep apnea, AHI of 86 associated with severe nocturnal oxygen desaturation. 3 obesity hypoventilation syndrome with chronic hypercapnic respiratory failure 4 chronic hypoxic respiratory failure 5 morbid obesity with BMI 52.7 6 chronic atrial fibrillation/flutter 7 preserved LV function with mild hypertension secondary to above 8 hypertension 9 hyperlipidemia 10 diabetes mellitus 11 chronic prostate disease Plan clinically much improved Continue Levaquin Continue DuoNeb nebulized treatments around the clock/ Symbicort Continue deterioration with Eliquis 5 mg by mouth twice a day Resume prednisone 5 mg by mouth daily. No need for higher dose of steroids at this point in time Cardiology consultation Lasix for another 24 hours IV We'll continue to follow, Will need a CPAP titration to be done on outpatient basis
--- NOTE | 2020-09-03 11:04 | P.PN ---
Subjective Progress Note Date: 09/03/20 This is a pleasant 70-year-old male past medical history significant for chronic persistent atrial fibrillation on long-term anticoagulation, sleep apnea, hypertension, dyslipidemia, diabetes mellitus and morbid obesity. He follows in the office with Dr. Sapp. We have been asked to see in consultation for heart failure. Continued to the hospital with symptoms of worsening shortness of breath. He states this is been going on for essentially the previous one year. He states with minimal activity he becomes short of breath. He can no longer golf and walk the course that he used to due to exertional shortness of breath. He is unable to perform his activities of daily living without having to take frequent breaks. He states when he starts getting short of breath he starts coughing and he cannot catch his breath. He has followed with the under water assistant and states over the course of the previous year he has been tried on many courses of antibiotics and steroids which to seem to help but the relief only lasts for about 2 weeks and then was returned. The last time he saw Dr. Sapp in the office was October 2019 and at that time he was recommended to undergo a EVA cardioversion. The patient states he has been unable to make it back to the office due to his symptoms of shortness of breath. Most recent echocardiogram obtained April 2020 revealed severe concentric LVH, hyperdy namic LV systolic function with ejection fraction greater than 70%, mildly thickened aortic leaflets with a mean gradient of 8 mmHg, mild TR and mild pulmonary hypertension with an RVSP of 40 mmHg. patient underwent EVA with elective cardioversion yesterday today remains in a normal sinus rhythm. O verall he continues to have a cough however the patient states it significantly improved from previous. Blood pressure 112/60 with a heart rate in the 70s, 94% on 2 L. Sodium 137, potassium 3.8, BUN 20, creatinine 0.7. Objective - Vital Signs Vital signs: Vital Signs Temp 97.8 F 09/03/20 08:00 Pulse 84 09/03/20 08:30 Resp 16 09/03/20 08:00 BP 112/55 09/03/20 08:00 Pulse Ox 94 L 09/03/20 08:00 Intake & Output 09/02/20 09/03/20 09/03/20 18:59 06:59 18:59 Intake Total 470 Output Total 1800 2540 340 Balance -1330 -2540 -340 Weight 159.5 kg Intake: IV 50 Oral 420 Output: Urine 1800 2540 340 Other: Voiding Method Urinal Urinal # Voids 1 1 - Exam CONSTITUTIONAL: No apparent distress. Head exam was generally normal. There was no scleral icterus or corneal arcus. Mucous membranes were moist. Neck was supple and without jugular venous distension, thyromegaly, or carotid bruits. Carotids were easily palpable bilaterally. There was no adenopathy. Significant crowding of posterior pharynx with able lymphatic less for CHEST EXAMINATION: Lungs sounds are diminished and there is scattered rhonchi heard throughout the lung moore bilaterally HEART EXAMINATION: Irregular consistent with atrial fibrillation/flutter, irregular S1, S2 heard. Systolic ejection murmur at the base, no gallops or rub. ABDOMEN: Soft, nontender. Positive bowel sounds. EXTREMITIES: 1+ peripheral pulses, 3+ bilateral lower extremity pitting edema and no calf tenderness. NEUROLOGIC EXAMINATION: Patient is awake, alert and oriented x3. - Labs CBC & Chem 7: 09/01/20 12:52 09/03/20 08:03 Labs: Abnormal Lab Results - Last 24 Hours (Table) 09/02/20 09/02/20 09/02/20 Range/Units 11:39 16:31 20:16 Chloride (98-107) mmol/L Carbon Dioxide (22-30) mmol/L Glucose (74-99) mg/dL POC Glucose (mg/dL) 141 H 160 H 285 H (75-99) mg/dL 09/03/20 09/03/20 Range/Units 05:54 08:03 Chloride 94 L (98-107) mmol/L Carbon Dioxide 38 H (22-30) mmol/L Glucose 229 H (74-99) mg/dL POC Glucose (mg/dL) 195 H (75-99) mg/dL Assessment and Plan Plan: Assessment and plan 1 shortness of breath, multifactorial. The patient has chronic respiratory insufficiency in addition to chronic hypoxic and hypercapnic respiratory failure due to obstructive sleep apnea/obesity hypoventilation syndrome. Diastolic congestive heart failure acute on chronic 2 severe obstructive sleep apnea, AHI of 86 associated with severe nocturnal oxygen desaturation. 3 obesity hypoventilation syndrome with chronic hypercapnic respiratory failure 4 chronic hypoxic respiratory failure 5 morbid obesity with BMI 52.7 6 chronic atrial fibrillation/atypical flutter, status post EVA and elective cardioversion, currently in normal sinus rhythm. 7 preserved LV function with mild hypertension secondary to above 8 hypertension 9 hyperlipidemia 10 diabetes mellitus 11 chronic prostate disease Plan From cardiology's perspective, we'll recommend to continue the patient on his current medication, including Eliquis, Lipitor, Coreg 12-1/2 mg twice a day, IV Lasix continue for 24 hours, Cozaar. DNP note has been reviewed, I agree with a documented findings and plan of care. Patient was seen and examined.
--- NOTE | 2020-09-03 11:29 | CE ---
CARDIAC ELECTROPHYSIOLOGY REPORT DATE OF SERVICE: 09/02/2020 PERFORMING PHYSICIAN: Onur Sapp MD. PROCEDURE PERFORMED: Successful cardioversion of atrial flutter to normal sinus mechanism using 200 joules on first attempt. INDICATION: Atrial flutter. COMPLICATION: None. LEVEL OF SEDATION: Deep sedation was performed using propofol with TABLEAU ADMINISTRATOR in the room. PROCEDURE DESCRIPTION: After transesophageal echocardiogram was performed and left atrial appendage thrombus was ruled out, we proceeded with a cardioversion. The patient cardioverted from atrial fibrillation to normal sinus mechanism using 200 joules on first attempt. CONCLUSION: Successful cardioversion of atrial flutter to normal sinus mechanism using 200 joules on first attempt. MMODL / IJN: [id number] /
--- NOTE | 2020-09-03 11:29 | ECHOT ---
TRANSESOPHAGEAL ECHOCARDIOGRAM DATE OF SERVICE: 09/02/2020 PERFORMING PHYSICIAN: Onur Sapp MD. PROCEDURE PERFORMED: Transesophageal echocardiogram. INDICATION: Rule out any left atrial appendage thrombus. COMPLICATION: None. LEVEL OF SEDATION: Moderate with sedation length of 15 minutes. PROCEDURE DESCRIPTION: After obtaining an informed consent, the patient was brought to the recovery room. A pulse oximetry and heart rate monitors were attached to the patient. Subsequently, the patient was turned into left lateral position. A bite guard was placed. Subsequently, the transesophageal echocardiogram probe was advanced through the bite guard to the mid esophageal where a 2D echocardiogram images as well as color Doppler images of various cardiac structures were obtained. The echo was performed using 2D echo, as well as color Doppler and pulse Doppler, and continuous-wave Doppler. Please note that the patient was sedated using propofol prior to the procedure. FINDINGS: The left ventricular dimension and systolic function appeared to be within normal limits. The patient does have mild concentric LVH. Right ventricle appeared to be of normal size and function. The left atrium appeared to be mildly dilated. The left atrial appendage appeared to be free from any thrombus. The interatrial septum appeared to be intact. The aortic valve is trileaflet valve with decreased opening of the of the left coronary cusp. The mitral valve seems to be thickened with mild MR. There is mild to moderate tricuspid regurgitation seen. CONCLUSION: 1. Intact left atrial appendage without any evidence of thrombus. 2. Normal left ventricular dimension and systolic function. 3. Normal right ventricular dimension and systolic function. 4. Aortic sclerosis with mild aortic insufficiency. 5. Thickened mitral valve leaflets with mild MR. 6. Normal tricuspid valve and pulmonic valve. MMODL / IJN: [id number] /
[2020-09-03 12:07] LABS: Glucose,Whole Blood 221 mg/dL (75-99)
--- NOTE | 2020-09-03 15:20 | P.PN ---
Subjective Progress Note Date: 09/03/20 This is a 70-year-old male patient of Dr. Lemos and Dr. Galloway with past medical history of diabetes mellitus type 2, hypertension, hyperlipidemia, suspected obstructive sleep apnea, history of atrial flutter on eliquis. He complains of cough and shortness of breath, for the past 4 weeks, for which she was managed by Dr. Gonzalez and the PCP, 5 visits over the past 4 weeks, to include an antibiotic, oral steroids, rescue inhalers and steroid inhalers, he does have purulence with a cough, increasing lower leg edema, shortness of breath and dyspnea on exertion, and palpitations. He does have PND, and orthopnea, and was subsequently seen in emergency room for worsening symptoms, and was found to be in congestive heart failure, with purulent tracheal bronchitis with bronchospasm. Echocardiogram was 60 obtained April 2020, shows severe concentric LVH, ejection fraction greater than 70%, right ventricular systolic pressure 40, mild TR, mild pulmonary hypertension, mildly thickened aortic valve leaflets with mean gradient of 8, troponin negative 1, NT proBNP of 288, patient is on a eliquis Coreg hydrochlorothiazide, and is currently in the cardiac lab, for EVA cardioversion, 40 shortness of breath. EKG showed incomplete right bundle branch block, with underlying atrial flutter controlled rate, chest x-ray showed venous congestion. On the interim, he had a sleep apnea machine, ordered by pulmonary, for which he stopped breathing 50 times in one hour, AHI of 50, for which CPAP machine was ordered by Dr. Reyez, and this will be expedited EVA performed, to evaluate for left atrial appendage thrombus, 09/03: Patient sitting, noted to have edema, bilateral legs and highs, no shortness of breath during conversation, has some dyspnea on exertion, still has some cough, BNP is normal, EVA was performed 09/02/2020, to look for left lateral appendage thrombus, currently it was negative for any thrombus, has normal right ventricular dimension and systolic function, aortic sclerosis with mild aortic insufficiency, thickened mitral valve with mild MR, EF documented to be within normal limits, have mild concentric LVH. Chest patient is currently on IV Lasix 40 mg every 8 hours, he is on oral Levaquin, chronic prednisone 5 mg daily, Symbicort, and DuoNeb around the clock. There was no change in [place], no signs of active bleeding at this time, Dr. Reyez has evaluated the patient, with plans for keeping IV Lasix for the next 24 hours, patient's anticipated to be discharged tomorrow fper other services. Diabetes medications are readjusted today, he already took his Bydureon, we are going to start Levemir 80 units, to replace his tuojeo from home Review of Systems Constitutional: Reports as per HPI, Denies anorexia, Denies chills, Denies chronic headaches, Denies chronic pain, Denies daytime sleepiness, Denies fatigue, Denies fever, Denies lethargy, Denies malaise, Denies night sweats, Denies poor appetite, Denies sweats, Denies weakness, Denies weight gain, Denies weight loss Ears, nose, mouth and throat: Reports as per HPI Cardiovascular: Reports decreased exercise tolerance, Reports dyspnea on exertion, Reports edema, Reports irregular heart beat, Reports palpitations Respiratory: Reports cough, Reports cough with sputum, Reports dyspnea, Reports sleep apnea, Reports snoring Gastrointestinal: Reports as per HPI Integumentary: Reports as per HPI, Denies acne, Denies boils, Denies brittle nails, Denies change in hair/nails, Denies color changes, Denies darkening of skin, Denies depigmentation, Denies dryness, Denies foot/leg ulcers, Denies growths, Denies hirsutism, Denies lesions, Denies onychomycosis, Denies pruritus, Denies rash, Denies sores, Denies striae, Denies unusual bruising, Denies wounds Neurological: Reports as per HPI, Denies aphasia, Denies ataxia, Denies balance difficulties, Denies burning pain, Denies change in mentation, Denies change in smell/taste, Denies change in speech, Denies confusion, Denies convulsions, Denies double vision, Denies gait dysfunction, Denies head injury, Denies headaches, Denies hearing difficulties, Denies lack of coordination, Denies loss of vision, Denies memory loss, Denies migraines, Denies motor disturbance, Denies numbness, Denies paralysis, Denies paresthesias, Denies seizures, Denies sensory deficit, Denies spasticity, Denies syncope, Denies tic, Denies tingling, Denies transient paralysis, Denies tremors, Denies vertigo, Denies weakness, Denies visual changes Psychiatric: Reports as per HPI, Reports sleep disturbances Endocrine: Reports as per HPI, Reports fatigue, Reports palpitations Hematologic/Lymphatic: Reports as per HPI Allergic/Immunologic: Reports as per HPI, Reports wheezing, Denies angioedema Objective - Vital Signs Vital signs: Vital Signs Temp 98.2 F 09/03/20 12:00 Pulse 81 09/03/20 12:00 Resp 16 09/03/20 12:00 BP 119/68 09/03/20 12:00 Pulse Ox 93 L 09/03/20 12:00 Intake & Output 09/02/20 09/03/20 09/03/20 18:59 06:59 18:59 Intake Total 470 560 Output Total 1800 2540 1365 Balance -1330 -2540 -805 Weight 159.5 kg Intake: IV 50 Oral 420 560 Output: Urine 1800 2540 1365 Other: Voiding Method Urinal Urinal # Voids 1 1 - Constitutional General appearance: Present: cooperative, no acute distress - EENT Eyes: Present: EOMI, PERRLA, normal appearance - Neck Carotids: bilateral: upstroke normal - Respiratory Respiratory: bilateral: CTA, negative: diminished, dullness - Cardiovascular Rhythm: regular Heart sounds: normal: S1, S2 Abnormal Heart Sounds: Present: systolic murmur. Absent: diastolic murmur, rub, S3 Gallop, S4 Gallop, click, other - Peripheral edema leg Peripheral Edema: bilateral: 2+ - Gastrointestinal General gastrointestinal: Present: normal bowel sounds, scaphoid - Integumentary Integumentary: Present: normal, normal turgor - Neurologic Neurologic: Present: CNII-XII intact - Musculoskeletal Musculoskeletal: Present: gait normal, strength equal bilaterally - Psychiatric Psychiatric: Present: A&O x's 3, appropriate affect - Labs CBC & Chem 7: 09/01/20 12:52 09/03/20 08:03 Labs: Abnormal Lab Results - Last 24 Hours (Table) 09/02/20 09/02/20 09/03/20 Range/Units 16:31 20:16 05:54 Chloride (98-107) mmol/L Carbon Dioxide (22-30) mmol/L Glucose (74-99) mg/dL POC Glucose (mg/dL) 160 H 285 H 195 H (75-99) mg/dL 09/03/20 09/03/20 Range/Units 08:03 12:05 Chloride 94 L (98-107) mmol/L Carbon Dioxide 38 H (22-30) mmol/L Glucose 229 H (74-99) mg/dL POC Glucose (mg/dL) 221 H (75-99) mg/dL Assessment and Plan Plan: 1. Acute diastolic CHF, with persistent atrial flutter, requiring EVA with cardioversion, Dr. Sapp on 09/02/2020, electrolytes will be followed, patient's on AEliquis and Coreg 2. Acute purulent on chronic bronchitis with bronchospasm, no pneumonia noted on /chest x-ray. Consult with pulmonary medicine appreciated. Continue DuoNeb treatments 4 times daily and every 4 hours as needed, Pulmicort 1 mg twice daily, Levaquin 750 mg daily Symbicort 160 on maintenance prednisone 5 mg daily 2. obstructive sleep apnea. Sleep machine to be designated by pulmonary, on discharge, device referral is in progress, device to arrive expeditiously soon 3. History of atrial flutter. Continue eliquis 5 mg twice daily. 4. Hypertension. Continue Coreg 12.5 mg at bedtime, hydrochlorothiazide 25 mg daily, Benicar 20 mg daily. 5. Hyperlipidemia. Continue Lipitor 40 mg at bedtime. 6. Diabetes mellitus type 2. Patient was on tuojeo 80 units daily Bydureon 2 mg every , NovoLog scale before meals and at bedtime, patient started on metformin 1000 mg twice daily. However sugars are in the low 100, Tuojeo and Bydureon is on hold currently on a scale blood sugars needs to be a chested, restart Levemir 8 units, 2 replaced to replace tuojeo 7. Seasonal ALLERGIES. Claritin 10 mg daily, Singulair 10 mg at bedtime. 8. Suspected GERD and GI prophylaxis. Protonix 40 mg daily. 9. DVT prophylaxis. Heparin subcu.
[2020-09-03 16:57] LABS: Glucose,Whole Blood 239 mg/dL (75-99)
[2020-09-03 20:08] LABS: Glucose,Whole Blood 240 mg/dL (75-99)
[2020-09-03] MEDS: INSULIN DETEMIR (LEVEMIR) 100 UNIT/ML SYR SQ SCH (20:46)
[2020-09-03] MEDS: MAGNESIUM OXIDE 400 MG TAB PO SCH (20:46)
[2020-09-03] MEDS: ATORVASTATIN 40 MG TAB PO SCH (20:46)
[2020-09-04 05:57] LABS: Glucose,Whole Blood 112 mg/dL (75-99)
[2020-09-04] MEDS: INSULIN ASPART (NovoLOG) 100 UNIT/ML VIAL SQ SCH ×4 (06:13→21:00)
[2020-09-04] MEDS: carvediloL 12.5 MG TAB PO SCH ×2 (06:38→17:03)
--- NOTE | 2020-09-04 07:14 | XR ---
EXAMINATION TYPE: XR chest 1V portable DATE OF EXAM: 09/04/2020 CLINICAL HISTORY: Difficulty breathing and CHF progress study. TECHNIQUE: Single AP portable upright view of the chest is obtained. COMPARISON: Chest x-ray from 3 days earlier and older studies FINDINGS: Persistent cardiomegaly with mild interstitial edema. No new focal airspace opacity, pleur al effusion, or pneumothorax. Postsurgical change of bilateral shoulders partially imaged. IMPRESSION: Correlate for CHF exacerbation, Cardiomegaly with mild interstitial edema remains present . No significant change from most recent x-ray.
[2020-09-04] MEDS: FUROSEMIDE 10 MG/ML 4 ML VIAL IV SCH ×3 (08:12→23:03)
[2020-09-04] MEDS: MULTIVITAMINS, THERA 1 EACH TAB PO SCH (08:13)
[2020-09-04] MEDS: metFORMIN 500 MG TAB PO SCH ×2 (08:13→20:59)
[2020-09-04] MEDS: LEVOFLOXACIN 750 MG TAB PO SCH (08:13)
[2020-09-04] MEDS: APIXABAN 5 MG TAB PO SCH ×2 (08:13→20:59)
[2020-09-04] MEDS: predniSONE 5 MG TAB PO SCH (08:13)
[2020-09-04] MEDS: LOSARTAN 50 MG TAB PO SCH (08:13)
[2020-09-04] MEDS: IPRATROPIUM-ALBUTEROL 3 ML NEB INHALATION SCH ×4 (08:14→21:33)
[2020-09-04] MEDS: SYMBICORT 160-4.5 MCG INHALER INHALATION SCH ×2 (08:14→21:33)
[2020-09-04 09:04] LABS: African American GFR (CKD) >90 (>60 ml/min/1.73 sqM); Anion Gap 7 mmol/L; Blood Urea Nitrogen 20 mg/dL (9-20); Calcium 8.7 mg/dL (8.4-10.2); Carbon Dioxide 38 mmol/L (22-30); Chloride 93 mmol/L (98-107); Glucose 171 mg/dL (74-99); Non-African American GFR(CKD) >90 (>60 ml/min/1.73 sqM); Sodium 138 mmol/L (137-145)
--- NOTE | 2020-09-04 09:36 | P.PN ---
Subjective Progress Note Date: 09/04/20 This is a 70-year-old morbidly obese male patient who is coming in to the hospital because of worsening shortness of breath, cough, congestion and mucus production. The patient is quite short of breath during activities of daily today life. Since his long-term, and over the past 10 years, the patient has gained more than 100 pounds. Currently carries a BMI of 52.7. He is a nonsmoker. He has severe obstructive sleep apnea and based on a recent sleep study, the patient had an AHI of 86.7 and he also had severe nocturnal oxygen desaturation with a minimum pulse ox was low at 34% and the patient spent approximately 70% of the sleep time at a pulse ox of less than 90%. History was extensively fragmented. The patient is scheduled to undergo a CPAP titration at a later stage. He is also utilizing oxygen at baseline at 2 L due to chronic hypoxic respiratory failure. He is got multiple other medical problems and comorbidities including diabetes mellitus, hyperlipidemia, and prostate disease, chronic A. fib/flutter. Based on our records, the patient has been utilizing a nebulizer at home. He has been utilizing Symbicort 2 puffs twice a day, DuoNeb nebulized treatments around the clock, along with prednisone 5 mg on a daily basis. He has been also using dextromethorphan for cough and congestion. Note that the patient has also received several courses of antibiotics and steroids o n outpatient basis through his primary care physician and through our office. Based on pulmonary function test is not available at this point in time. His previous echo cardiac exam is shown a preserved LV function with an ejection fraction of about 70%. He has myik-yl-kuaceowg degree of pulmonary hypertension with a PA pressure of 40. No valvular abnormalities. CTA of the chest showed clear lungs from 05/10/2020. He has been on long-term articulation for A. fib/flutter and the patient has no history of pulmonary embolism. The workup thus far shows chronic hypoxic and hypercapnic respiratory failure room air blood gas that showed a pH of 7.44 with a pCO2 of 56 and pO2 of 66. The patient had normal renal function. The patient normal electrolytes. Troponin 1 is been negative. ProBNP level is at 288. COVID-19 testing is been negative. The white cell count of 7.4 with a hemoglobin of 15.4 and platelets of 203. Normal coagulation profile. Chest x-ray showing pulmonary vessel congestion/interstitial edema. 09/03/2020, the patient's coughing has dried up significantly and is not producing much of mucus. No fever. No chills. Is on Levaquin. He is also on 5 mg of prednisone a daily basis. No other significant events overnight. He is on Symbicort. Is on DuoNeb nebulized treatments around the clock. He remains on long-term medical condition with Eliquis. There was need a CPAP titration regarding his severe symptomatic obstructive sleep apnea. No signs of any fluid overload. on today's evaluation of 09/04/2020 the patient remains a negative fluid balance of 3.8 L. His chest x-ray from today showing some mild pulmonary vascular congestion. His mucous production is improved. He remains on Levaquin. He remains also on Lasix 40 mg IV every 8 hours. Less short of breath. Mucus production is improved. No fever or chills. No other new complaints otherwise. Clinically improving. Objective - Vital Signs Vital signs: Vital Signs Temp 97.9 F 09/04/20 08:00 Pulse 76 09/04/20 08:23 Resp 18 09/04/20 08:00 BP 121/72 09/04/20 08:00 Pulse Ox 94 L 09/04/20 08:00 Intake & Output 09/03/20 09/04/20 09/04/20 18:59 06:59 18:59 Intake Total 1800 240 Output Total 1365 2100 Balance 435 -2100 240 Weight 154 kg Intake: IV 500 Invasive Line 1 500 Oral 1300 240 Output: Urine 1365 2100 Other: Voiding Method Urinal Urinal # Voids 1 - Exam CONSTITUTIONAL: No apparent distress. Head exam was generally normal. There was no scleral icterus or corneal arcus. Mucous membranes were moist. Neck was supple and without jugular venous distension, thyromegaly, or carotid bruits. Carotids were easily palpable bilaterally. There was no adenopathy. Significant crowding of posterior pharynx with able lymphatic less for CHEST EXAMINATION: Lungs sounds are diminished and there is scattered rhonchi heard throughout the lung moore bilaterally HEART EXAMINATION: Irregular consistent with atrial fibrillation/flutter, irregular S1, S2 heard. Systolic ejection murmur at the base, no gallops or rub. ABDOMEN: Soft, nontender. Positive bowel sounds. EXTREMITIES: 1+ peripheral pulses, 3+ bilateral lower extremity pitting edema and no calf tenderness. NEUROLOGIC EXAMINATION: Patient is awake, alert - Labs CBC & Chem 7: 09/01/20 12:52 09/04/20 07:52 Labs: Abnormal Lab Results - Last 24 Hours (Table) 09/03/20 09/03/20 09/03/20 Range/Units 12:05 16:56 20:07 Chloride (98-107) mmol/L Carbon Dioxide (22-30) mmol/L Glucose (74-99) mg/dL POC Glucose (mg/dL) 221 H 239 H 240 H (75-99) mg/dL 09/04/20 09/04/20 Range/Units 05:56 07:52 Chloride 93 L (98-107) mmol/L Carbon Dioxide 38 H (22-30) mmol/L Glucose 171 H (74-99) mg/dL POC Glucose (mg/dL) 112 H (75-99) mg/dL Assessment and Plan Plan: 1 shortness of breath, multifactorial. The patient has chronic respiratory insufficiency in addition to chronic hypoxic and hypercapnic respiratory failure due to obstructive sleep apnea/obesity hypoventilation syndrome. Nevertheless, there are silent symptoms of ongoing tracheal bronchitis with increased congestion cough and mucus production. COPD is doubtful. Previous CAT scan of the chest that showed no evidence of any lung abnormalities in the lungs were essentially within normal limits. No evidence of any pulmonary embolism. Patient has been on long-term anticoagulation. No obvious signs of decompensated heart failure. The patient has a low BNP level. 2 severe obstructive sleep apnea, AHI of 86 associated with severe nocturnal oxygen desaturation. 3 obesity hypoventilation syndrome with chronic hypercapnic respiratory failure 4 chronic hypoxic respiratory failure 5 morbid obesity with BMI 52.7 6 chronic atrial fibrillation/flutter 7 preserved LV function with mild hypertension secondary to above 8 hypertension 9 hyperlipidemia 10 diabetes mellitus 11 chronic prostate disease Plan clinically much improvedshe is a negative fluid balance of 3.8 L. Continue di uretics for another 24 hours. His lower extremity edema is improving. Continue Levaquin Continue DuoNeb nebulized treatments around the clock/ Symbicort Continue deterioration with Eliquis 5 mg by mouth twice a day Resume prednisone 5 mg by mouth daily. No need for higher dose of steroids at this point in time Cardiology consultation We'll continue to follow, Will need a CPAP titration to be done on outpatient basis
[2020-09-04 12:01] LABS: Glucose,Whole Blood 171 mg/dL (75-99)
--- NOTE | 2020-09-04 13:39 | P.PN ---
Subjective Progress Note Date: 09/04/20 HISTORY OF PRESENT ILLNESS: This is a pleasant 70-year-old male past medical history significant for chronic persistent atrial fibrillation on long-term anticoagulation, sleep apnea, hypertension, dyslipidemia, diabetes mellitus and morbid obesity. He follows in the office with Dr. Sapp. We have been asked to see in consultation for heart failure. Continued to the hospital with symptoms of worsening shortness of breath. He states this is been going on for essentially the previous one year. He states with minimal activity he becomes short of breath. He can no longer golf and walk the course that he used to due to exertional shortness of breath. He is unable to perform his activities of daily living without having to take frequent breaks. He states when he starts getting short of breath he starts coughing and he cannot catch his breath. He has followed with the nonprofit fundraiser and states over the course of the previous year he has been tried on many courses of antibiotics and steroids which to seem to help but the relief only lasts for about 2 weeks and then was returned. The last time he saw Dr. Sapp in the office was October 2019 and at that time he was recommended to undergo a EVA cardioversion. The patient states he has been unable to make it back to the office due to his symptoms of shortness of breath. Most recent echocardiogram obtained April 2020 revealed severe concentric LVH, hyperdynamic LV systolic function with ejection fraction greater than 70%, mildly thickened aortic leaflets with a mean gradient of 8 mmHg, mild TR and mi ld pulmonary hypertension with an RVSP of 40 mmHg. patient underwent EVA with elective cardioversion yesterday today remains in a normal sinus rhythm. Overall he continues to have a cough however the patient states it significantly improved from previous. Blood pressure 112/60 with a heart rate in the 70s, 94% on 2 L. Sodium 137, potassium 3.8, BUN 20, creatinine 0.7. 09/04/2020 Patient is status post cardioversion with Dr. Price. Patient is maintaining sinus mechanism on telemetry. Patient denies chest pain or pressure. He denies shortness of breath. She continues to have some lower extremity edema although he states it is improving. He remains on IV Lasix. PHYSICAL EXAM: VITAL SIGNS: Reviewed. GENERAL: Well-developed in no acute distress. NECK: Supple. No JVD or thyromegaly LUNGS: Respirations even and unlabored. Lungs diminished bilaterally. HEART: Regular rate and rhythm. S1 and S2 heard. Systolic murmur noted EXTREMITIES: Normal range of motion. No clubbing or cyanosis. Peripheral pulses intact. 2+ bilateral lower extremity edema ASSESSMENT: Chronic persistent atrial fibrillation, atypical flutter, status post EVA and cardioversion, currently maintaining sinus mechanism Acute exacerbation of diastolic congestive heart failure Hypertension Hyperlipidemia Diabetes mellitus Morbid obesity PLAN: Continue current cardiac medications Continue IV Lasix for another 24 hours secondary to lower extremity edema. Reassess tomorrow Monitor kidney function Continue telemetry monitoring Further recommendations pending patient's course Nurse practitioner note has been reviewed by physician. Signing provider agrees with the documented findings, assessment, and plan of care. Objective - Vital Signs Vital signs: Vital Signs Temp 97.8 F 09/04/20 12:00 Pulse 82 09/04/20 12:00 Resp 18 09/04/20 12:50 BP 116/62 09/04/20 12:00 Pulse Ox 93 L 09/04/20 12:00 Intake & Output 09/03/20 09/04/20 09/04/20 18:59 06:59 18:59 Intake Total 1800 240 Output Total 1365 2100 800 Balance 435 -2100 -560 Weight 154 kg Intake: IV 500 Invasive Line 1 500 Oral 1300 240 Output: Urine 1365 2100 800 Other: Voiding Method Urinal Urinal # Voids 1 - Labs CBC & Chem 7: 09/01/20 12:52 09/04/20 07:52 Labs: Abnormal Lab Results - Last 24 Hours (Table) 09/03/20 09/03/20 09/04/20 Range/Units 16:56 20:07 05:56 Chloride (98-107) mmol/L Carbon Dioxide (22-30) mmol/L Glucose (74-99) mg/dL POC Glucose (mg/dL) 239 H 240 H 112 H (75-99) mg/dL 09/04/20 09/04/20 Range/Units 07:52 12:00 Chloride 93 L (98-107) mmol/L Carbon Dioxide 38 H (22-30) mmol/L Glucose 171 H (74-99) mg/dL POC Glucose (mg/dL) 171 H (75-99) mg/dL
--- NOTE | 2020-09-04 15:54 | P.PN ---
Subjective Progress Note Date: 09/04/20 This is a 70-year-old male patient of Dr. Lemos and Dr. Galloway with past medical history of diabetes mellitus type 2, hypertension, hyperlipidemia, suspected obstructive sleep apnea, history of atrial flutter on eliquis. He complains of cough and shortness of breath, for the past 4 weeks, for which she was managed by Dr. Gonzalez and the PCP, 5 visits over the past 4 weeks, to include an antibiotic, oral steroids, rescue inhalers and steroid inhalers, he does have purulence with a cough, increasing lower leg edema, shortness of breath and dyspnea on exertion, and palpitations. He does have PND, and orthopnea, and was subsequently seen in emergency room for worsening symptoms, and was found to be in congestive heart failure, with purulent tracheal bronchitis with bronchospasm. Echocardiogram was 60 obtained April 2020, shows severe concentric LVH, ejection fraction greater than 70%, right ventricular systolic pressure 40, mild TR, mild pulmonary hypertension, mildly thickened aortic valve leaflets with mean gradient of 8, troponin negative 1, NT proBNP of 288, patient is on a eliquis Coreg hydrochlorothiazide, and is currently in the cardiac lab, for EVA cardioversion, 40 shortness of breath. EKG showed incomplete right bundle branch block, with underlying atrial flutter controlled rate, chest x-ray showed venous congestion. On the interim, he had a sleep apnea machine, ordered by pulmonary, for which he stopped breathing 50 times in one hour, AHI of 50, for which CPAP machine was ordered by Dr. Reyez, and this will be expedited EVA performed, to evaluate for left atrial appendage thrombus, 09/03: Patient sitting, noted to have edema, bilateral legs and highs, no shortness of breath during conversation, has some dyspnea on exertion, still has some cough, BNP is normal, EVA was performed 09/02/2020, to look for left lateral appendage thrombus, currently it was negative for any thrombus, has normal right ventricular dimension and systolic function, aortic sclerosis with mild aortic insufficiency, thickened mitral valve with mild MR, EF documented to be within normal limits, have mild concentric LVH. Chest patient is currently on IV Lasix 40 mg every 8 hours, he is on oral Levaquin, chronic prednisone 5 mg daily, Symbicort, and DuoNeb around the clock. There was no change in [place], no signs of active bleeding at this time, Dr. Reyez has evaluated the patient, with plans for keeping IV Lasix for the next 24 hours, patient's anticipated to be discharged tomorrow fper other services. Diabetes medications are readjusted today, he already took his Bydureon, we are going to start Levemir 80 units, to replace his tuojeo from home 09/04: Patient is still kept For IV Lasix for edema,, plan for discharge tomorrow, patient has productive cough with whitish sputum, sputum was collected for culture, on IV Levaquin, has oral candidal changes in the tongue, clotrimazole started, patient's chronically on 5 minute gram prednisone, blood sugars between 117-240 families at bedside, nonlabored breathing, O2 sats 93% room air, blood pressure 116/62, no fever, no chest pain. Anticipate discharge in the morning Review of Systems Constitutional: Reports as per HPI, Denies anorexia, Denies chills, Denies chronic headaches, Denies chronic pain, Denies daytime sleepiness, Denies fatigue, Denies fever, Denies lethargy, Denies malaise, Denies night sweats, Denies poor appetite, Denies sweats, Denies weakness, Denies weight gain, Denies weight loss Ears, nose, mouth and throat: Reports as per HPI Cardiovascular: Reports decreased exercise tolerance, Reports dyspnea on exertion, Reports edema, Reports irregular heart beat, Reports palpitations Respiratory: Reports cough, Reports cough with sputum, Reports dyspnea, Reports sleep apnea, Reports snoring Gastrointestinal: Reports as per HPI Integumentary: Reports as per HPI, Denies acne, Denies boils, Denies brittle nails, Denies change in hair/nails, Denies color changes, Denies darkening of skin, Denies depigmentation, Denies dryness, Denies foot/leg ulcers, Denies growths, Denies hirsutism, Denies lesions, Denies onychomycosis, Denies pruritus, Denies rash, Denies sores, Denies striae, Denies unusual bruising, Denies wounds Neurological: Reports as per HPI, Denies aphasia, Denies ataxia, Denies balance difficulties, Denies burning pain, Denies change in mentation, Denies change in smell/taste, Denies change in speech, Denies confusion, Denies convulsions, Denies double vision, Denies gait dysfunction, Denies head injury, Denies headaches, Denies hearing difficulties, Denies lack of coordination, Denies loss of vision, Denies memory loss, Denies migraines, Denies motor disturbance, Denies numbness, Denies paralysis, Denies paresthesias, Denies seizures, Denies sensory deficit, Denies spasticity, Denies syncope, Denies tic, Denies tingling, Denies transient paralysis, Denies tremors, Denies vertigo, Denies weakness, Denies visual changes Psychiatric: Reports as per HPI, Reports sleep disturbances Endocrine: Reports as per HPI, Reports fatigue, Reports palpitations Hematologic/Lymphatic: Reports as per HPI Allergic/Immunologic: Reports as per HPI, Reports wheezing, Denies angioedema Objective - Vital Signs Vital signs: Vital Signs Temp 97.8 F 09/04/20 12:00 Pulse 80 09/04/20 15:38 Resp 18 09/04/20 12:50 BP 116/62 09/04/20 12:00 Pulse Ox 93 L 09/04/20 12:00 Intake & Output 09/03/20 09/04/20 09/04/20 18:59 06:59 18:59 Intake Total 1800 240 Output Total 1365 2100 800 Balance 435 -2100 -560 Weight 154 kg Intake: IV 500 Invasive Line 1 500 Oral 1300 240 Output: Urine 1365 2100 800 Other: Voiding Method Urinal Urinal # Voids 1 - Constitutional General appearance: Present: cooperative, no acute distress - EENT Eyes: Present: EOMI, PERRLA, dentition normal - Neck Neck: Present: normal ROM - Respiratory Respiratory: bilateral: CTA, negative: diminished, dullness, rales, rhonchi, wheezing - Cardiovascular Rhythm: regular Heart sounds: normal: S1, S2 Abnormal Heart Sounds: Absent: systolic murmur, diastolic murmur, rub, S3 Gallop, S4 Gallop, click, other - Gastrointestinal General gastrointestinal: Present: normal bowel sounds, soft - Integumentary Integumentary: Present: decreased turgor, normal - Neurologic Neurologic: Present: CNII-XII intact - Musculoskeletal Musculoskeletal: Present: gait normal, strength equal bilaterally - Psychiatric Psychiatric: Present: A&O x's 3 - Labs CBC & Chem 7: 09/01/20 12:52 09/04/20 07:52 Labs: Abnormal Lab Results - Last 24 Hours (Table) 09/03/20 09/03/20 09/04/20 Range/Units 16:56 20:07 05:56 Chloride (98-107) mmol/L Carbon Dioxide (22-30) mmol/L Glucose (74-99) mg/dL POC Glucose (mg/dL) 239 H 240 H 112 H (75-99) mg/dL 09/04/20 09/04/20 Range/Units 07:52 12:00 Chloride 93 L (98-107) mmol/L Carbon Dioxide 38 H (22-30) mmol/L Glucose 171 H (74-99) mg/dL POC Glucose (mg/dL) 171 H (75-99) mg/dL Assessment and Plan Plan: 1. Acute diastolic CHF, with persistent atrial flutter, requiring EVA with cardioversion, Dr. Sapp on 09/02/2020, electrolytes will be followed, patient's on AEliquis and Coreg 2. Acute purulent on chronic bronchitis with bronchospasm, no pneumonia noted on /chest x-ray. Consult with pulmonary medicine appreciated. Continue DuoNeb treatments 4 times daily and every 4 hours as needed, Pulmicort 1 mg twice daily, Levaquin 750 mg daily Symbicort 160 on maintenance prednisone 5 mg daily 2. obstructive sleep apnea. Sleep machine to be designated by pulmonary, on discharge, device referral is in progress, device to arrive expeditiously soon 3. History of atrial flutter. Continue eliquis 5 mg twice daily. 4. Hypertension. Continue Coreg 12.5 mg at bedtime, hydrochlorothiazide 25 mg daily, Benicar 20 mg daily. 5. Hyperlipidemia. Continue Lipitor 40 mg at bedtime. 6. Diabetes mellitus type 2. Patient was on tuojeo 80 units daily Bydureon 2 mg every , NovoLog scale before meals and at bedtime, patient started on metformin 1000 mg twice daily. However sugars are in the low 100, Tuojeo and Bydureon is on hold currently on a scale blood sugars needs to be a chested, restart Levemir 8 units, 2 replaced to replace tuojeo 7. Seasonal ALLERGIES. Claritin 10 mg daily, Singulair 10 mg at bedtime. 8. Oral mona, clotrimazole toche started 8. Suspected GERD and GI prophylaxis. Protonix 40 mg daily. 9. DVT prophylaxis. Heparin subcu.
[2020-09-04 16:56] LABS: Glucose,Whole Blood 169 mg/dL (75-99)
[2020-09-04] MEDS: CLOTRIMAZOLE TROCHE 10 MG TROCHE MUCOUS MEM SCH ×3 (17:02→23:03)
[2020-09-04 20:55] LABS: Glucose,Whole Blood 243 mg/dL (75-99)
[2020-09-04] MEDS: ATORVASTATIN 40 MG TAB PO SCH (20:59)
[2020-09-04] MEDS: MAGNESIUM OXIDE 400 MG TAB PO SCH (20:59)
[2020-09-04] MEDS: INSULIN DETEMIR (LEVEMIR) 100 UNIT/ML SYR SQ SCH (21:00)
[2020-09-05 06:19] LABS: Glucose,Whole Blood 108 mg/dL (75-99)
[2020-09-05] MEDS: INSULIN ASPART (NovoLOG) 100 UNIT/ML VIAL SQ SCH ×4 (06:25→20:42)
[2020-09-05] MEDS: CLOTRIMAZOLE TROCHE 10 MG TROCHE MUCOUS MEM SCH ×5 (06:31→23:15)
[2020-09-05] MEDS: carvediloL 12.5 MG TAB PO SCH ×2 (06:31→17:00)
[2020-09-05] MEDS: IPRATROPIUM-ALBUTEROL 3 ML NEB INHALATION SCH ×4 (07:50→20:46)
[2020-09-05] MEDS: SYMBICORT 160-4.5 MCG INHALER INHALATION SCH ×2 (07:50→20:46)
[2020-09-05] MEDS: APIXABAN 5 MG TAB PO SCH ×2 (09:02→20:42)
[2020-09-05] MEDS: FUROSEMIDE 10 MG/ML 4 ML VIAL IV SCH ×3 (09:02→23:15)
[2020-09-05] MEDS: predniSONE 5 MG TAB PO SCH (09:02)
[2020-09-05] MEDS: MULTIVITAMINS, THERA 1 EACH TAB PO SCH (09:02)
[2020-09-05] MEDS: LEVOFLOXACIN 750 MG TAB PO SCH (09:02)
[2020-09-05] MEDS: metFORMIN 500 MG TAB PO SCH ×2 (09:02→20:42)
[2020-09-05] MEDS: LOSARTAN 50 MG TAB PO SCH (09:02)
[2020-09-05 09:26] LABS: Basophils % (A) 0 %; Eosinophils # (A) 0.2 k/uL (0-0.7); Eosinophils % (A) 3 %; HCT 49.1 % (39.0-53.0); HGB 15.9 gm/dL (13.0-17.5); Lymphocytes # (A) 1.2 k/uL (1.0-4.8); Lymphocytes % (A) 16 %; MCH 29.2 pg (25.0-35.0); MCHC 32.4 g/dL (31.0-37.0); Mean Platelet Volume 7.3; Monocytes # (A) 0.7 k/uL (0-1.0); Monocytes % (A) 10 %; Neutrophils # (A) 4.8 k/uL (1.3-7.7); Neutrophils % (A) 68 %; Platelet Count 190 k/uL (150-450); RBC 5.45 m/uL (4.30-5.90); RDW 13.9 % (11.5-15.5)
[2020-09-05 09:42] LABS: African American GFR (CKD) >90 (>60 ml/min/1.73 sqM); Blood Urea Nitrogen 22 mg/dL (9-20); Calcium 8.7 mg/dL (8.4-10.2); Chloride 92 mmol/L (98-107); Glucose 179 mg/dL (74-99); Non-African American GFR(CKD) >90 (>60 ml/min/1.73 sqM); Potassium 3.6 mmol/L (3.5-5.1); Sodium 139 mmol/L (137-145)
[2020-09-05 09:49] LABS: Anion Gap 10 mmol/L; Carbon Dioxide 37 mmol/L (22-30)
[2020-09-05] MEDS: metOLazone 2.5 MG TAB PO SCH (10:13)
--- NOTE | 2020-09-05 10:18 | P.PN ---
Subjective HISTORY OF PRESENTING ILLNESS This is a pleasant 70-year-old male past medical history significant for chronic persistent atrial fibrillation on long-term anticoagulation, sleep apnea, hypertension, dyslipidemia, diabetes mellitus and morbid obesity. He follows in the office with Dr. Sapp. We have been asked to see in consultation for heart failure. Continued to the hospital with symptoms of worsening shortness of breath. He states this is been going on for essentially the previous one year. He states with minimal activity he becomes short of breath. He can no longer golf and walk the course that he used to due to exertional shortness of breath. He is unable to perform his activities of daily living without having to take frequent breaks. He states when he starts getting short of breath he starts coughing and he cannot catch his breath. 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 The last time he saw Dr. Sapp in the office was October 2019 and at that time he was recommended to undergo a EVA cardioversion. The patient states he has been unable to make it back to the office due to his symptoms of shortness of breath. On admission here to the hospital today he underwent an EKG which revealed incomplete right bundle branch block with underlying atrial flutter with controlled rate. Chest x-ray reveals venous congestion. Telemetry tracings reveal typical atrial flutter with controlled ventricular rates. Laboratory data reviewed, CBC unremarkable, sodium 139, potassium 3.9, creatinine 0.7, magnesium 1.9, cardiac enzymes negative 1 and an T proBNP 288. Current daily cardiac medications include Eliquis 5 mg twice a day, atorvastatin 40 mg daily, Coreg 12.5 mg twice a day and hydrochlorothiazide 50 mg daily. Most recent echocardiogram obtained April 2020 revealed severe concentric LVH, hyperdynamic LV systolic function with ejection fraction greater than 70%, mildly thickened aortic leaflets with a mean gradient of 8 mmHg, mild TR and mild pulmonary hypertension with an RVSP of 40 mmHg. 09/05/2020 Pt seen and examined sitting up in recliner in no acute distress. He states overall his breathing has improved since admission, however not entirely back to normal. He still feels short of breath when he lays flat. No chest pain, dizziness or palpitations. Blood pressure 119/70 heart rate 73 afebrile and maintaining oxygen saturation on nasal cannula. Laboratory data reviewed, CBC unremarkable, sodium 139, potassium 3.6 and creatinine 0.77. Telemetry tracings indicate he is maintaining sinus mechanism with first-degree AV block. 24-hr urine output is 2.3L. PHYSICAL EXAMINATION CONSTITUTIONAL: No apparent distress. HEENT: Head is normocephalic. Pupils are equal, round. Sclerae anicteric. Mucous membranes of the mouth are moist. No JVD. No carotid bruit. CHEST EXAMINATION: Bibasilar rales, no rhonchi or wheezes. No chest wall tenderness is noted on palpation or with deep breathing. HEART EXAMINATION: Regular rate and rhythm. S1, S2 heard. Systolic ejection murmur at the base, no gallops or rub. EXTREMITIES: 2+ peripheral pulses, 3+ bilateral lower extremity pitting edema and no calf tenderness. ASSESSMENT Acute diastolic heart failure could be related to atrial flutter Atrial flutter status post cardioversion maintaining sinus rhythm Hypertension Dyslipidemia Diabetes mellitus Morbid obesity, BMI 52 PLAN Continue IV diuresis. Add Zaroxolyn 2.5 mg daily. Follow renal function and electrolytes in the morning. Nurse Practitioner note has been reviewed, I agree with a documented findings and plan of care. Patient was seen and examined. Objective - Vital Signs Vital signs: Vital Signs Temp 97.7 F 09/05/20 08:50 Pulse 73 09/05/20 08:50 Resp 18 09/05/20 08:50 BP 119/70 09/05/20 08:50 Pulse Ox 91 L 09/05/20 08:50 Intake & Output 09/04/20 09/05/20 09/05/20 18:59 06:59 18:59 Intake Total 480 240 Output Total 1600 700 Balance -1120 -700 240 Weight 151.9 kg Intake: Oral 480 240 Output: Urine 1600 700 Other: Voiding Method Urinal - Labs CBC & Chem 7: 09/05/20 08:19 09/05/20 08:19 Labs: Abnormal Lab Results - Last 24 Hours (Table) 09/04/20 09/04/20 09/04/20 Range/Units 12:00 16:54 20:44 Chloride (98-107) mmol/L Carbon Dioxide (22-30) mmol/L BUN (9-20) mg/dL Glucose (74-99) mg/dL POC Glucose (mg/dL) 171 H 169 H 243 H (75-99) mg/dL 09/05/20 09/05/20 Range/Units 06:07 08:19 Chloride 92 L (98-107) mmol/L Carbon Dioxide 37 H (22-30) mmol/L BUN 22 H (9-20) mg/dL Glucose 179 H (74-99) mg/dL POC Glucose (mg/dL) 108 H (75-99) mg/dL
[2020-09-05] MEDS ORDERED: predniSONE 20 MG TAB PO SCH (10:30)
[2020-09-05 11:46] LABS: Glucose,Whole Blood 172 mg/dL (75-99)
--- NOTE | 2020-09-05 13:01 | P.PN ---
Subjective Progress Note Date: 09/05/20 HISTORY OF PRESENT ILLNESS This is a 70-year-old male patient of Dr. Lemos and Dr. Galloway with past medical history of diabetes mellitus type 2, hypertension, hyperlip idemia, suspected obstructive sleep apnea, history of atrial flutter on eliquis. He complains of cough and shortness of breath, for the past 4 weeks, for which she was managed by Dr. Gonzalez and the PCP, 5 visits over the past 4 weeks, to include an antibiotic, oral steroids, rescue inhalers and steroid inhalers, he does have purulence with a cough, increasing lower leg edema, shortness of breath and dyspnea on exertion, and palpitations. He does have PND, and orthopnea, and was subsequently seen in emergency room for worsening symptoms, and was found to be in congestive heart failure, with purulent tracheal bronchitis with bronchospasm. Echocardiogram was 60 obtained April 2020, shows severe concentric LVH, ejection fraction greater than 70%, right ventricular systolic pressure 40, mild TR, mild pulmonary hypertension, mildly thickened aortic valve leaflets with mean gradient of 8, troponin negative 1, NT proBNP of 288, patient is on a eliquis Coreg hydrochlorothiazide, and is currently in the cardiac lab, for EVA cardioversion, 40 shortness of breath. EKG showed incomplete right bundle branch block, with underlying atrial flutter controlled rate, chest x-ray showed venous congestion. On the interim, he had a sleep apnea machine, ordered by pulmonary, for which he stopped breathing 50 times in one hour, AHI of 50, for which CPAP machine was ordered by Dr. Reyez, and this will be expedited EVA performed, to evaluate for left atrial appendage thrombus, 09/03: Patient sitting, noted to have edema, bilateral legs and highs, no shortness of breath during conversation, has some dyspnea on exertion, still has some cough, BNP is normal, EVA was performed 09/02/2020, to look for left lateral appendage thrombus, currently it was negative for any thrombus, has normal right ventricular dimension and systolic function, aortic sclerosis with mild aortic insufficiency, thickened mitral valve with mild MR, EF documented to be within normal limits, have mild concentric LVH. Chest patient is currently on IV Lasix 40 mg every 8 hours, he is on oral Levaquin, chronic prednisone 5 mg daily, Symbicort, and DuoNeb around the clock. There was no change in [place], no signs of active bleeding at this time, Dr. Reyez has evaluated the patient, with plans for keeping IV Lasix for the next 24 hours, patient's anticipated to be discharged tomorrow fper other services. Diabetes medications are readjusted today, he already took his Bydureon, we are going to start Lev taylor 80 units, to replace his tuojeo from home 09/04: Patient is still kept For IV Lasix for edema,, plan for discharge tomorrow, patient has productive cough with whitish sputum, sputum was collected for culture, on IV Levaquin, has oral candidal changes in the tongue, clotrimazole started, patient's chronically on 5 minute gram prednisone, blood sugars between 117-240 families at bedside, nonlabored breathing, O2 sats 93% room air, blood pressure 116/62, no fever, no chest pain. Anticipate discharge in the morning. 09/05: Patient continues to have cough but he states he is bringing up less sputum and it is no longer brown. He states his breathing is better. He still has lower extremity edema but he also states that this is much improved. He has lost 10 kg since admission. He is currently on IV Lasix 40 mg every 8 hours and followed by cardiology. Patient has been afebrile, heart rate 73, blood pressure 119/70, pulse ox 91% on 2 L nasal cannula. Blood sugars are running 108-243. Patient also has some wheezing for which prednisone will be increased from his baseline of 5 mg to 40 mg daily. REVIEW OF SYSTEMS Constitutional: No fever, no chills, no night sweats. No weight change. No weakness, fatigue or lethargy. No daytime sleepiness. EENT: No headache. No blurred vision or double vision, no loss of vision. No loss of Hearing, no ringing in the ears, no dizziness. No nasal drainage or congestion. No epistaxis. No sore throat. Lungs: Reports shortness of breath, reports cough, reports sputum production. Reports wheezing. Cardiovascular: No chest pain, reports lower extremity edema. No palpitations. No paroxysmal nocturnal dyspnea. No orthopnea. No lightheadedness or dizziness. No syncopal episodes. Abdominal: No abdominal pain. No nausea, vomiting. No diarrhea. No constipation. No bloody or tarry stools.. No loss of appetite. Genitourinary: No dysuria, increased frequency, urgency. No urinary retention. Musculoskeletal: No myalgias. No muscle weakness, no gait dysfunction, no frequent falls. No back pain. No neck pain. Integumentary: No wounds, no lesions. No rash or pruritus. No unusual bruising. No change in hair or nails. Neurologic: No aphasia. No facial droop. No change in mentation. No head injury. No headache. No paralysis. No paresthesia. Psychiatric: No depression. No anxiety. No mood swings. Endocrine: No abnormal blood sugars. PHYSICAL EXAMINATION Gen: This is a 70-year-old morbidly obese male. He is resting in chair and appears to be comfortable at rest. HEENT: Head is atraumatic, normocephalic. Pupils equal, round. Sclerae is anicteric. NECK: Supple. No JVD. No lymphadenopathy. No thyromegaly. LUNGS: Bilateral expiratory wheeze, diminished at the bases. No intercostal retractions. HEART: Regular rate and rhythm. Systolic ejection murmur. ABDOMEN: Soft. Bowel sounds are present. No masses. No tenderness. EXTREMITIES: 3+ bilateral pedal edema. No calf tenderness. NEUROLOGICAL: Patient is awake, alert and oriented x3. Cranial nerves 2 through 12 are grossly intact. ASSESSMENT AND PLAN 1. Acute on chronic diastolic heart failure. Cardiology consult appreciated. Continue IV Lasix 40 mg every 8 hours, monitor I&O, daily weights, renal function and electrolytes. Zaroxolyn 2.5 mg daily has been added. 2. Acute purulent tracheobronchitis with bronchospasm. Consult with pulmonary medicine appreciated. Continue DuoNeb treatments 4 times daily and every 4 hours as needed, Pulmicort 1 mg twice daily, Levaquin 750 mg daily, Symbicort twice daily, increase prednisone to 40 mg daily. 3. Persistent atrial flutter status post EVA and cardioversion with Dr. Sapp on 09/02. 4. Obstructive sleep apnea. Patient have outpatient workup completed. 5. Hypertension. Continue Coreg 0.5 mg twice daily, losartan 100 mg daily 6. Diabetes mellitus type 2. Patient was on Tuojeo 80 units daily Bydureon 2 mg every . Continue Levemir 80 units at bedtime and NovoLog scale before meals and at bedtime, patient started on metformin 1000 mg twice daily. 7. Seasonal ALLERGIES. Continue Claritin 10 mg daily, singular 10 mg at bedtime. 8. Oral mona. Continue clotrimazole. 9. Suspected gastroesophageal reflux disease and GI prophylaxis. Continue Protonix. 10. DVT prophylaxis. Heparin subcu. DISCHARGE PLAN Home Impression and plan of care have been directed as dictated by the signing physician. Tawnya Mir nurse practitioner acting as scribe for signing physician. Objective - Vital Signs Vital signs: Vital Signs Temp 97.7 F 09/05/20 08:50 Pulse 73 09/05/20 08:50 Resp 18 09/05/20 08:50 BP 119/70 09/05/20 08:50 Pulse Ox 91 L 09/05/20 08:50 Intake & Output 09/04/20 09/05/20 09/05/20 18:59 06:59 18:59 Intake Total 480 240 Output Total 1600 700 Balance -1120 -700 240 Weight 151.9 kg Intake: Oral 480 240 Output: Urine 1600 700 Other: Voiding Method Urinal - Labs CBC & Chem 7: 09/05/20 08:19 09/05/20 08:19 Labs: Abnormal Lab Results - Last 24 Hours (Table) 09/04/20 09/04/20 09/04/20 Range/Units 12:00 16:54 20:44 Chloride (98-107) mmol/L Carbon Dioxide (22-30) mmol/L BUN (9-20) mg/dL Glucose (74-99) mg/dL POC Glucose (mg/dL) 171 H 169 H 243 H (75-99) mg/dL 09/05/20 09/05/20 Range/Units 06:07 08:19 Chloride 92 L (98-107) mmol/L Carbon Dioxide 37 H (22-30) mmol/L BUN 22 H (9-20) mg/dL Glucose 179 H (74-99) mg/dL POC Glucose (mg/dL) 108 H (75-99) mg/dL
--- NOTE | 2020-09-05 14:04 | P.PN ---
Subjective Progress Note Date: 09/05/20 Principal diagnosis: Acute on chronic hypoxic and hypercapnic respiratory failure secondary to obstructive sleep apnea syndrome and obesity/hypoventilation syndrome. This is a 70-year-old morbidly obese male patient who is coming in to the hospital because of worsening shortness of breath, cough, congestion and mucus production. The patient is quite short of breath during activities of daily today life. Since his long term, and over the past 10 years, the patient has gained more than 100 pounds. Currently carries a BMI of 52.7. He is a nonsmoker. He has severe obstructive sleep apnea and based on a recent sleep study, the patient had an AHI of 86.7 and he also had severe nocturnal oxygen desaturation with a minimum pulse ox was low at 34% and the patient spent a pproximately 70% of the sleep time at a pulse ox of less than 90%. History was extensively fragmented. The patient is scheduled to undergo a CPAP titration at a later stage. He is also utilizing oxygen at baseline at 2 L due to chronic hypoxic respiratory failure. He is got multiple other medical problems and comorbidities including diabetes mellitus, hyperlipidemia, and prostate disease, chronic A. fib/flutter. Based on our records, the patient has been utilizing a nebulizer at home. He has been utilizing Symbicort 2 puffs twice a day, DuoNeb nebulized treatments around the clock, along with prednisone 5 mg on a daily basis. He has been also using dextromethorphan for cough and congestion. Note that the patient has also received several courses of antibiotics and steroids on outpatient basis through his primary care physician and through our office. Based on pulmonary function test is not available at this point in time. His previous echo cardiac exam is shown a preserved LV function with an ejection fraction of about 70%. He has [id number] degree of pulmonary hypertension with a PA pressure of 40. No valvular abnormalities. CTA of the chest showed clear lungs from 05/10/2020. He has been on long-term articulation for A. fib/flutter and the patient has no history of pulmonary embolism. The workup thus far shows chronic hypoxic and hypercapnic respiratory failure room air blood gas that showed a pH of 7.44 with a pCO2 of 56 and pO2 of 66. The patient had normal renal function. The patient normal electrolytes. Troponin 1 is been negative. ProBNP level is at 288. COVID-19 testing is been negative. The white cell count of 7.4 with a hemoglobin of 15.4 and platelets of 203. Normal coagulation profile. Chest x-ray showing pulmonary vessel congestion/interstitial edema. 09/03/2020, the patient's coughing has dried up significantly and is not producing much of mucus. No fever. No chills. Is on Levaquin. He is also on 5 mg of prednisone a daily basis. No other significant events overnight. He is on Symbicort. Is on DuoNeb nebulized treatments around the clock. He remains on long-term medical condition with Eliquis. There was need a CPAP titration regarding his severe symptomatic obstructive sleep apnea. No signs of any fluid overload. on today's evaluation of 09/04/2020 the patient remains a negative fluid balance of 3.8 L. His chest x-ray from today showing some mild pulmonary vascular congestion. His mucous production is improved. He remains on Levaquin. He remains also on Lasix 40 mg IV every 8 hours. Less short of breath. Mucus production is improved. No fever or chills. No other new complaints otherwise. Clinically improving. Patient was reevaluated today on 09/05/2020, patient is doing a bit better, breathing easier, remains on Lasix at 40 mg IV push 3 times a day, remains on Eliquis at 5 mg twice a day. He is also on Symbicort. And on DuoNeb updrafts 4 times a day and when necessary. On prednisone 40 mg by mouth daily. Patient seems to be improving since his admission a few days ago. ABC today is relatively normal lites are normal BUN is 22 creatinine 0.77. Patient is responding very well to diuretics, he is in a negative balance of over 2-1/2 L in the last couple of days, and his weight is down to 152 kg from 154 Objective - Vital Signs Vital signs: Vital Signs Temp 97.7 F 09/05/20 12:20 Pulse 70 09/05/20 12:20 Resp 18 09/05/20 12:20 BP 100/69 09/05/20 12:20 Pulse Ox 93 L 09/05/20 12:20 Intake & Output 09/04/20 09/05/20 09/05/20 18:59 06:59 18:59 Intake Total 480 480 Output Total 1600 700 900 Balance -1120 -700 -420 Weight 151.9 kg Intake: Oral 480 480 Output: Urine 1600 700 900 Other: Voiding Method Urinal - Exam Physical Exam: Revealed 70-year-old white male, obese, in no distress. Head: Atraumatic, normocephalic. HEENT:[Neck is supple.] [No neck masses.] [No thyromegaly.] [No JVD.] Mallampati class IV. Chest: [Symmetrical chest expansion. Scattered rhonchi, no wheezes noted bilaterally.] Cardiac Exam: [Irregular irregular rhythm. Normal S1 and S2., no S3 gallop, no murmur.] Abdomen: [Soft, nontender, no megaly, no rebound, no guarding, normal bowel sounds.] Extremities: [No clubbing, 2+ bipedal edema, no cyanosis.] Neurological Exam: [No focal neurologic deficit.] Oriented 3. Psychiatric: Normal mood affect and normal mental status examination. Skin: No rashes. - Labs CBC & Chem 7: 09/05/20 08:19 09/05/20 08:19 Labs: Abnormal Lab Results - Last 24 Hours (Table) 09/04/20 09/04/20 09/05/20 Range/Units 16:54 20:44 06:07 Chloride (98-107) mmol/L Carbon Dioxide (22-30) mmol/L BUN (9-20) mg/dL Glucose (74-99) mg/dL POC Glucose (mg/dL) 169 H 243 H 108 H (75-99) mg/dL 09/05/20 09/05/20 Range/Units 08:19 11:44 Chloride 92 L (98-107) mmol/L Carbon Dioxide 37 H (22-30) mmol/L BUN 22 H (9-20) mg/dL Glucose 179 H (74-99) mg/dL POC Glucose (mg/dL) 172 H (75-99) mg/dL Microbiology - Last 24 Hours (Table) 09/04/20 21:38 Gram Stain - Preliminary Sputum Sputum Culture - Preliminary Assessment and Plan Assessment: Impression: Acute on chronic hypoxic and hypercapnic respiratory failure secondary to obstructive sleep apnea/obesity hypoventilation syndrome. Acute tracheobronchitis Severe obstructive sleep apnea syndrome. Chronic hypoxic and hypercapnic respiratory failure Chronic atrial fibrillation/flutter Benign essential hypertension Type 2 diabetes Recommendation: Continue diuretics. Patient is responding well to diuresis. Cut down prednisone to 10 mg daily. Continue Eliquis 5 mg twice a day. Continue DuoNeb. Continue Levaquin. Patient will follow-up with Dr. Reyez and will likely benefit from CPAP titration on outpatient basis We will continue to follow. Possible discharge planning in the next 24-48 hours. Time with Patient: Less than 30
[2020-09-05 16:46] LABS: Glucose,Whole Blood 213 mg/dL (75-99)
[2020-09-05 19:57] LABS: Glucose,Whole Blood 406 mg/dL (75-99)
[2020-09-05] MEDS: MAGNESIUM OXIDE 400 MG TAB PO SCH (20:42)
[2020-09-05] MEDS: ATORVASTATIN 40 MG TAB PO SCH (20:42)
[2020-09-05] MEDS: INSULIN DETEMIR (LEVEMIR) 100 UNIT/ML SYR SQ SCH (20:42)
[2020-09-06 06:07] LABS: Glucose,Whole Blood 296 mg/dL (75-99)
[2020-09-06] MEDS: INSULIN ASPART (NovoLOG) 100 UNIT/ML VIAL SQ SCH ×5 (06:16→20:12)
[2020-09-06] MEDS: carvediloL 12.5 MG TAB PO SCH ×2 (06:16→17:14)
[2020-09-06] MEDS: CLOTRIMAZOLE TROCHE 10 MG TROCHE MUCOUS MEM SCH ×5 (06:16→23:06)
[2020-09-06 07:28] LABS: African American GFR (CKD) >90 (>60 ml/min/1.73 sqM); Blood Urea Nitrogen 29 mg/dL (9-20); Calcium 9.2 mg/dL (8.4-10.2); Chloride 89 mmol/L (98-107); Glucose 284 mg/dL (74-99); Non-African American GFR(CKD) 83 (>60 ml/min/1.73 sqM); Potassium 3.5 mmol/L (3.5-5.1); Sodium 138 mmol/L (137-145)
[2020-09-06 08:20] LABS: Anion Gap 10 mmol/L; Carbon Dioxide 39 mmol/L (22-30)
[2020-09-06] MEDS: IPRATROPIUM-ALBUTEROL 3 ML NEB INHALATION SCH ×4 (08:58→20:25)
[2020-09-06] MEDS: SYMBICORT 160-4.5 MCG INHALER INHALATION SCH ×2 (08:58→20:25)
[2020-09-06] MEDS ORDERED: predniSONE 10 MG TAB PO SCH (09:00)
[2020-09-06] MEDS: metFORMIN 500 MG TAB PO SCH ×2 (09:14→20:08)
[2020-09-06] MEDS: MULTIVITAMINS, THERA 1 EACH TAB PO SCH (09:14)
[2020-09-06] MEDS: APIXABAN 5 MG TAB PO SCH ×2 (09:14→20:07)
[2020-09-06] MEDS: LOSARTAN 50 MG TAB PO SCH (09:14)
[2020-09-06] MEDS: FUROSEMIDE 10 MG/ML 4 ML VIAL IV SCH ×3 (09:15→23:06)
[2020-09-06] MEDS: metOLazone 2.5 MG TAB PO SCH (09:15)
[2020-09-06] MEDS: LEVOFLOXACIN 750 MG TAB PO SCH (09:15)
[2020-09-06] MEDS: POTASSIUM CHLORIDE ER 20 MEQ TAB.ER PO SCH ×3 (11:11→16:15)
--- NOTE | 2020-09-06 11:15 | P.PN ---
Subjective HISTORY OF PRESENTING ILLNESS This is a pleasant 70-year-old male past medical history significant for chronic persistent atrial fibrillation on long-term anticoagulation, sleep apnea, hypertension, dyslipidemia, diabetes mellitus and morbid obesity. He follows in the office with Dr. Sapp. We have been asked to see in consultation for heart failure. Continued to the hospital with symptoms of worsening shortness of breath. He states this is been going on for essentially the previous one year. He states with minimal activity he becomes short of breath. He can no longer golf and walk the course that he used to due to exertional shortness of breath. He is unable to perform his activities of daily living without having to take frequent breaks. He states when he starts getting short of breath he starts coughing and he cannot catch his breath. 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 The last time he saw Dr. Sapp in the office was October 2019 and at that time he was recommended to undergo a EVA cardioversion. The patient states he has been unable to make it back to the office due to his symptoms of shortness of breath. On admission here to the hospital today he underwent an EKG which revealed incomplete right bundle branch block with underlying atrial flutter with controlled rate. Chest x-ray reveals venous congestion. Telemetry tracings reveal typical atrial flutter with controlled ventricular rates. Laboratory data reviewed, CBC unremarkable, sodium 139, potassium 3.9, creatinine 0.7, magnesium 1.9, cardiac enzymes negative 1 and an T proBNP 288. Current daily cardiac medications include Eliquis 5 mg twice a day, atorvastatin 40 mg daily, Coreg 12.5 mg twice a day and hydrochlorothiazide 50 mg daily. Most recent echocardiogram obtained April 2020 revealed severe concentric LVH, hyperdynamic LV systolic function with ejection fraction greater than 70%, mildly thickened aortic leaflets with a mean gradient of 8 mmHg, mild TR and mild pulmonary hypertension with an RVSP of 40 mmHg. 09/06/2020 Pt seen and examined sitting up in recliner in no acute distress. He states he was able to sleep through the night last night for the first time in awhile. He did have to sleep in the chair, however did get rest. He has been up using the urinal frequently. Urine output for the previous 24-hrs is 3.8L. He states his exertional dyspnea is improving but not completely resolved. He still has a dry cough with max exertion. Denies chest pain, dizziness or palpitations. Telemetry tracings reviewed. He is maintaining SR. Blood pressure 101/73 heart rate 76 afebrile and maintaining oxygen saturation on nasal cannula. Laboratory data reviewed, sodium 138, potassium 3.5, creatinine 0.94. PHYSICAL EXAMINATION CONSTITUTIONAL: No apparent distress. HEENT: Head is normocephalic. Pupils are equal, round. Sclerae anicteric. Mucous membranes of the mouth are moist. No JVD. No carotid bruit. CHEST EXAMINATION: Bibasilar rales, no rhonchi or wheezes. No chest wall tenderness is noted on palpation or with deep breathing. HEART EXAMINATION: Regular rate and rhythm. S1, S2 heard. Systolic ejection mu rmur at the base, no gallops or rub. EXTREMITIES: 2+ peripheral pulses, 3+ bilateral lower extremity pitting edema and no calf tenderness. ASSESSMENT Acute diastolic heart failure could be related to atrial flutter Atrial flutter status post cardioversion maintaining sinus rhythm Hypertension Dyslipidemia Diabetes mellitus Morbid obesity, BMI 52 PLAN Continue IV diuresis along with metolazone. Add daily potassium supplementation. Follow renal function and electrolytes in the morning. Nurse Practitioner note has been reviewed, I agree with a documented findings and plan of care. Patient was seen and examined. Objective - Vital Signs Vital signs: Vital Signs Temp 97.7 F 09/06/20 03:41 Pulse 76 09/06/20 09:14 Resp 20 09/06/20 03:41 BP 154/71 09/06/20 03:41 Pulse Ox 97 09/06/20 03:41 Intake & Output 09/05/20 09/06/20 09/06/20 18:59 06:59 18:59 Intake Total 720 222 180 Output Total 1575 2275 600 Balance -425 -4224 -240 Weight 150.5 kg Intake: Oral 720 222 180 Output: Urine 1575 2275 600 Other: Voiding Method Urinal # Bowel Movements 0 - Labs CBC & Chem 7: 09/05/20 08:19 09/06/20 06:50 Labs: Abnormal Lab Results - Last 24 Hours (Table) 09/05/20 09/05/20 09/05/20 Range/Units 08:19 11:44 16:44 Chloride 92 L (98-107) mmol/L Carbon Dioxide 37 H (22-30) mmol/L BUN 22 H (9-20) mg/dL Glucose 179 H (74-99) mg/dL POC Glucose (mg/dL) 172 H 213 H (75-99) mg/dL 09/05/20 09/06/20 09/06/20 Range/Units 19:56 06:05 06:50 Chloride 89 L (98-107) mmol/L Carbon Dioxide 39 H (22-30) mmol/L BUN 29 H (9-20) mg/dL Glucose 284 H (74-99) mg/dL POC Glucose (mg/dL) 406 H 296 H (75-99) mg/dL Microbiology - Last 24 Hours (Table) 09/04/20 21:38 Gram Stain - Preliminary Sputum Sputum Culture - Preliminary
[2020-09-06 11:47] LABS: Glucose,Whole Blood 253 mg/dL (75-99)
[2020-09-06] MEDS: guaiFENesin 600 MG TABLET.ER PO SCH ×2 (12:27→20:08)
--- NOTE | 2020-09-06 13:30 | P.PN ---
Subjective Progress Note Date: 09/06/20 Principal diagnosis: Acute on chronic hypoxic and hypercapnic respiratory failure secondary to obstructive sleep apnea syndrome and obesity/hypoventilation syndrome. This is a 70-year-old morbidly obese male patient who is coming in to the hospital because of worsening shortness of breath, cough, congestion and mucus production. The patient is quite short of breath during activities of daily today life. Since his senior living, and over the past 10 years, the patient has gained more than 100 pounds. Currently carries a BMI of 52.7. He is a nonsmoker. He has severe obstructive sleep apnea and based on a recent sleep study, the patient had an AHI of 86.7 and he also had severe nocturnal oxygen desaturation with a minimum pulse ox was low at 34% and the patient spent a pproximately 70% of the sleep time at a pulse ox of less than 90%. History was extensively fragmented. The patient is scheduled to undergo a CPAP titration at a later stage. He is also utilizing oxygen at baseline at 2 L due to chronic hypoxic respiratory failure. He is got multiple other medical problems and comorbidities including diabetes mellitus, hyperlipidemia, and prostate disease, chronic A. fib/flutter. Based on our records, the patient has been utilizing a nebulizer at home. He has been utilizing Symbicort 2 puffs twice a day, DuoNeb nebulized treatments around the clock, along with prednisone 5 mg on a daily basis. He has been also using dextromethorphan for cough and congestion. Note that the patient has also received several courses of antibiotics and steroids on outpatient basis through his primary care physician and through our office. Based on pulmonary function test is not available at this point in time. His previous echo cardiac exam is shown a preserved LV function with an ejection fraction of about 70%. He has [id number] degree of pulmonary hypertension with a PA pressure of 40. No valvular abnormalities. CTA of the chest showed clear lungs from 05/10/2020. He has been on long-term articulation for A. fib/flutter and the patient has no history of pulmonary embolism. The workup thus far shows chronic hypoxic and hypercapnic respiratory failure room air blood gas that showed a pH of 7.44 with a pCO2 of 56 and pO2 of 66. The patient had normal renal function. The patient normal electrolytes. Troponin 1 is been negative. ProBNP level is at 288. COVID-19 testing is been negative. The white cell count of 7.4 with a hemoglobin of 15.4 and platelets of 203. Normal coagulation profile. Chest x-ray showing pulmonary vessel congestion/interstitial edema. 09/03/2020, the patient's coughing has dried up significantly and is not producing much of mucus. No fever. No chills. Is on Levaquin. He is also on 5 mg of prednisone a daily basis. No other significant events overnight. He is on Symbicort. Is on DuoNeb nebulized treatments around the clock. He remains on long-term medical condition with Eliquis. There was need a CPAP titration regarding his severe symptomatic obstructive sleep apnea. No signs of any fluid overload. on today's evaluation of 09/04/2020 the patient remains a negative fluid balance of 3.8 L. His chest x-ray from today showing some mild pulmonary vascular congestion. His mucous production is improved. He remains on Levaquin. He remains also on Lasix 40 mg IV every 8 hours. Less short of breath. Mucus production is improved. No fever or chills. No other new complaints otherwise. Clinically improving. Patient was reevaluated today on 09/05/2020, patient is doing a bit better, breathing easier, remains on Lasix at 40 mg IV push 3 times a day, remains on Eliquis at 5 mg twice a day. He is also on Symbicort. And on DuoNeb updrafts 4 times a day and when necessary. On prednisone 40 mg by mouth daily. Patient seems to be improving since his admission a few days ago. ABC today is relatively normal lites are normal BUN is 22 creatinine 0.77. Patient is responding very well to diuretics, he is in a negative balance of over 2-1/2 L in the last couple of days, and his weight is down to 152 kg from 154 Reevaluated today on 09/06/2020, patient is doing better today, continues to breathe easier, remains on Lasix, remains on BiPAP as needed, he is also on Eliquis. Remains on Symbicort, patient has intermittent wheezing and cough, hence I increased his prednisone back up to 20 mg daily. Overall the patient is making significant improvement since admission. Continues to have intermittent dry cough. No chest pain, no dizziness, no palpitations, he is on 2 L nasal cannula. Labs including basic metabolic profile is normal today, blood sugar is 250 3. Objective - Vital Signs Vital signs: Vital Signs Temp 97.5 F L 09/06/20 08:00 Pulse 80 09/06/20 12:33 Resp 18 09/06/20 08:00 BP 101/73 09/06/20 08:00 Pulse Ox 95 09/06/20 08:00 Intake & Output 09/05/20 09/06/20 09/06/20 18:59 06:59 18:59 Intake Total 720 222 180 Output Total 1575 2275 1800 Balance -675 -2052622 Weight 150.5 kg Intake: Oral 720 222 180 Output: Urine 1575 2275 1800 Other: Voiding Method Urinal Urinal # Bowel Movements 0 - Exam Physical Exam: Revealed 70-year-old white male, obese, in no distress. Head: Atraumatic, normocephalic. HEENT:[Neck is supple.] [No neck masses.] [No thyromegaly.] [No JVD.] Mallampati class IV. Chest: [Symmetrical chest expansion. Minimal wheezing on forced expiratory maneuver only. Cardiac Exam: [Irregular irregular rhythm. Normal S1 and S2., no S3 gallop, no murmur.] Abdomen: [Soft, nontender, no megaly, no rebound, no guarding, normal bowel sounds.] Extremities: [No clubbing, 2+ bipedal edema, no cyanosis.] Neurological Exam: [No focal neurologic deficit.] Oriented 3. Psychiatric: Normal mood affect and normal mental status examination. Skin: No rashes. - Labs CBC & Chem 7: 09/05/20 08:19 09/06/20 06:50 Labs: Abnormal Lab Results - Last 24 Hours (Table) 09/05/20 09/05/20 09/06/20 Range/Units 16:44 19:56 06:05 Chloride (98-107) mmol/L Carbon Dioxide (22-30) mmol/L BUN (9-20) mg/dL Glucose (74-99) mg/dL POC Glucose (mg/dL) 213 H 406 H 296 H (75-99) mg/dL 09/06/20 09/06/20 Range/Units 06:50 11:45 Chloride 89 L (98-107) mmol/L Carbon Dioxide 39 H (22-30) mmol/L BUN 29 H (9-20) mg/dL Glucose 284 H (74-99) mg/dL POC Glucose (mg/dL) 253 H (75-99) mg/dL Microbiology - Last 24 Hours (Table) 09/04/20 21:38 Gram Stain - Preliminary Sputum Sputum Culture - Preliminary Assessment and Plan Assessment: Impression: Acute on chronic hypoxic and hypercapnic respiratory failure secondary to obstructive sleep apnea/obesity hypoventilation syndrome. Acute tracheobronchitis Severe obstructive sleep apnea syndrome. Chronic hypoxic and hypercapnic respiratory failure Chronic atrial fibrillation/flutter Benign essential hypertension Type 2 diabetes Recommendation: Continue diuretics. continues to improve with diuresis. Increase prednisone slightly we'll go back up to 20 mg daily Continue Eliquis 5 mg twice a day. Continue DuoNeb. Continue Levaquin. Patient will follow-up with Dr. Reyez and will likely benefit from CPAP titration on outpatient basis We will continue to follow. Consider discharge planning in the next 24 hours Time with Patient: Less than 30
--- NOTE | 2020-09-06 14:39 | P.PN ---
Subjective Progress Note Date: 09/06/20 HISTORY OF PRESENT ILLNESS This is a 70-year-old male patient of Dr. Lemos and Dr. Galloway with past medical history of diabetes mellitus type 2, hypertension, hyperlip idemia, suspected obstructive sleep apnea, history of atrial flutter on eliquis. He complains of cough and shortness of breath, for the past 4 weeks, for which she was managed by Dr. Gonzalez and the PCP, 5 visits over the past 4 weeks, to include an antibiotic, oral steroids, rescue inhalers and steroid inhalers, he does have purulence with a cough, increasing lower leg edema, shortness of breath and dyspnea on exertion, and palpitations. He does have PND, and orthopnea, and was subsequently seen in emergency room for worsening symptoms, and was found to be in congestive heart failure, with purulent tracheal bronchitis with bronchospasm. Echocardiogram was 60 obtained April 2020, shows severe concentric LVH, ejection fraction greater than 70%, right ventricular systolic pressure 40, mild TR, mild pulmonary hypertension, mildly thickened aortic valve leaflets with mean gradient of 8, troponin negative 1, NT proBNP of 288, patient is on a eliquis Coreg hydrochlorothiazide, and is currently in the cardiac lab, for EVA cardioversion, 40 shortness of breath. EKG showed incomplete right bundle branch block, with underlying atrial flutter controlled rate, chest x-ray showed venous congestion. On the interim, he had a sleep apnea machine, ordered by pulmonary, for which he stopped breathing 50 times in one hour, AHI of 50, for which CPAP machine was ordered by Dr. Reyez, and this will be expedited EVA performed, to evaluate for left atrial appendage thrombus, 09/03: Patient sitting, noted to have edema, bilateral legs and highs, no shortness of breath during conversation, has some dyspnea on exertion, still has some cough, BNP is normal, EVA was performed 09/02/2020, to look for left lateral appendage thrombus, currently it was negative for any thrombus, has normal right ventricular dimension and systolic function, aortic sclerosis with mild aortic insufficiency, thickened mitral valve with mild MR, EF documented to be within normal limits, have mild concentric LVH. Chest patient is currently on IV Lasix 40 mg every 8 hours, he is on oral Levaquin, chronic prednisone 5 mg daily, Symbicort, and DuoNeb around the clock. There was no change in [place], no signs of active bleeding at this time, Dr. Reyez has evaluated the patient, with plans for keeping IV Lasix for the next 24 hours, patient's anticipated to be discharged tomorrow fper other services. Diabetes medications are readjusted today, he already took his Bydureon, we are going to start Lev taylor 80 units, to replace his tuojeo from home 09/04: Patient is still kept For IV Lasix for edema,, plan for discharge tomorrow, patient has productive cough with whitish sputum, sputum was collected for culture, on IV Levaquin, has oral candidal changes in the tongue, clotrimazole started, patient's chronically on 5 minute gram prednisone, blood sugars between 117-240 families at bedside, nonlabored breathing, O2 sats 93% room air, blood pressure 116/62, no fever, no chest pain. Anticipate discharge in the morning. 09/05: Patient continues to have cough but he states he is bringing up less sputum and it is no longer brown. He states his breathing is better. He still has lower extremity edema but he also states that this is much improved. He has lost 10 kg since admission. He is currently on IV Lasix 40 mg every 8 hours and followed by cardiology. Patient has been afebrile, heart rate 73, blood pressure 119/70, pulse ox 91% on 2 L nasal cannula. Blood sugars are running 108-243. Patient also has some wheezing for which prednisone will be increased from his baseline of 5 mg to 40 mg daily. 09/06: Patient continues to improve slowly have some shortness of breath with activity and he states he has a cough after deep breathing. Cough is nonproductive. Pulmonary has decreased prednisone to 20 mg daily. Patient is also followed by cardiology with plan to continue IV Lasix with metolazone for another day. Anticipate possible discharge by tomorrow. Patient's weight is down 11.5 kg since admission. Repeat blood work reveals sodium 138, potassium 3.5, chloride 89, CO2 39, BUN 29 creatinine 0.94. Blood sugars are running mostly in the 200s from 253-296. Patient had 1 reading of 406. Plan to continue Levemir 80 units at bedtime and add NovoLog 5 units 3 times daily with meals. REVIEW OF SYSTEMS Constitutional: No fever, no chills, no night sweats. No weight change. No weakness, fatigue or lethargy. No daytime sleepiness. EENT: No headache. No blurred vision or double vision, no loss of vision. No loss of Hearing, no ringing in the ears, no dizziness. No nasal drainage or congestion. No epistaxis. No sore throat. Lungs: Reports shortness of breath, reports cough, reports sputum production. Reports wheezing. Cardiovascular: No chest pain, reports lower extremity edema. No palpitations. No paroxysmal nocturnal dyspnea. No orthopnea. No lightheadedness or dizziness. No syncopal episodes. Abdominal: No abdominal pain. No nausea, vomiting. No diarrhea. No constipation. No bloody or tarry stools.. No loss of appetite. Genitourinary: No dysuria, increased frequency, urgency. No urinary retention. Musculoskeletal: No myalgias. No muscle weakness, no gait dysfunction, no frequent falls. No back pain. No neck pain. Integumentary: No wounds, no lesions. No rash or pruritus. No unusual bruising. No change in hair or nails. Neurologic: No aphasia. No facial droop. No change in mentation. No head injury. No headache. No paralysis. No paresthesia. Psychiatric: No depression. No anxiety. No mood swings. Endocrine: Noted abnormal blood sugars. PHYSICAL EXAMINATION Gen: This is a 70-year-old morbidly obese male. He is resting in chair and appears to be comfortable at rest. HEENT: Head is atraumatic, normocephalic. Pupils equal, round. Sclerae is anicteric. NECK: Supple. No JVD. No lymphadenopathy. No thyromegaly. LUNGS: Bilateral expiratory wheeze, diminished at the bases. No intercostal retractions. HEART: Regular rate and rhythm. Systolic ejection murmur. ABDOMEN: Soft. Bowel sounds are present. No masses. No tenderness. EXTREMITIES: 3+ bilateral pedal edema. No calf tenderness. NEUROLOGICAL: Patient is awake, alert and oriented x3. Cranial nerves 2 through 12 are grossly intact. ASSESSMENT AND PLAN 1. Acute on chronic diastolic heart failure. Cardiology consult appreciated. Continue IV Lasix 40 mg every 8 hours, monitor I&O, daily weights, renal function and electrolytes. Zaroxolyn 2.5 mg daily. 2. Acute purulent tracheobronchitis with bronchospasm. Consult with pulmonary medicine appreciated. Continue DuoNeb treatments 4 times daily and every 4 hours as needed, Pulmicort 1 mg twice daily, Levaquin 750 mg daily, Symbicort twice daily, prednisone has been decreased to 20 mg daily. 3. Persistent atrial flutter status post EVA and cardioversion with Dr. Sapp on 09/02. 4. Obstructive sleep apnea. Patient have outpatient workup completed. 5. Hypertension. Continue Coreg 0.5 mg twice daily, losartan 100 mg daily 6. Diabetes mellitus type 2. Patient was on Tuojeo 80 units daily Bydureon 2 mg every . Continue Levemir 80 units at bedtime, add NovoLog 5 units with meals and continue NovoLog scale before meals and at bedtime, and metformin 1000 mg twice daily. 7. Seasonal ALLERGIES. Continue Claritin 10 mg daily, singular 10 mg at bedtime. 8. Oral mona. Continue clotrimazole. 9. Suspected gastroesophageal reflux disease and GI prophylaxis. Continue Protonix. 10. Chronic hypoxic respiratory failure on Home O2 at 2L n/c. 11. DVT prophylaxis. Heparin subcu. DISCHARGE PLAN Home on Saturday Impression and plan of care have been directed as dictated by the signing physician. Tawnay Mir nurse practitioner acting as scribe for signing physician. Objective - Vital Signs Vital signs: Vital Signs Temp 97.7 F 09/06/20 03:41 Pulse 76 09/06/20 09:14 Resp 20 09/06/20 03:41 BP 154/71 09/06/20 03:41 Pulse Ox 97 09/06/20 03:41 Intake & Output 09/05/20 09/06/20 09/06/20 18:59 06:59 18:59 Intake Total 720 222 180 Output Total 1575 2275 600 Balance -858 -2053 -420 Weight 150.5 kg Intake: Oral 720 222 180 Output: Urine 1575 2275 600 Other: Voiding Method Urinal # Bowel Movements 0 - Labs CBC & Chem 7: 09/05/20 08:19 09/06/20 06:50 Labs: Abnormal Lab Results - Last 24 Hours (Table) 09/05/20 09/05/20 09/05/20 Range/Units 11:44 16:44 19:56 Chloride (98-107) mmol/L Carbon Dioxide (22-30) mmol/L BUN (9-20) mg/dL Glucose (74-99) mg/dL POC Glucose (mg/dL) 172 H 213 H 406 H (75-99) mg/dL 09/06/20 09/06/20 Range/Units 06:05 06:50 Chloride 89 L (98-107) mmol/L Carbon Dioxide 39 H (22-30) mmol/L BUN 29 H (9-20) mg/dL Glucose 284 H (74-99) mg/dL POC Glucose (mg/dL) 296 H (75-99) mg/dL Microbiology - Last 24 Hours (Table) 09/04/20 21:38 Gram Stain - Preliminary Sputum Sputum Culture - Preliminary
[2020-09-06 16:47] LABS: Glucose,Whole Blood 203 mg/dL (75-99)
[2020-09-06 19:55] LABS: Glucose,Whole Blood 247 mg/dL (75-99)
[2020-09-06] MEDS: ATORVASTATIN 40 MG TAB PO SCH (20:07)
[2020-09-06] MEDS: INSULIN DETEMIR (LEVEMIR) 100 UNIT/ML SYR SQ SCH (20:08)
[2020-09-06] MEDS: MAGNESIUM OXIDE 400 MG TAB PO SCH (20:08)
[2020-09-07 00:41] LABS: Glucose,Whole Blood 148 mg/dL (75-99)
--- NOTE | 2020-09-07 02:27 | P.EN ---
A team note Activated at 12:19 AM. Arrived on the scene shortly after. Obtain history from the RN and reviewed the chart. The patient had reportedly gotten up to use the restroom bowel movement when he suddenly became unresponsive. The patient was able to maintain enough postural tone to not fall off the toilet seat. The patient's mentation gradually improved and he began answering questions within 2-3 minutes. He reported feeling lightheaded and also twisting his left ankle a few minutes prior to the incident. He denied experiencing chest discomfort or shortness of breath. Denied nausea, vomiting, abdominal pain. Upon arrival at the scene, the patient's blood pressure was 92/43, pulse 98% on 2 L, pulse 72, and respiratory rate 18. The patient was eased off the toilet seat and was sat in his chair. He reported feeling significantly better at the end of the encounter and denied active complaints aside from some left ankle pain, which he attributed to possible sprain. Repeat blood pressure was seated was 116/64. Telemetry monitoring reported no abnormal events throughout the episode. General: Non-toxic, in no acute distress, appears stated age, morbidly obese HEENT: NC/AT, anicteric sclerae, moist conjunctiva, no lid-lag, PERRLA Cardiovascular: S1/S2 wnl, no murmurs, rubs, or gallops Lungs: Clear to auscultation, normal respiratory effort, no accessory muscle use Abdominal: Soft, non-tender, non-distended, no guarding, rebound, or rigidity Skin: Warm, dry Extremities: No edema or contractures Psychiatric: Alert and oriented to person, place and time, appropriate affect Neuro: CN II-XII grossly intact, Strength 5/5 in all 4 extremities, Speech intact, Sensation to light touch grossly intact throughout Assessment/plan Near syncope suspected secondary to vasovagal versus dehydration from over diuresis -Orthostatics unremarkable -Likely vasovagal in nature while attempting to pass bowel movement -Cardiac monitoring -Strict bedrest -Fall precautions -Primary team notified -The patient may need discontinuation of IV Lasix in the IV fluid bolus if hypotension persists
[2020-09-07 06:08] LABS: Glucose,Whole Blood 181 mg/dL (75-99)
[2020-09-07] MEDS: carvediloL 12.5 MG TAB PO SCH ×2 (06:47→17:08)
[2020-09-07] MEDS: INSULIN ASPART (NovoLOG) 100 UNIT/ML VIAL SQ SCH ×7 (06:47→20:13)
[2020-09-07] MEDS: CLOTRIMAZOLE TROCHE 10 MG TROCHE MUCOUS MEM SCH ×5 (06:47→23:22)
[2020-09-07 07:27] LABS: Calcium 9.7 mg/dL (8.4-10.2); Magnesium 2.1 mg/dL (1.6-2.3); Potassium 3.3 mmol/L (3.5-5.1)
[2020-09-07] MEDS: SYMBICORT 160-4.5 MCG INHALER INHALATION SCH ×3 (07:34→19:05)
[2020-09-07] MEDS: IPRATROPIUM-ALBUTEROL 3 ML NEB INHALATION SCH ×4 (07:34→19:05)
[2020-09-07] MEDS ORDERED: POTASSIUM CHLORIDE ER 20 MEQ TAB.ER PO STA (08:29)
[2020-09-07] MEDS: LOSARTAN 50 MG TAB PO SCH (08:55)
[2020-09-07] MEDS: metFORMIN 500 MG TAB PO SCH ×2 (08:55→20:12)
[2020-09-07] MEDS: MULTIVITAMINS, THERA 1 EACH TAB PO SCH (08:55)
[2020-09-07] MEDS: guaiFENesin 600 MG TABLET.ER PO SCH ×2 (08:55→20:12)
[2020-09-07] MEDS: predniSONE 20 MG TAB PO SCH (08:55)
[2020-09-07] MEDS: POTASSIUM CHLORIDE ER 20 MEQ TAB.ER PO SCH ×2 (08:56→20:13)
[2020-09-07] MEDS: APIXABAN 5 MG TAB PO SCH ×2 (08:56→20:13)
[2020-09-07] MEDS: LEVOFLOXACIN 750 MG TAB PO SCH (08:56)
[2020-09-07] MEDS: FUROSEMIDE 80 MG TAB PO SCH (08:56)
[2020-09-07] MEDS: metOLazone 2.5 MG TAB PO SCH (08:56)
[2020-09-07] MEDS: FUROSEMIDE 10 MG/ML 4 ML VIAL IV SCH (09:00)
[2020-09-07] MEDS ORDERED: POTASSIUM CHLORIDE ER 20 MEQ TAB.ER PO SCH (09:00)
--- NOTE | 2020-09-07 10:57 | P.PN ---
Subjective HISTORY OF PRESENTING ILLNESS This is a pleasant 70-year-old male past medical history significant for chronic persistent atrial fibrillation on long-term anticoagulation, sleep apnea, hypertension, dyslipidemia, diabetes mellitus and morbid obesity. He follows in the office with Dr. Sapp. We have been asked to see in consultation for heart failure. Continued to the hospital with symptoms of worsening shortness of breath. He states this is been going on for essentially the previous one year. He states with minimal activity he becomes short of breath. He can no longer golf and walk the course that he used to due to exertional shortness of breath. He is unable to perform his activities of daily living without having to take frequent breaks. He states when he starts getting short of breath he starts coughing and he cannot catch his breath. He has followed with the freight caller and states over the course of the previous year he has been tried on many courses of antibiotics and steroids which to seem to help but the relief only lasts for about 2 weeks and then was returned. The last time he saw Dr. Sapp in the office was October 2019 and at that time he was recommended to undergo a EVA cardioversion. The patient states he has been unable to make it back to the office due to his symptoms of shortness of breath. On admission here to the hospital today he underwent an EKG which revealed incomplete right bundle branch block with underlying atrial flutter with controlled rate. Chest x-ray reveals venous congestion. Telemetry tracings reveal typical atrial flutter with controlled ventricular rates. Laboratory data reviewed, CBC unremarkable, sodium 139, potassium 3.9, creatinine 0.7, magnesium 1.9, cardiac enzymes negative 1 and an T proBNP 288. Current daily cardiac medications include Eliquis 5 mg twice a day, atorvastatin 40 mg daily, Coreg 12.5 mg twice a day and hydrochlorothiazide 50 mg daily. Most recent echocardiogram obtained April 2020 revealed severe concentric LVH, hyperdynamic LV systolic function with ejection fraction greater than 70%, mildly thickened aortic leaflets with a mean gradient of 8 mmHg, mild TR and mild pulmonary hypertension with an RVSP of 40 mmHg. 09/07/2020 Pt seen and examined sitting up in recliner in no acute distress. He was up to the bathroom last night and while walking he states he felt something "pop" in his left leg. According to event note documentation he then went to sit on the toilet and became unresponsive. He did not fall off the toilet. He started talking to staff after 2-3 minutes. Telemetry was unremarkable at that time. Blood pressures stable. No orthostatic changes noted. He denies chest pain or worsening shortness of breath. Current blood pressure 140/63 heart rate 67 afebrile and maintaining oxygen saturation on nasal cannula. Laboratory data reviewed, sodium 138, potassium 3.3, CO2 42, creatinine 1.0 and magnesium 2.1. PHYSICAL EXAMINATION CONSTITUTIONAL: No apparent distress. HEENT: Head is normocephalic. Pupils are equal, round. Sclerae anicteric. Mucous membranes of the mouth are moist. No JVD. No carotid bruit. CHEST EXAMINATION: Clear to auscultation. No chest wall tenderness is noted on palpation or with deep breathing. HEART EXAMINATION: Regular rate and rhythm. S1, S2 heard. Systolic ejection murmur at the base, no gallops or rub. EXTREMITIES: 2+ peripheral pulses, 1+ bilateral lower extremity pitting edema and no calf tenderness. ASSESSMENT Acute diastolic heart failure could be related to atrial flutter Atrial flutter status post cardioversion maintaining sinus rhythm Hypertension Dyslipidemia Diabetes mellitus Vasovagal syncope due to pain and vagal nerve stimulation while using the toilet Morbid obesity, BMI 52 PLAN Give additional dose of potassium this morning. Increase daily dosing to twice a day. Transitioned to oral diuretics, 80 mg in the morning and 40 mg in the afternoon. Continue metaxalone as previously ordered. Consider discharge this afternoon if he continues to remain stable. Follow-up in the office with Dr. Sapp upon discharge. Nurse Practitioner note has been reviewed, I agree with a documented findings and plan of care. Patient was seen and examined. Objective - Vital Signs Vital signs: Vital Signs Temp 98 F 09/07/20 08:00 Pulse 67 09/07/20 08:00 Resp 18 09/07/20 08:00 BP 140/63 09/07/20 08:00 Pulse Ox 93 L 09/07/20 08:00 Intake & Output 09/06/20 09/07/20 09/07/20 18:59 06:59 18:59 Intake Total 420 10 Output Total 2625 1200 350 Balance -2205 -1190 -350 Weight 149.3 kg Intake: IV 10 0.9 10 Oral 420 Output: Urine 2625 1200 350 Other: Voiding Method Urinal Urinal # Voids 1 # Bowel Movements 0 - Labs CBC & Chem 7: 09/05/20 08:19 09/07/20 06:35 Labs: Abnormal Lab Results - Last 24 Hours (Table) 09/06/20 09/06/20 09/06/20 Range/Units 11:45 16:45 19:53 Potassium (3.5-5.1) mmol/L Chloride (98-107) mmol/L Carbon Dioxide (22-30) mmol/L BUN (9-20) mg/dL Glucose (74-99) mg/dL POC Glucose (mg/dL) 253 H 203 H 247 H (75-99) mg/dL 09/07/20 09/07/20 09/07/20 Range/Units 00:21 06:06 06:35 Potassium 3.3 L (3.5-5.1) mmol/L Chloride 85 L (98-107) mmol/L Carbon Dioxide 42 H* (22-30) mmol/L BUN 43 H (9-20) mg/dL Glucose 193 H (74-99) mg/dL POC Glucose (mg/dL) 148 H 181 H (75-99) mg/dL Microbiology - Last 24 Hours (Table) 09/04/20 21:38 Gram Stain - Final Sputum Sputum Culture - Final
[2020-09-07 11:49] LABS: Glucose,Whole Blood 288 mg/dL (75-99)
--- NOTE | 2020-09-07 11:57 | P.PN ---
Subjective Progress Note Date: 09/07/20 Principal diagnosis: Acute on chronic hypoxic/hypercapnic respiratory failure secondary to obstructive sleep apnea/obesity hypoventilation syndrome This is a 70-year-old morbidly obese male patient who is coming in to the hospital because of worsening shortness of breath, cough, congestion and mucus production. The patient is quite short of breath during activities of daily t nicolette life. Since his care home, and over the past 10 years, the patient has gained more than 100 pounds. Currently carries a BMI of 52.7. He is a nonsmoker. He has severe obstructive sleep apnea and based on a recent sleep study, the patient had an AHI of 86.7 and he also had severe nocturnal oxygen desaturation with a minimum pulse ox was low at 34% and the patient spent approximately 70% of the sleep time at a pulse ox of less than 90%. History was extensively fragmented. The patient is scheduled to undergo a CPAP titration at a later stage. He is also utilizing oxygen at baseline at 2 L due to chronic hypoxic respiratory failure. He is got multiple other medical problems and markos rbidities including diabetes mellitus, hyperlipidemia, and prostate disease, chronic A. fib/flutter. Based on our records, the patient has been utilizing a nebulizer at home. He has been utilizing Symbicort 2 puffs twice a day, DuoNeb nebulized treatments around the clock, along with prednisone 5 mg on a daily basis. He has been also using dextromethorphan for cough and congestion. Note that the patient has also received several courses of antibiotics and steroids on outpatient basis through his primary care physician and through our office. Based on pulmonary function test is not available at this point in time. His previous echo cardiac exam is shown a preserved LV function with an ejection fraction of about 70%. He has [id number] degree of pulmonary hypertension with a PA pressure of 40. No valvular abnormalities. CTA of the chest showed clear lungs from 05/10/2020. He has been on long-term articulation for A. fib/flutter and the patient has no history of pulmonary embolism. The workup thus far shows chronic hypoxic and hypercapnic respiratory failure room air blood gas that showed a pH of 7.44 with a pCO2 of 56 and pO2 of 66. The patient had normal renal function. The patient normal electrolytes. Troponin 1 is been negative. ProBNP level is at 288. COVID-19 testing is been negative. The white cell count of 7.4 with a hemoglobin of 15.4 and platelets of 203. Normal coagulation profile. Chest x-ray showing pulmonary vessel congestion/interstitial edema. 09/03/2020, the patient's coughing has dried up significantly and is not producing much of mucus. No fever. No chills. Is on Levaquin. He is also on 5 mg of prednisone a daily basis. No other significant events overnight. He is on Symbicort. Is on DuoNeb nebulized treatments around the clock. He remains on long-term medical condition with Eliquis. There was need a CPAP titration re garding his severe symptomatic obstructive sleep apnea. No signs of any fluid overload. on today's evaluation of 09/04/2020 the patient remains a negative fluid balance of 3.8 L. His chest x-ray from today showing some mild pulmonary vascular congestion. His mucous production is improved. He remains on Levaquin. He remains also on Lasix 40 mg IV every 8 hours. Less short of breath. Mucus p roduction is improved. No fever or chills. No other new complaints otherwise. Clinically improving. Patient was reevaluated today on 09/05/2020, patient is doing a bit better, breathing easier, remains on Lasix at 40 mg IV push 3 times a day, remains on Eliquis at 5 mg twice a day. He is also on Symbicort. And on DuoNeb updrafts 4 times a day and when necessary. On prednisone 40 mg by mouth daily. Patient seems to be improving since his admission a few days ago. ABC today is relatively normal lites are normal BUN is 22 creatinine 0.77. Patient is responding very well to diuretics, he is in a negative balance of over 2-1/2 L in the last couple of days, and his weight is down to 152 kg from 154 Reevaluated today on 09/06/2020, patient is doing better today, continues to breathe easier, remains on Lasix, remains on BiPAP as needed, he is also on Eliquis. Remains on Symbicort, patient has intermittent wheezing and cough, hence I increased his prednisone back up to 20 mg daily. Overall the patient is making significant improvement since admission. Continues to have intermittent dry cough. No chest pain, no dizziness, no palpitations, he is on 2 L nasal cannula. Labs including basic metabolic profile is normal today, blood sugar is 250 3. The patient is seen today 09/07/2020 in follow-up on the selective care unit. He is currently sitting up in a chair at the bedside. Awake and alert in no acute distress. He denies any worsening shortness of breath, cough or conge stion. He is maintaining O2 saturations in the 90s on 2 L/m per nasal cannula. Afebrile. Hemodynamically stable. Earlier this morning the patient had an episode of near syncope after getting up to use the restroom. He states while getting up he felt he had a cramp in his left leg went to put his foot down and then felt a pop behind the left ankle. He was able to make it to the bathroom. There is some question of possible vasa vagal response during a bowel movement. An A team was called. He was stabilized and he was returned to bed. Recently he is feeling well. No dizziness or lightheadedness. No chest pain. He does have continued left lower extremity discomfort. Sodium 138. Potassium 3.3. Bicarb 42. Creatinine 1.00. He remains on Symbicort, DuoNeb inhalations, prednisone. Changed to oral diuretics. Remains anticoagulated with Eliquis. Objective - Vital Signs Vital signs: Vital Signs Temp 98 F 09/07/20 08:00 Pulse 85 09/07/20 11:20 Resp 18 09/07/20 08:00 BP 140/63 09/07/20 08:00 Pulse Ox 93 L 09/07/20 08:00 Intake & Output 09/06/20 09/07/20 09/07/20 18:59 06:59 18:59 Intake Total 420 10 Output Total 2625 1200 350 Balance -2200 -5390 -350 Weight 149.3 kg Intake: IV 10 0.9 10 Oral 420 Output: Urine 2625 1200 350 Other: Voiding Method Urinal Urinal # Voids 1 # Bowel Movements 0 - Exam GENERAL EXAM: Alert, morbidly obese 70-year-old gentleman, up in a chair at the bedside, on 3 L nasal cannula comfortable in no apparent distress. HEAD: Normocephalic. EYES: Normal reaction of pupils, equal size. NOSE: Clear with pink turbinates. THROAT: No erythema or exudates. NECK: No masses, no JVD. CHEST: No chest wall deformity. LUNGS: Equal air entry with faint crackles in posterior bases. CVS: S1 and S2 normal with no audible murmur, regular rhythm. ABDOMEN: No hepatosplenomegaly, normal bowel sounds, no guarding or rigidity. SPINE: No scoliosis or deformity SKIN: No rashes CENTRAL NERVOUS SYSTEM: No focal deficits, tone is normal in all 4 extremities. EXTREMITIES: There is 1-2+ peripheral edema. No clubbing, no cyanosis. Peripheral pulses are intact. - Labs CBC & Chem 7: 09/05/20 08:19 09/07/20 06:35 Labs: Abnormal Lab Results - Last 24 Hours (Table) 09/06/20 09/06/20 09/06/20 Range/Units 11:45 16:45 19:53 Potassium (3.5-5.1) mmol/L Chloride (98-107) mmol/L Carbon Dioxide (22-30) mmol/L BUN (9-20) mg/dL Glucose (74-99) mg/dL POC Glucose (mg/dL) 253 H 203 H 247 H (75-99) mg/dL 09/07/20 09/07/20 09/07/20 Range/Units 00:21 06:06 06:35 Potassium 3.3 L (3.5-5.1) mmol/L Chloride 85 L (98-107) mmol/L Carbon Dioxide 42 H* (22-30) mmol/L BUN 43 H (9-20) mg/dL Glucose 193 H (74-99) mg/dL POC Glucose (mg/dL) 148 H 181 H (75-99) mg/dL Microbiology - Last 24 Hours (Table) 09/04/20 21:38 Gram Stain - Final Sputum Sputum Culture - Final Assessment and Plan Assessment: 1 Acute on chronic hypoxemic/hypercapnic respiratory due to obstructive sleep apnea/obesity hypoventilation syndrome. Nevertheless, there are symptoms of ongoing tracheal bronchitis with increased congestion cough and mucus production. COPD is doubtful. Previous CAT scan of the chest that showed no evidence of any lung abnormalities in the lungs were essentially within normal limits. No evidence of any pulmonary embolism. Patient has been on long-term anticoagulation. No obvious signs of decompensated heart failure. The patient has a low BNP level. 2 severe obstructive sleep apnea, AHI of 86 associated with severe nocturnal oxygen desaturation. 3 obesity hypoventilation syndrome with chronic hypercapnic respiratory failure 4 chronic hypoxic respiratory failure 5 morbid obesity 6 chronic atrial fibrillation/flutter 7 preserved LV function with mild hypertension secondary to above 8 hypertension 9 hyperlipidemia 10 diabetes mellitus 11 chronic prostate disease 12 near syncopal episode suspect secondary to vasovagal response during bowel movement and/or secondary to pain of the left lower extremity Plan The patient was seen and evaluated by Dr. Allison He is stable from the pulmonary standpoint We'll have orthopedics evaluate the left lower extremity for possible tendon injury Continue Symbicort, DuoNeb inhalations, prednisone CPAP titration to be done in the outpatient setting at the sleep Center We will see as needed I, the cosigning physician, performed a history & physical examination of the patient. Lungs sounds with faint crackles in the posterior bases. Maintaining good O2 saturations in the 90s on 3 L/min per nasal canula. I discussed the assessment and plan of care with my nurse practitioner, Carlie Sarabia. I attest to the above note as dictated by her.
[2020-09-07 15:24] VITALS: BMI 50.0
[2020-09-07] MEDS ORDERED: FUROSEMIDE 40 MG TAB PO SCH (16:00)
--- NOTE | 2020-09-07 16:02 | XR ---
Left ankle HISTORY: Pain, strain 3 views the left ankle There is soft tissue swelling present. Bone mineralization, joint spaces and alignment are maintained . There is a plantar calcaneal spur. Spurring is present at the tibiotalar joint, intertarsal joints. Soft 2 calcification anterior to the distal diaphyseal left tibia may be vascular. IMPRESSION: Osteoarthritis, soft tissue swelling, no acute fracture or dislocation is evident.
[2020-09-07 17:02] LABS: Glucose,Whole Blood 344 mg/dL (75-99)
--- NOTE | 2020-09-07 17:53 | P.CNOR ---
History of Present Illness - HPI Consult date: 09/07/20 History of present illness: This patient is a 70-year-old male who is currently admitted for acute CHF. Orthopedics was consulted for evaluation of the left ankle. Patient states he was up to the restroom last evening, when he was standing up from the toilet he felt a pop in the posterior left ankle. He then felt lightheaded due to the p ain, A team was activated. It was determined he most likely had a near syncopal event secondary to vasovagal versus dehydration from over diuresis, orthostatics were unremarkable. He states he has been experiencing pain in the posterior ankle since hearing the pop. He is having pain with ambulation. Discharge was planned for earlier today by his primary team, although patient requested evaluation of his left ankle before discharge. He denies new numbness or tingling of the left lower extremity. He denies calf pain. There are no additional orthopedic complaints. Vital signs currently stable. Past Medical History Past Medical History: Atrial Flutter, COPD, Diabetes Mellitus, Hyperlipidemia, Hypertension, Musculoskeletal Disorder, Pneumonia, Prostate Disorder, Sleep Apnea/CPAP/BIPAP Additional Past Medical History / Comment(s): HX OF BLACK LUNG, home oxygen History of Any Multi-Drug Resistant Organisms: None Reported Past Surgical History: Back Surgery, Hernia Repair, Joint Replacement, Tonsillectomy Additional Past Surgical History / Comment(s): JACY KNEE REPLACEMENT, LEFT SHOULDER "BALL" REPLACED, right shoulder reverse arthroplasty in September 2019 at [facility] Additional Past Anesthesia/Blood Transfusion Reaction / Comm: STATES HAS AWAKENED DURING SEVERAL SX INCLUDING JOINT REPLACEMENT Past Psychological History: No Psychological Hx Reported Smoking Status: Never smoker Past Alcohol Use History: None Reported Past Drug Use History: None Reported - Past Family History Mother Family Medical History: CVA/TIA Father Additional Family Medical History / Comment(s): etoh Medications and Allergies Home Medications Medication Instructions Recorded Confirmed Type Atorvastatin [Lipitor] 40 mg PO HS 07/26/13 09/01/20 History Cetirizine HCl [Zyrtec] 10 mg PO DAILY 07/26/13 09/01/20 History Apixaban [Eliquis] 5 mg PO BID 05/10/20 09/01/20 History Carvedilol [Coreg] 12.5 mg PO BID-W/MEALS 05/10/20 09/01/20 History Exenatide Microspheres [Bydureon 2 mg SQ TH 05/10/20 09/01/20 History Pen] INSULIN ASPART (NovoLOG) [NovoLOG See Protocol SQ TID-W/MEALS 05/10/20 09/01/20 History (formulary)] Insulin Glargine,Hum.rec.anlog 80 unit SQ DAILY 05/10/20 09/01/20 History [Paulino Hicks] Magnesium Oxide [Funk] 500 mg PO HS 05/10/20 09/01/20 History Multivitamins, Thera [Multivitamin 1 tab PO DAILY 05/10/20 09/01/20 History (formulary)] Olmesartan Medoxomil [Benicar] 20 mg PO DAILY 05/10/20 09/01/20 History metFORMIN HCL [Glucophage] 1,000 mg PO BID 05/10/20 09/01/20 History Budesonide/Formoterol Fumarate 2 puff INHALATION RT-BID 09/01/20 09/01/20 History [Symbicort 160-4.5 Mcg Inhaler] Dextromethorphan Polistirex 10 ml PO DAILY PRN 09/01/20 09/01/20 History [Delsym] Dm/Acetaminophen/Doxylamine [Vicks 30 ml PO HS 09/01/20 09/01/20 History Nyquil Cold-Flu Liquid] Ipratropium-Albuterol Nebulize 3 ml INHALATION RT-QID 09/01/20 09/01/20 History [Duoneb 0.5 mg-3 mg/3 ml Soln] predniSONE 5 mg PO DAILY 09/01/20 09/01/20 History Furosemide [Lasix] 40 mg PO DAILY@1600 #30 tab 09/07/20 Rx Furosemide [Lasix] 80 mg PO DAILY #30 tab 09/07/20 Rx Potassium Chloride ER [K-Dur 20] 20 meq PO BID #60 tab.er.prt 09/07/20 Rx guaiFENesin [Mucinex] 1,200 mg PO Q12HR tablet.er 09/07/20 Rx metOLazone [Zaroxolyn] 2.5 mg PO DAILY #30 tab 09/07/20 Rx predniSONE [Deltasone] 20 mg PO DAILY #5 tab 09/07/20 Rx Allergies Allergy/AdvReac Type Severity Reaction Status Date / Time adhesive Allergy Rash/Hives Verified 09/01/20 13:01 Penicillins Allergy Rash/Hives Verified 09/01/20 13:01 Physical Examination On examination, the patient is sitting up in the bedside chair in no apparent distress. He is alert and oriented 3. His head appears normocephalic and atraumatic. His breathing appears nonlabored. Nasal cannula in place. On inspection of the left lower extremity, there is no ecchymosis, erythema, skin discoloration. No significant swelling. There is pain on palpation in the midsubstance of the Achilles tendon. No palpable gaps or nodularity noted. No pain on palpation of the anterior ankle, medial malleolus, lateral malleolus. No pain with palpation of the dorsal or plantar foot. Calcaneus is nontender. Calf is soft and non-tender, no signs of DVT. Patient has good strength and jcblo-[id number] of the ankle. Good strength with resisted plantar flexion. Motor and sensory function intact of the left lower extremity. Dorsalis pedis pulse +2, left lower extremity is warm and well perfused. Results Left ankle x-ray 09/07/20: No acute fractures. Stable ankle mortise. - Labs Labs: Abnormal Lab Results - Last 24 Hours (Table) 09/06/20 09/07/20 09/07/20 Range/Units 19:53 00:21 06:06 Potassium (3.5-5.1) mmol/L Chloride (98-107) mmol/L Carbon Dioxide (22-30) mmol/L BUN (9-20) mg/dL Glucose (74-99) mg/dL POC Glucose (mg/dL) 247 H 148 H 181 H (75-99) mg/dL 09/07/20 09/07/20 09/07/20 Range/Units 06:35 11:47 17:01 Potassium 3.3 L (3.5-5.1) mmol/L Chloride 85 L (98-107) mmol/L Carbon Dioxide 42 H* (22-30) mmol/L BUN 43 H (9-20) mg/dL Glucose 193 H (74-99) mg/dL POC Glucose (mg/dL) 288 H 344 H (75-99) mg/dL Microbiology - Last 24 Hours (Table) 09/04/20 21:38 Gram Stain - Final Sputum Sputum Culture - Final H & H 09/01/20 09/05/20 Range/Units 12:52 08:19 Hgb 15.4 15.9 (13.0-17.5) gm/dL Hct 49.3 49.1 (39.0-53.0) % Coagulation 09/01/20 Range/Units 12:52 INR 0.9 (<1.2) Result Diagrams: 09/05/20 08:19 09/07/20 06:35 Assessment and Plan Assessment: Achilles tendon strain, left ankle Plan: The clinical and imaging findings were discussed with the patient. There is no obvious Achilles tendon tear on clinical exam today. Recommended immobilization of the left ankle in a tall CAM boot for comfort and assistance with ambulation. He may bear to tolerance on the left ankle while wearing the boot. Recommended outpatient follow-up in the office in 1-2 weeks for clinical re- evaluation. He may require advanced imaging at that time, which may be performed on an outpatient basis. Patient is ok for discharge from orthopedic standpoint once he obtains the tall CAM boot.
[2020-09-07 20:05] LABS: Glucose,Whole Blood 366 mg/dL (75-99)
[2020-09-07] MEDS: ATORVASTATIN 40 MG TAB PO SCH (20:13)
[2020-09-07] MEDS: MAGNESIUM OXIDE 400 MG TAB PO SCH (20:13)
[2020-09-07] MEDS: INSULIN DETEMIR (LEVEMIR) 100 UNIT/ML SYR SQ SCH (20:13)
[2020-09-08 06:27] LABS: Glucose,Whole Blood 161 mg/dL (75-99)
[2020-09-08] MEDS: carvediloL 12.5 MG TAB PO SCH (06:36)
[2020-09-08] MEDS: CLOTRIMAZOLE TROCHE 10 MG TROCHE MUCOUS MEM SCH ×2 (06:36→09:28)
[2020-09-08] MEDS: INSULIN ASPART (NovoLOG) 100 UNIT/ML VIAL SQ SCH ×4 (06:37→11:58)
[2020-09-08] MEDS: IPRATROPIUM-ALBUTEROL 3 ML NEB INHALATION SCH ×2 (08:22→11:57)
[2020-09-08] MEDS: SYMBICORT 160-4.5 MCG INHALER INHALATION SCH (08:22)
[2020-09-08] MEDS: FUROSEMIDE 80 MG TAB PO SCH (09:22)
[2020-09-08] MEDS: LOSARTAN 50 MG TAB PO SCH (09:22)
[2020-09-08] MEDS: metFORMIN 500 MG TAB PO SCH (09:23)
[2020-09-08] MEDS: MULTIVITAMINS, THERA 1 EACH TAB PO SCH (09:23)
[2020-09-08] MEDS: guaiFENesin 600 MG TABLET.ER PO SCH (09:23)
[2020-09-08] MEDS: POTASSIUM CHLORIDE ER 20 MEQ TAB.ER PO SCH (09:23)
[2020-09-08] MEDS: predniSONE 20 MG TAB PO SCH (09:23)
[2020-09-08] MEDS: APIXABAN 5 MG TAB PO SCH (09:23)
[2020-09-08] MEDS: metOLazone 2.5 MG TAB PO SCH (09:28)
[2020-09-08 10:52] VITALS: RESP 16; TEMP 97.8
[2020-09-08 11:52] LABS: Glucose,Whole Blood 257 mg/dL (75-99)
--- NOTE | 2020-09-08 11:59 | PN ---
PROGRESS NOTE Mr. Soria is in sinus rhythm, maintaining since electrical cardioversion. Hemodynamically stable. Weight is down. We switch him to oral Lasix. Vitals stable. JVD 1 cm. No carotid bruit. S1-S2 heard normally. Distant heart sounds. Short systolic murmur. Clear lungs. Abdomen: Soft. Lower extremity edema has improved. Plan is to continue current medications. He can be discharged and see Dr. Sapp in 2 weeks. To call if he has any questions, concerns or problems. MMODL / IJN: [id number] /
[2020-09-08 12:03] VITALS: BP 124/70
[2020-09-08 12:05] VITALS: PULSE 86
--- NOTE | 2020-09-08 13:21 | P.PN ---
Subjective Progress Note Date: 09/07/20 HISTORY OF PRESENT ILLNESS This is a 70-year-old male patient of Dr. Lemos and Dr. Galloway with past medical history of diabetes mellitus type 2, hypertension, hyperlip idemia, suspected obstructive sleep apnea, history of atrial flutter on eliquis. He complains of cough and shortness of breath, for the past 4 weeks, for which she was managed by Dr. Gonzalez and the PCP, 5 visits over the past 4 weeks, to include an antibiotic, oral steroids, rescue inhalers and steroid inhalers, he does have purulence with a cough, increasing lower leg edema, shortness of breath and dyspnea on exertion, and palpitations. He does have PND, and orthopnea, and was subsequently seen in emergency room for worsening symptoms, and was found to be in congestive heart failure, with purulent tracheal bronchitis with bronchospasm. Echocardiogram was 60 obtained April 2020, shows severe concentric LVH, ejection fraction greater than 70%, right ventricular systolic pressure 40, mild TR, mild pulmonary hypertension, mildly thickened aortic valve leaflets with mean gradient of 8, troponin negative 1, NT proBNP of 288, patient is on a eliquis Coreg hydrochlorothiazide, and is currently in the cardiac lab, for EVA cardioversion, 40 shortness of breath. EKG showed incomplete right bundle branch block, with underlying atrial flutter controlled rate, chest x-ray showed venous congestion. On the interim, he had a sleep apnea machine, ordered by pulmonary, for which he stopped breathing 50 times in one hour, AHI of 50, for which CPAP machine was ordered by Dr. Reyez, and this will be expedited EVA performed, to evaluate for left atrial appendage thrombus, 09/03: Patient sitting, noted to have edema, bilateral legs and highs, no shortness of breath during conversation, has some dyspnea on exertion, still has some cough, BNP is normal, EVA was performed 09/02/2020, to look for left lateral appendage thrombus, currently it was negative for any thrombus, has normal right ventricular dimension and systolic function, aortic sclerosis with mild aortic insufficiency, thickened mitral valve with mild MR, EF documented to be within normal limits, have mild concentric LVH. Chest patient is currently on IV Lasix 40 mg every 8 hours, he is on oral Levaquin, chronic prednisone 5 mg daily, Symbicort, and DuoNeb around the clock. There was no change in [place], no signs of active bleeding at this time, Dr. Reyez has evaluated the patient, with plans for keeping IV Lasix for the next 24 hours, patient's anticipated to be discharged tomorrow fper other services. Diabetes medications are readjusted today, he already took his Bydureon, we are going to start Lev taylor 80 units, to replace his tuojeo from home 09/04: Patient is still kept For IV Lasix for edema,, plan for discharge tomorrow, patient has productive cough with whitish sputum, sputum was collected for culture, on IV Levaquin, has oral candidal changes in the tongue, clotrimazole started, patient's chronically on 5 minute gram prednisone, blood sugars between 117-240 families at bedside, nonlabored breathing, O2 sats 93% room air, blood pressure 116/62, no fever, no chest pain. Anticipate discharge in the morning. 09/05: Patient continues to have cough but he states he is bringing up less sputum and it is no longer brown. He states his breathing is better. He still has lower extremity edema but he also states that this is much improved. He has lost 10 kg since admission. He is currently on IV Lasix 40 mg every 8 hours and followed by cardiology. Patient has been afebrile, heart rate 73, blood pressure 119/70, pulse ox 91% on 2 L nasal cannula. Blood sugars are running 108-243. Patient also has some wheezing for which prednisone will be increased from his baseline of 5 mg to 40 mg daily. 09/06: Patient continues to improve slowly have some shortness of breath with activity and he states he has a cough after deep breathing. Cough is nonproductive. Pulmonary has decreased prednisone to 20 mg daily. Patient is also followed by cardiology with plan to continue IV Lasix with metolazone for another day. Anticipate possible discharge by tomorrow. Patient's weight is down 11.5 kg since admission. Repeat blood work reveals sodium 138, potassium 3.5, chloride 89, CO2 39, BUN 29 creatinine 0.94. Blood sugars are running mostly in the 200s from 253-296. Patient had 1 reading of 406. Plan to continue Levemir 80 units at bedtime and add NovoLog 5 units 3 times daily with meals. 09/07: Patient an event last night around 2 AM where he had a vasovagal episode while having a bowel movement. No further episodes, no lightheadedness or dizziness. Patient states that last evening he had a leg cramp and he was pushing hard to make it relax and he felt a pop in the ankle of his left leg and concerning that he tore his Achilles tendon. He has been seen by [facility] orthopedics and x-ray of the left ankle was ordered but patient has declined as he feels he needs to have an MRI. [facility] in [facility] past and the consult was changed to [facility]. Patient has been seen by cardiology and potassium was replaced. Magnesium was 2.1. Patient was cleared for discharge from cardiology. Patient will be discharged once issue with his left ankle/Achilles has been addressed. REVIEW OF SYSTEMS Constitutional: No fever, no chills, no night sweats. No weight change. No weakness, fatigue or lethargy. No daytime sleepiness. EENT: No headache. No blurred vision or double vision, no loss of vision. No loss of Hearing, no ringing in the ears, no dizziness. No nasal drainage or congestion. No epistaxis. No sore throat. Lungs: Reports shortness of breath, reports cough, reports sputum production. Reports wheezing. Cardiovascular: No chest pain, reports lower extremity edema. No palpitations. No paroxysmal nocturnal dyspnea. No orthopnea. No lightheadedness or dizziness. No syncopal episodes. Abdominal: No abdominal pain. No nausea, vomiting. No diarrhea. No constipation. No bloody or tarry stools.. No loss of appetite. Genitourinary: No dysuria, increased frequency, urgency. No urinary retention. Musculoskeletal: No myalgias. No muscle weakness, no gait dysfunction, no frequent falls. No back pain. No neck pain. Left ankle pain. Integumentary: No wounds, no lesions. No rash or pruritus. No unusual bruising. No change in hair or nails. Neurologic: No aphasia. No facial droop. No change in mentation. No head injury. No headache. No paralysis. No paresthesia. Psychiatric: No depression. No anxiety. No mood swings. Endocrine: Noted abnormal blood sugars. PHYSICAL EXAMINATION Gen: This is a 70-year-old morbidly obese male. He is resting in chair and appears to be comfortable at rest. HEENT: Head is atraumatic, normocephalic. Pupils equal, round. Sclerae is anicteric. NECK: Supple. No JVD. No lymphadenopathy. No thyromegaly. LUNGS: Bilateral expiratory wheeze, diminished at the bases. No intercostal ret ractions. HEART: Regular rate and rhythm. Systolic ejection murmur. ABDOMEN: Soft. Bowel sounds are present. No masses. No tenderness. EXTREMITIES: 3+ bilateral pedal edema. No calf tenderness. NEUROLOGICAL: Patient is awake, alert and oriented x3. Cranial nerves 2 through 12 are grossly intact. ASSESSMENT AND PLAN 1. Acute on chronic diastolic heart failure. Cardiology consult appreciated. Continue IV Lasix 40 mg every 8 hours, monitor I&O, daily weights, renal function and electrolytes. Zaroxolyn 2.5 mg daily. 2. Acute purulent tracheobronchitis with bronchospasm. Consult with pulmonary medicine appreciated. Continue DuoNeb treatments 4 times daily and every 4 hours as needed, Pulmicort 1 mg twice daily, Levaquin 750 mg daily, Symbicort twice daily, prednisone has been decreased to 20 mg daily. 3. Persistent atrial flutter status post EVA and cardioversion with Dr. Sapp on 09/02. 4. Obstructive sleep apnea. Patient have outpatient workup completed. 5. Hypertension. Continue Coreg 0.5 mg twice daily, losartan 100 mg daily 6. Diabetes mellitus type 2. Patient was on Tuojeo 80 units daily Bydureon 2 mg every . Continue Levemir 80 units at bedtime, add NovoLog 5 units with meals and continue NovoLog scale before meals and at bedtime, and metformin 1000 mg twice daily. 7. Seasonal ALLERGIES. Continue Claritin 10 mg daily, singular 10 mg at bedtime. 8. Oral mona. Continue clotrimazole. 9. Suspected gastroesophageal reflux disease and GI prophylaxis. Continue Protonix. 10. Chronic hypoxic respiratory failure on Home O2 at 2L n/c. 11. DVT prophylaxis. Heparin subcu. 12. Left ankle pain. Orthopedic evaluation. DISCHARGE PLAN Home on Saturday Impression and plan of care have been directed as dictated by the signing physician. Tawnya Mir nurse practitioner acting as scribe for signing physician. Objective - Vital Signs Vital signs: Vital Signs Temp 98 F 09/07/20 08:00 Pulse 85 09/07/20 11:20 Resp 18 09/07/20 08:00 BP 140/63 09/07/20 08:00 Pulse Ox 93 L 09/07/20 08:00 Intake & Output 09/06/20 09/07/20 09/07/20 18:59 06:59 18:59 Intake Total 420 10 Output Total 2625 1200 350 Balance -2205 -1190 -350 Weight 149.3 kg Intake: IV 10 0.9 10 Oral 420 Output: Urine 2625 1200 350 Other: Voiding Method Urinal Urinal # Voids 1 # Bowel Movements 0 - Labs CBC & Chem 7: 09/05/20 08:19 09/07/20 06:35 Labs: Abnormal Lab Results - Last 24 Hours (Table) 09/06/20 09/06/20 09/06/20 Range/Units 11:45 16:45 19:53 Potassium (3.5-5.1) mmol/L Chloride (98-107) mmol/L Carbon Dioxide (22-30) mmol/L BUN (9-20) mg/dL Glucose (74-99) mg/dL POC Glucose (mg/dL) 253 H 203 H 247 H (75-99) mg/dL 09/07/20 09/07/20 09/07/20 Range/Units 00:21 06:06 06:35 Potassium 3.3 L (3.5-5.1) mmol/L Chloride 85 L (98-107) mmol/L Carbon Dioxide 42 H* (22-30) mmol/L BUN 43 H (9-20) mg/dL Glucose 193 H (74-99) mg/dL POC Glucose (mg/dL) 148 H 181 H (75-99) mg/dL Microbiology - Last 24 Hours (Table) 09/04/20 21:38 Gram Stain - Final Sputum Sputum Culture - Final
--- NOTE | 2020-09-08 13:24 | P.DS ---
Providers Date of admission: 09/01/20 14:59 Expected date of discharge: 09/08/20 Attending physician: Brianna Cabral Consults: 09/01/20 14:51 Consult Physician Urgent Consulting Provider: Thony Galloway Consult Reason/Comments: Venous congestion, congestive heart failure versus interstitial pneumonia Do you want consulting provider notified?: Yes 09/01/20 14:55 Consult Physician Urgent Consulting Provider: Onur Sapp Consult Reason/Comments: Pulmonary venous congestion. vs CHF Do you want consulting provider notified?: Yes 09/07/20 09:44 Consult Physician Routine Consulting Provider: Guicho Young Consult Reason/Comments: left achilles tendon injury Do you want consulting provider notified?: Yes Primary care physician: [facility] [place] Course: HISTORY OF PRESENT ILLNESS This is a 70-year-old male patient of Dr. Lemos and Dr. Galloway with past medical history of diabetes mellitus type 2, hypertension, hyperlipidemia, suspected obstructive sleep apnea, history of atrial flutter on eliquis. He complains of cough and shortness of breath, for the past 4 weeks, f or which she was managed by Dr. Gonzalez and the PCP, 5 visits over the past 4 weeks, to include an antibiotic, oral steroids, rescue inhalers and steroid inhalers, he does have purulence with a cough, increasing lower leg edema, shortness of breath and dyspnea on exertion, and palpitations. He does have PND, and orthopnea, and was subsequently seen in emergency room for worsening symptoms, and was found to be in congestive heart failure, with purulent tracheal bronchitis with bronchospasm. Echocardiogram was 60 obtained April 2020, shows severe concentric LVH, ejection fraction greater than 70%, right ventricular systolic pressure 40, mild TR, mild pulmonary hypertension, mildly thickened aortic valve leaflets with mean gradient of 8, troponin negative 1, NT proBNP of 288, patient is on a eliquis Coreg hydrochlorothiazide, and is currently in the cardiac lab, for EVA cardioversion, 40 shortness of breath. EKG showed incomplete right bundle branch block, with underlying atrial flutter controlled rate, chest x-ray showed venous congestion. On the interim, he had a sleep apnea machine, ordered by pulmonary, for which he stopped breathing 50 times in one hour, AHI of 50, for which CPAP machine was ordered by Dr. Reyez, and this will be expedited EVA performed, to evaluate for left atrial appendage thrombus, 09/03: Patient sitting, noted to have edema, bilateral legs and highs, no shortness of breath during conversation, has some dyspnea on exertion, still has some cough, BNP is normal, EVA was performed 09/02/2020, to look for left lateral appendage thrombus, currently it was negative for any thrombus, has normal right ventricular dimension and systolic function, aortic sclerosis with mild aortic insufficiency, thickened mitral valve with mild MR, EF documented to be within normal limits, have mild concentric LVH. Chest patient is currently on IV Lasix 40 mg every 8 hours, he is on oral Levaquin, chronic prednisone 5 mg daily, Symbicort, and DuoNeb around the clock. There was no change in [place], no signs of active bleeding at this time, Dr. Reyez has evaluated the patient, with plans for keeping IV Lasix for the next 24 hours, patient's anticipated to be discharged tomorrow fper other services. Diabetes medications are readjusted today, he already took his Bydureon, we are going to start Levemir 80 units, to replace his tuojeo from home 09/04: Patient is still kept For IV Lasix for edema,, plan for discharge tomorrow, patient has productive cough with whitish sputum, sputum was collected for culture, on IV Levaquin, has oral candidal changes in the tongue, clotrimazole started, patient's chronically on 5 minute gram prednisone, blood sugars between 117-240 families at bedside, nonlabored breathing, O2 sats 93% room air, blood pressure 116/62, no fever, no chest pain. Anticipate discharge in the morning. 09/05: Patient continues to have cough but he states he is bringing up less sputum and it is no longer brown. He states his breathing is better. He still has lower extremity edema but he also states that this is much improved. He has lost 10 kg since admission. He is currently on IV Lasix 40 mg every 8 hours and followed by cardiology. Patient has been afebrile, heart rate 73, blood pressure 119/70, pulse ox 91% on 2 L nasal cannula. Blood sugars are running 108-243. Patient also has some wheezing for which prednisone will be increased from his baseline of 5 mg to 40 mg daily. 09/06: Patient continues to improve slowly have some shortness of breath with activity and he states he has a cough after deep breathing. Cough is nonproductive. Pulmonary has decreased prednisone to 20 mg daily. Patient is also followed by cardiology with plan to continue IV Lasix with metolazone for another day. Anticipate possible discharge by tomorrow. Patient's weight is down 11.5 kg since admission. Repeat blood work reveals sodium 138, potassium 3.5, chloride 89, CO2 39, BUN 29 creatinine 0.94. Blood sugars are running mostly in the 200s from 253-296. Patient had 1 reading of 406. Plan to continue Levemir 80 units at bedtime and add NovoLog 5 units 3 times daily with meals. 09/07: Patient an event last night around 2 AM where he had a vasovagal episode while having a bowel movement. No further episodes, no lightheadedness or dizziness. Patient states that last evening he had a leg cramp and he was pushing hard to make it relax and he felt a pop in the ankle of his left leg and concerning that he tore his Achilles tendon. He has been seen by [facility] orthopedics and x-ray of the left ankle was ordered but patient has declined as he feels he needs to have an MRI. [facility] apparently [facility] in [facility] past and the consult was changed to [facility]. Patient has been seen by cardiology and potassium was replaced. Magnesium was 2.1. Patient was cleared for discharge from cardiology. Patient will be discharged once issue with his left ankle/Achilles has been addressed. 09/08: X-ray of the left ankle revealed osteoarthritis, soft tissue swelling, no acute fracture dislocation. Patient has been seen by [facility] and tall cam boot was ordered, may bear weight as tolerated while wearing boot. Patient to follow-up in the office in one to 2 weeks. Patient's breathing status remains stable. No chest pain. Lower extremity edema continues to be improved. Patient will be discharged home today in stable condition. ASSESSMENT AND PLAN 1. Acute on chronic diastolic heart failure. 2. Acute purulent tracheobronchitis with bronchospasm. 3. Persistent atrial flutter status post EVA and cardioversion with Dr. Sapp on 09/02. 4. Obstructive sleep apnea. 5. Hypertension. 6. Diabetes mellitus type 2. 7. Seasonal ALLERGIES. 8. Oral mona. 9. Suspected gastroesophageal reflux disease 10. Chronic hypoxic respiratory failure on Home O2 at 2L n/c. DISCHARGE PLAN Home on Impression and plan of care have been directed as dictated by the signing physician. Tawnya Mir nurse practitioner acting as scribe for signing physician. Patient Condition at Discharge: Good Plan - Discharge Summary Discharge Rx Participant: Yes New Discharge Prescriptions: New Potassium Chloride ER [K-Dur 20] 20 meq PO BID #60 tab.er.prt Furosemide [Lasix] 80 mg PO DAILY #30 tab Furosemide [Lasix] 40 mg PO DAILY@1600 #30 tab guaiFENesin [Mucinex] 1,200 mg PO Q12HR tablet.er predniSONE [Deltasone] 20 mg PO DAILY #5 tab metOLazone [Zaroxolyn] 2.5 mg PO DAILY #30 tab Continue Atorvastatin [Lipitor] 40 mg PO HS Cetirizine HCl [Zyrtec] 10 mg PO DAILY Multivitamins, Thera [Multivitamin (formulary)] 1 tab PO DAILY Magnesium Oxide [Funk] 500 mg PO HS Olmesartan Medoxomil [Benicar] 20 mg PO DAILY Insulin Glargine,Hum.rec.anlog [Toujeo Solostar] 80 unit SQ DAILY INSULIN ASPART (NovoLOG) [NovoLOG (formulary)] See Protocol SQ TID-W/MEALS metFORMIN HCL [Glucophage] 1,000 mg PO BID Apixaban [Eliquis] 5 mg PO BID Carvedilol [Coreg] 12.5 mg PO BID-W/MEALS Exenatide Microspheres [Bydureon Pen] 2 mg SQ TH predniSONE 5 mg PO DAILY Dm/Acetaminophen/Doxylamine [Vicks Nyquil Cold-Flu Liquid] 30 ml PO HS Dextromethorphan Polistirex [Delsym] 10 ml PO DAILY PRN PRN Reason: Cough Budesonide/Formoterol Fumarate [Symbicort 160-4.5 Mcg Inhaler] 2 puff INHALATION RT-BID Ipratropium-Albuterol Nebulize [Duoneb 0.5 mg-3 mg/3 ml Soln] 3 ml INHALATION RT-QID Discontinued Potassium Gluconate 99 mg PO HS hydroCHLOROthiazide [Hydrodiuril] 50 mg PO DAILY Discharge Medication List Atorvastatin [Lipitor] 40 mg PO HS 07/26/13 [History] Cetirizine HCl [Zyrtec] 10 mg PO DAILY 07/26/13 [History] Apixaban [Eliquis] 5 mg PO BID 05/10/20 [History] Carvedilol [Coreg] 12.5 mg PO BID-W/MEALS 05/10/20 [History] Exenatide Microspheres [Bydureon Pen] 2 mg SQ TH 05/10/20 [History] INSULIN ASPART (NovoLOG) [NovoLOG (formulary)] See Protocol SQ TID-W/MEALS 05/10/20 [History] Insulin Glargine,Hum.rec.anlog [Toujeo Solostar] 80 unit SQ DAILY 05/10/20 [History] Magnesium Oxide [Funk] 500 mg PO HS 05/10/20 [History] Multivitamins, Thera [Multivitamin (formulary)] 1 tab PO DAILY 05/10/20 [History] Olmesartan Medoxomil [Benicar] 20 mg PO DAILY 05/10/20 [History] metFORMIN HCL [Glucophage] 1,000 mg PO BID 05/10/20 [History] Budesonide/Formoterol Fumarate [Symbicort 160-4.5 Mcg Inhaler] 2 puff INHALATION RT-BID 09/01/20 [History] Dextromethorphan Polistirex [Delsym] 10 ml PO DAILY PRN 09/01/20 [History] Dm/Acetaminophen/Doxylamine [Vicks Nyquil Cold-Flu Liquid] 30 ml PO HS 09/01/20 [History] Ipratropium-Albuterol Nebulize [Duoneb 0.5 mg-3 mg/3 ml Soln] 3 ml INHALATION RT-QID 09/01/20 [History] predniSONE 5 mg PO DAILY 09/01/20 [History] Furosemide [Lasix] 40 mg PO DAILY@1600 #30 tab 09/07/20 [Rx] Furosemide [Lasix] 80 mg PO DAILY #30 tab 09/07/20 [Rx] Potassium Chloride ER [K-Dur 20] 20 meq PO BID #60 tab.er.prt 09/07/20 [Rx] guaiFENesin [Mucinex] 1,200 mg PO Q12HR tablet.er 09/07/20 [Rx] metOLazone [Zaroxolyn] 2.5 mg PO DAILY #30 tab 09/07/20 [Rx] predniSONE [Deltasone] 20 mg PO DAILY #5 tab 09/07/20 [Rx] Follow up Appointment(s)/Referral(s): [facility] [Provider Group] - 1 Week (Appointment is scheduled for September at 10:00 am. Arrive 15 minutes early for paperwork. Bring photo ID and insurance card. Wear a mask.) Onur Sapp MD [STAFF PHYSICIAN] - 09/15/20 1:15 pm ([facility] location) Julio Lemos DO [Primary Care Provider] - 1-2 days (Office will call you with an appointment. ) Lorenza Reyez MD [STAFF PHYSICIAN] - 09/29/20 3:15 pm (Will see ALINE Sexton in the office.) Patient Instructions/Handouts: Heart Failure (DC), Atrial Flutter (DC), Sleep Apnea (DC), Chronic Respiratory Failure (DC), Type 2 Diabetes Management for Adults (DC) Activity/Diet/Wound Care/Special Instructions: [facility] state they will call pt with date and time when the have their first cancellation. Wear CAM boot, patient may bear weight when CAM boot is on. Discharge Disposition: HOME SELF-CARE
== END 2020-09-08 13:10 | disposition home or self-care (01) | DRG 308 ==
LOC: EC 11:34 → 3SCARD 14:59
PROVIDERS: ADMIT Family Medicine; ATTEND Family Medicine
PROC: B24BZZ4 Ultrasonography of Heart with Aorta, Transesophageal (ICD-10-PCS; principal; 2020-09-02 11:25)
PROC: 5A2204Z Restoration of Cardiac Rhythm, Single (ICD-10-PCS; principal; 2020-09-02 11:25)
DX: I48.3 Typical atrial flutter (principal); J96.21 Acute and chronic respiratory failure with hypoxia; J96.22 Acute and chronic respiratory failure with hypercapnia; I50.33 Acute on chronic diastolic (congestive) heart failure; E66.2 Morbid (severe) obesity with alveolar hypoventilation; Z68.43 Body mass index [BMI] 50.0-59.9, adult; B37.0 Candidal stomatitis; J44.0 Chronic obstructive pulmonary disease with (acute) lower respiratory infection; I11.0 Hypertensive heart disease with heart failure; I48.19 Other persistent atrial fibrillation; H91.90 Unspecified hearing loss, unspecified ear; E11.9 Type 2 diabetes mellitus without complications; J60 Coalworker's pneumoconiosis; Z20.822 Contact with and (suspected) exposure to COVID-19; Z79.01 Long term (current) use of anticoagulants; Z79.4 Long term (current) use of insulin; Z79.51 Long term (current) use of inhaled steroids; Z87.01 Personal history of pneumonia (recurrent); E78.5 Hyperlipidemia, unspecified; Z82.3 Family history of stroke; J20.9 Acute bronchitis, unspecified; I48.91 Unspecified atrial fibrillation; I27.20 Pulmonary hypertension, unspecified; R55 Syncope and collapse; J30.2 Other seasonal allergic rhinitis; K21.9 Gastro-esophageal reflux disease without esophagitis; Z79.52 Long term (current) use of systemic steroids; I44.0 Atrioventricular block, first degree; I45.10 Unspecified right bundle-branch block; M19.90 Unspecified osteoarthritis, unspecified site; N42.9 Disorder of prostate, unspecified; S96.912A Strain of unspecified muscle and tendon at ankle and foot level, left foot, initial encounter; T50.2X5A Adverse effect of carbonic-anhydrase inhibitors, benzothiadiazides and other diuretics, initial encounter; Z79.899 Other long term (current) drug therapy; Z96.653 Presence of artificial knee joint, bilateral
CPT/HCPCS: 36415; 71045; 71046; 80048; 80053; 83735; 83880; 84484; 85025; 85610; 85730; 87070; 87205; 87635; 92960; 93005; 93312; 93325; 94640; 96374; 99285

== ENCOUNTER → 2020-09-29 | Outpatient (CLI) | payer MEDICARE ==
[2020-09-29 20:38] LABS: Albumin 4.6 g/dL (3.80-4.90); Albumin/Globulin Ratio 2.09 (1.60-3.17); BUN/Creat Ratio 32.73 Ratio (12.00-20.00); Calcium 9.8 mg/dL (8.7-10.3); Globulin 2.2 g/dL (1.6-3.3); Non-African American GFR(CKD) 68.1 (60.0-200.0); Potassium 3.6 mmol/L (3.5-5.5); Total Bilirubin 1.2 mg/dL (0.3-1.2); Total Protein 6.8 g/dL (6.2-8.2)
== END | disposition home or self-care (01) ==
LOC: LABWHC1 09:37
PROVIDERS: ATTEND Family Medicine
DX: I50.9 Heart failure, unspecified (principal); J18.9 Pneumonia, unspecified organism
CPT/HCPCS: 36415; 80053; 83880

== ENCOUNTER → 2021-08-15 | Outpatient (CLI) | payer MEDICARE ==
[2021-08-15 15:14] LABS: ALT 23 U/L (10-49); AST 23 U/L (14-35); African American GFR (CKD) 104.2 (60.0-200.0); Albumin 4.2 g/dL (3.8-4.9); Alkaline Phosphatase 108 U/L (41-126); BUN/Creat Ratio 13.64 Ratio (12.00-20.00); Blood Urea Nitrogen 11.1 mg/dL (9.0-27.0); Calcium 9.5 mg/dL (8.7-10.3); Carbon Dioxide 31.4 mmol/L (20.0-27.5); Chloride 101 mmol/L (96-109); Chol/HDL Ratio 2.82 Ratio; Globulin 2.8 g/dL (1.6-3.3); Glucose 128 mg/dL (70-110); LDL Cholesterol,Calculated 68.6 mg/dL (0.0-131.0); Non-African American GFR(CKD) 89.9 (60.0-200.0); Potassium 4.1 mmol/L (3.5-5.5); Sodium 144 mmol/L (135-145); VLDL Calculation 18.54 mg/dL (5.00-40.00)
[2021-08-16 05:22] LABS: Microalbumin Creatinine Ratio <30 mg/g Creat (0-30)
== END | disposition home or self-care (01) ==
LOC: LABWHC1 08:27
PROVIDERS: ATTEND Internal Medicine Endocrinology, Diabetes & Metabolism
DX: E11.65 Type 2 diabetes mellitus with hyperglycemia (principal)
CPT/HCPCS: 36415; 80053; 80061; 82043; 82570; 83036; 84443

== ENCOUNTER → 2022-03-27 | Outpatient (CLI) | payer MEDICARE ==
[2022-03-27 14:48] LABS: ALT 23 U/L (10-49); AST 23 U/L (14-35); African American GFR (CKD) 99.2 (60.0-200.0); Alkaline Phosphatase 103 U/L (41-126); BUN/Creat Ratio 16.56 Ratio (12.00-20.00); Blood Urea Nitrogen 14.9 mg/dL (9.0-27.0); Carbon Dioxide 28.8 mmol/L (20.0-27.5); Chloride 104 mmol/L (96-109); Chol/HDL Ratio 2.92 Ratio; Globulin 2.1 g/dL (1.6-3.3); Glucose 99 mg/dL (70-110); LDL Cholesterol,Calculated 72.5 mg/dL (0.0-131.0); Non-African American GFR(CKD) 85.6 (60.0-200.0); Potassium 3.9 mmol/L (3.5-5.5); Sodium 143 mmol/L (135-145); Total Protein 6.1 g/dL (6.2-8.2)
[2022-03-27 21:05] LABS: Microalbumin Creatinine Ratio <30 mg/g Creat (0-30)
== END | disposition home or self-care (01) ==
LOC: LABWHC1 08:52
PROVIDERS: ATTEND Internal Medicine Endocrinology, Diabetes & Metabolism
DX: E11.65 Type 2 diabetes mellitus with hyperglycemia (principal)
CPT/HCPCS: 36415; 80053; 80061; 82043; 82570; 83036; 84443

== ENCOUNTER → 2022-06-27 | Outpatient (CLI) | payer MEDICARE ==
[2022-06-27 16:08] LABS: ALT 25 U/L (10-49); AST 20 U/L (14-35); African American GFR (CKD) 87.4 (60.0-200.0); Albumin 4.2 g/dL (3.8-4.9); Albumin/Globulin Ratio 1.68 (1.60-3.17); Alkaline Phosphatase 102 U/L (41-126); Blood Urea Nitrogen 12.5 mg/dL (9.0-27.0); Calcium 9.5 mg/dL (8.7-10.3); Carbon Dioxide 28.3 mmol/L (20.0-27.5); Chloride 100 mmol/L (96-109); Chol/HDL Ratio 2.72 Ratio; Globulin 2.5 g/dL (1.6-3.3); Glucose 115 mg/dL (70-110); LDL Cholesterol,Calculated 64.4 mg/dL (0.0-131.0); Non-African American GFR(CKD) 75.4 (60.0-200.0); Potassium 3.9 mmol/L (3.5-5.5); Sodium 141 mmol/L (135-145); Total Protein 6.7 g/dL (6.2-8.2)
[2022-06-27 18:09] LABS: Microalbumin Creatinine Ratio <30 mg/g Creat (0-30)
== END | disposition home or self-care (01) ==
LOC: LABWHC1 08:32
PROVIDERS: ATTEND Internal Medicine Endocrinology, Diabetes & Metabolism
DX: E11.65 Type 2 diabetes mellitus with hyperglycemia (principal)
CPT/HCPCS: 36415; 80053; 80061; 82043; 82570; 83036; 84443

== ENCOUNTER 2023-01-10 11:33 | Emergency (ER) | payer MEDICARE ==
[2023-01-10 11:51] VITALS: BP 150/76; PULSE 70; RESP 18; TEMP 97.7
--- NOTE | 2023-01-10 11:55 | ED ---
General Adult HPI - General Stated complaint: Diabetic/ right toe injury Source: patient Mode of arrival: ambulatory Limitations: no limitations - History of Present Illness Initial comments: The patient is a 72-year-old gentleman who is a diabetic and has a history of neuropathy presents to the emergency room By his for right great toenail issues. Patient went illness this 20 and the toenail and all the way backwards. He had disconnected from the nailbed but helix intact. This just happened so there is no significant surrounding erythema no active bleeding. Given the patient's obvious pain. The just became concerned as he has a history of diabetes and did not want it to get infected. - Related Data Home Medications Medication Instructions Recorded Confirmed Atorvastatin [Lipitor] 40 mg PO HS 07/26/13 09/01/20 Cetirizine HCl [Zyrtec] 10 mg PO DAILY 07/26/13 09/01/20 Apixaban [Eliquis] 5 mg PO BID 05/10/20 09/01/20 Exenatide Microspheres [Bydureon 2 mg SQ TH 05/10/20 09/01/20 Pen] INSULIN ASPART (NovoLOG) [NovoLOG See Protocol SQ TID-W/MEALS 05/10/20 09/01/20 (formulary)] Insulin Glargine,Hum.rec.anlog 80 unit SQ DAILY 05/10/20 09/01/20 [Paulino Hicks] Magnesium Oxide [Funk] 500 mg PO HS 05/10/20 09/01/20 Multivitamins, Thera [Multivitamin 1 tab PO DAILY 05/10/20 09/01/20 (formulary)] Olmesartan Medoxomil [Benicar] 20 mg PO DAILY 05/10/20 09/01/20 carvediloL [Coreg] 12.5 mg PO BID-W/MEALS 05/10/20 09/01/20 metFORMIN HCL [Glucophage] 1,000 mg PO BID 05/10/20 09/01/20 Budesonide/Formoterol Fumarate 2 puff INHALATION RT-BID 09/01/20 09/01/20 [Symbicort 160-4.5 Mcg Inhaler] Dextromethorphan Polistirex 10 ml PO DAILY PRN 09/01/20 09/01/20 [Delsym] Dm/Acetaminophen/Doxylamine [Vicks 30 ml PO HS 09/01/20 09/01/20 Nyquil Cold-Flu Liquid] Ipratropium-Albuterol Nebulize 3 ml INHALATION RT-QID 09/01/20 09/01/20 [Duoneb 0.5 mg-3 mg/3 ml Soln] predniSONE 5 mg PO DAILY 09/01/20 09/01/20 Previous Rx's Medication Instructions Recorded Furosemide [Lasix] 40 mg PO DAILY@1600 #30 tab 09/07/20 Furosemide [Lasix] 80 mg PO DAILY #30 tab 09/07/20 Potassium Chloride ER [K-Dur 20] 20 meq PO BID #60 tab.er.prt 09/07/20 guaiFENesin [Mucinex] 1,200 mg PO Q12HR tablet.er 09/07/20 metOLazone [Zaroxolyn] 2.5 mg PO DAILY #30 tab 09/07/20 predniSONE [Deltasone] 20 mg PO DAILY #5 tab 09/07/20 Bacitracin Zinc/Polymyxin B 1 applic TOPICAL BID 14 Days #15 gm 01/10/23 [Bacitracin-Polymyxin Ointment] Doxycycline [Vibramycin] 100 mg PO BID 10 Days #20 capsule 01/10/23 Allergies Allergy/AdvReac Type Severity Reaction Status Date / Time adhesive Allergy Rash/Hives Verified 01/10/23 11:41 Penicillins Allergy Rash/Hives Verified 01/10/23 11:41 Review of Systems ROS Statement: Those systems with pertinent positive or pertinent negative responses have been documented in the HPI. ROS Other: All systems not noted in ROS Statement are negative. Past Medical History Past Medical History: Atrial Flutter, COPD, Diabetes Mellitus, Hyperlipidemia, Hypertension, Musculoskeletal Disorder, Pneumonia, Prostate Disorder, Sleep Apnea/CPAP/BIPAP Additional Past Medical History / Comment(s): HX OF BLACK LUNG, home oxygen History of Any Multi-Drug Resistant Organisms: None Reported Past Surgical History: Back Surgery, Hernia Repair, Joint Replacement, Tonsillectomy Additional Past Surgical History / Comment(s): JACY KNEE REPLACEMENT, LEFT SHOULDER "BALL" REPLACED, right shoulder reverse arthroplasty in September 2019 at [facility] Additional Past Anesthesia/Blood Transfusion Reaction / Comment(s): STATES HAS AWAKENED DURING SEVERAL SX INCLUDING JOINT REPLACEMENT Past Psychological History: No Psychological Hx Reported Smoking Status: Never smoker Past Alcohol Use History: None Reported Past Drug Use History: None Reported - Past Family History Mother Family Medical History: CVA/TIA Father Additional Family Medical History / Comment(s): etoh General Exam Limitations: no limitations General appearance: alert, in no apparent distress Head exam: Present: atraumatic Eye exam: Present: normal appearance ENT exam: Present: normal exam Neck exam: Present: normal inspection Respiratory exam: Present: normal lung sounds bilaterally Extremities exam: Present: full ROM Neurological exam: Present: alert, oriented X3, CN II-XII intact Psychiatric exam: Present: normal affect, normal mood Skin exam: Present: warm, dry, other (right great toe nail has lifted off nailbed, mild erythema, no active bleeding, no drainage. nail in helix) Course Vital Signs 01/10/23 11:36 Temperature 97.7 F Pulse Rate 70 Respiratory 18 Rate Blood Pressure 150/76 O2 Sat by Pulse 96 Oximetry - Reevaluation(s) Reevaluation #1: 01/10/23 12:[address] Sanchez regarding nail care on this patient. the patient was given the option to leave the nail in its place and let it fall off on his own, or i could pull it out and wrap the toe afterwards. the patient preferred to have the nail removed. I successfully removed the nail with limited to no trauma. the wound was cleaned and bacitracin was applied. a bulky dressing was applied by the nurse. patient was given tetanus vaccination today. I will cover with antibiotics topically and orally for developement of any erythema. Procedures - Procedures Initial comment: patients right great toe was cleaned with Betadine. The nail was removed from the cuticle with forceps and minimal pressure. I did require cutting one edge of the skin that was still attached however there is limited trauma in the removal process. The wound was cleaned and bandaged prior to discharge. Total time 5 minutes Disposition Clinical Impression: Nail avulsion, toe, Tetanus toxoid vaccination administered at current visit Disposition: HOME SELF-CARE Condition: Good Instructions (If sedation given, give patient instructions): Diphtheria/Pertussis/Tetanus Vaccine (By injection), Nail Avulsion (ED), Nail Removal (ED) Is patient prescribed a controlled substance at d/c from ED?: No If prescribed controlled substance>3 days was MAPS reviewed?: No Referrals: Sheldon Galloway MD [Primary Care Provider] - 1-2 days Time of Disposition: 12:26
[2023-01-10] MEDS ORDERED: BACITRACIN OINT 1 EACH PACKET TOPICAL ONE (12:12)
[2023-01-10] MEDS ORDERED: DIPH,PERTUS(ACELL)TETVAC-LF 0.5 ML VIAL IM ONE (12:18)
== END 2023-01-10 14:28 | disposition home or self-care (01) ==
LOC: EC 11:33
DX: S91.201A Unspecified open wound of right great toe with damage to nail, initial encounter (principal); J44.9 Chronic obstructive pulmonary disease, unspecified; E78.5 Hyperlipidemia, unspecified; I10 Essential (primary) hypertension; G47.30 Sleep apnea, unspecified; E11.40 Type 2 diabetes mellitus with diabetic neuropathy, unspecified; Z79.4 Long term (current) use of insulin; Z79.84 Long term (current) use of oral hypoglycemic drugs; Z79.899 Other long term (current) drug therapy; Z23 Encounter for immunization; Z88.0 Allergy status to penicillin; Z91.09 Other allergy status, other than to drugs and biological substances; X58.XXXA Exposure to other specified factors, initial encounter
CPT/HCPCS: 90471; 90715; 99283

== ENCOUNTER → 2023-04-15 | Outpatient (CLI) | payer MEDICARE ==
[2023-04-15 12:22] LABS: ALT 20 U/L (10-49); AST 18 U/L (14-35); Albumin 4.1 g/dL (3.8-4.9); Albumin/Globulin Ratio 1.95 Ratio (1.60-3.17); Alkaline Phosphatase 87 U/L (41-126); BUN/Creat Ratio 14.44 Ratio (12.00-20.00); Calcium 9.3 mg/dL (8.7-10.3); Carbon Dioxide 30.6 mmol/L (21.6-31.8); Chloride 105 mmol/L (96-109); Chol/HDL Ratio 2.79 Ratio; Globulin 2.1 g/dL (1.6-3.3); Glucose 125 mg/dL (70-110); LDL Cholesterol,Calculated 59.9 mg/dL (0.0-131.0); Sodium 144 mmol/L (135-145); Total Protein 6.2 g/dL (6.2-8.2)
[2023-04-15 12:58] LABS: Microalbumin Creatinine Ratio <5 mg/g Cr (0-30)
== END | disposition home or self-care (01) ==
LOC: LABWHC1 07:38
PROVIDERS: ATTEND Internal Medicine Endocrinology, Diabetes & Metabolism
DX: E11.65 Type 2 diabetes mellitus with hyperglycemia (principal)
CPT/HCPCS: 36415; 80053; 80061; 82043; 82570; 83036; 84443

== ENCOUNTER → 2023-10-24 | Outpatient (CLI) | payer MEDICARE | END | disposition home or self-care (01) | LOC: LABPRL 10:10 | PROVIDERS: ATTEND Internal Medicine Endocrinology, Diabetes & Metabolism | DX: E11.65 Type 2 diabetes mellitus with hyperglycemia (principal) | CPT/HCPCS: 80053; 80061; 82043; 82570; 83036; 84443 ==

== ENCOUNTER → 2024-03-13 | Outpatient (CLI) | payer MEDICARE ==
[2024-03-13 11:07] LABS: ALT 26 U/L (10-49); AST 22 U/L (14-35); Albumin 4.1 g/dL (3.8-4.9); Albumin/Globulin Ratio 1.95 Ratio (1.60-3.17); Alkaline Phosphatase 95 U/L (41-126); BUN/Creat Ratio 14.33 Ratio (12.00-20.00); Blood Urea Nitrogen 12.9 mg/dL (9.0-27.0); Calcium 9.4 mg/dL (8.7-10.3); Carbon Dioxide 30.6 mmol/L (21.6-31.8); Chloride 100 mmol/L (96-109); Globulin 2.1 g/dL (1.6-3.3); Glucose 147 mg/dL (70-110); LDL Cholesterol,Calculated 82.4 mg/dL (0.0-131.0); Potassium 4.2 mmol/L (3.5-5.5); Sodium 142 mmol/L (135-145); Total Bilirubin 0.9 mg/dL (0.3-1.2); Total Protein 6.2 g/dL (6.2-8.2)
[2024-03-13 11:55] LABS: Microalbumin Creatinine Ratio <8 mg/g Cr (0-30)
== END | disposition home or self-care (01) ==
LOC: LABWHC1 07:05
PROVIDERS: ATTEND Internal Medicine Endocrinology, Diabetes & Metabolism
DX: E11.65 Type 2 diabetes mellitus with hyperglycemia (principal)
CPT/HCPCS: 36415; 80053; 80061; 82043; 82570; 83036; 84443